=== PATIENT | male | born 1965 ===

== ENCOUNTER 2021-07-16 09:27 | Inpatient (IN) | payer SELFPAY ==
--- NOTE | 2021-07-16 09:49 | Emergency Department Report ---
ED General Adult HPI - General Chief complaint: Altered Mental Status Stated complaint: Seizure Time Seen by Provider: 07/16/21 09:47 Source: patient, EMS (Verbal report received from emergency medical services. EMS documentation not available at time of chart dictation ), RN notes reviewed, old records reviewed Mode of arrival: Stretcher Limitations: Altered Mental Status, Physical Limitation - History of Present Illness Initial comments: The patient is a 55-year-old gentleman. He is not known to myself previously. He is brought to the hospital by emergency medical services today with a complaint of weakness and altered mental status and possible seizure. EMS reports tachycardia in the field. They report normal Accu-Chek in the field. In the emergency room, the patient is awake, and follows commands, but is confused. He denies physical pain. He is not having hallucinations. He denies homicidality and suicidality. He drinks alcohol regularly. He does not believe he has any long-term medical problems that he is aware of. He is somewhat confused in the emergency room, with tremors, tongue fasciculations, and does not know if he has had an alcohol withdrawal seizure previously. Patient not accompanied by friends or family in the past for collateral information or additional information. - Related Data Allergies Allergy/AdvReac Type Severity Reaction Status Date / Time No Known Allergies Allergy Unverified 07/16/21 09:42 ED Review of Systems ROS: Stated complaint: Seizure Other details as noted in HPI Comment: Unobtainable due to pts medical conditions Constitutional: malaise, weakness Respiratory: denies: cough Cardiovascular: denies: chest pain Gastrointestinal: denies: abdominal pain Neurological: weakness Psychiatric: denies: homicidal thoughts, suicidal thoughts ED Physical Exam - General Limitations: Altered Mental Status, Physical Limitation General appearance: alert, anxious, in distress, obese - Head Head exam: Present: atraumatic, normocephalic - Eye Eye exam: Present: normal appearance, EOMI. Absent: nystagmus - ENT ENT exam: Present: mucous membranes dry, normal external ear exam, other (Tongue fasciculations noted) - Neck Neck exam: Present: normal inspection, full ROM. Absent: tenderness, meningismus - Respiratory Respiratory exam: Present: normal lung sounds bilaterally. Absent: respiratory distress, wheezes, rales, rhonchi, stridor, decreased breath sounds - Cardiovascular Cardiovascular Exam: Present: normal rhythm, tachycardia, normal heart sounds. Absent: bradycardia, irregular rhythm, systolic murmur, diastolic murmur, rubs, gallop - GI/Abdominal GI/Abdominal exam: Present: soft. Absent: distended, tenderness, guarding, rebound, rigid, pulsatile mass - Rectal Rectal exam: Present: deferred - Extremities Exam Extremities exam: Present: normal inspection, full ROM, other (2+ pulses noted in the bilateral upper and lower extremities. There is no palpable cord. negative Homans sign. Muscular compartments are soft. The pelvis is stable.). Absent: pedal edema, calf tenderness - Back Exam Back exam: Present: normal inspection, full ROM. Absent: tenderness, CVA tenderness (R), CVA tenderness (L), paraspinal tenderness, vertebral tenderness - Neurological Exam Neurological exam: Present: altered, other (No facial droop. Tongue midline. Extraocular movements intact bilaterally. Facial sensation intact to light touch in V1, V2, V3 distribution bilaterally. 5 and a 5 strength in 4 extremities. Sensation intact to light touch in 4 extremities.) - Psychiatric Psychiatric exam: Present: anxious. Absent: homicidal ideation, suicidal ideation - Skin Skin exam: Present: warm, dry, intact, normal color. Absent: rash ED Course Vital Signs 07/16/21 09:41 Temperature 99.1 F Pulse Rate 126 H Respiratory 16 Rate Blood Pressure 168/137 [Right] O2 Sat by Pulse 97 Oximetry ED Medical Decision Making - Lab Data Result diagrams: 07/16/21 10:57 07/16/21 09:57 Vital Signs 07/16/21 09:41 Temperature 99.1 F Pulse Rate 126 H Respiratory 16 Rate Blood Pressure 168/137 [Right] O2 Sat by Pulse 97 Oximetry Lab Results 07/16/21 07/16/21 07/16/21 Range/Units 09:57 09:57 09:57 PT 13.6 (12.2-14.9) Sec. INR 0.94 (0.87-1.13) APTT 26.1 (24.2-36.6) Sec. Sodium 135 L (137-145) mmol/L Potassium 3.8 (3.6-5.0) mmol/L Chloride 91.7 L (98-107) mmol/L Carbon Dioxide 18 L (22-30) mmol/L Anion Gap 29 mmol/L BUN 6 L (9-20) mg/dL Creatinine 0.9 (0.8-1.3) mg/dL Estimated GFR > 60 ml/min BUN/Creatinine Ratio 7 % Glucose 241 H (75-100) mg/dL POC Glucose (70-105) mg/dL Calcium 9.3 (8.4-10.2) mg/dL Magnesium 1.40 L (1.7-2.3) mg/dL Total Bilirubin 0.50 (0.1-1.2) mg/dL AST 194 H (5-40) units/L ALT 123 H (7-56) units/L Alkaline Phosphatase 122 (35-129) units/L Ammonia 47.0 (25-60) umol/L Total Creatine Kinase 176 H (55-170) units/L Total Protein 8.9 H (6.3-8.2) g/dL Albumin 4.5 (3.9-5) g/dL Albumin/Globulin Ratio 1.0 % Salicylates (2.8-20.0) mg/dL Acetaminophen (10.0-30.0) ug/mL Plasma/Serum Alcohol (0-0.07) % 07/16/21 07/16/21 07/16/21 Range/Units 09:57 09:57 09:57 PT (12.2-14.9) Sec. INR (0.87-1.13) APTT (24.2-36.6) Sec. Sodium (137-145) mmol/L Potassium (3.6-5.0) mmol/L Chloride (98-107) mmol/L Carbon Dioxide (22-30) mmol/L Anion Gap mmol/L BUN (9-20) mg/dL Creatinine (0.8-1.3) mg/dL Estimated GFR ml/min BUN/Creatinine Ratio % Glucose (75-100) mg/dL POC Glucose (70-105) mg/dL Calcium (8.4-10.2) mg/dL Magnesium (1.7-2.3) mg/dL Total Bilirubin (0.1-1.2) mg/dL AST (5-40) units/L ALT (7-56) units/L Alkaline Phosphatase (35-129) units/L Ammonia (25-60) umol/L Total Creatine Kinase (55-170) units/L Total Protein (6.3-8.2) g/dL Albumin (3.9-5) g/dL Albumin/Globulin Ratio % Salicylates < 0.3 L (2.8-20.0) mg/dL Acetaminophen 5.0 L (10.0-30.0) ug/mL Plasma/Serum Alcohol < 0.01 (0-0.07) % 07/16/21 07/16/21 Range/Units 09:57 10:04 PT (12.2-14.9) Sec. INR (0.87-1.13) APTT (24.2-36.6) Sec. Sodium (137-145) mmol/L Potassium (3.6-5.0) mmol/L Chloride (98-107) mmol/L Carbon Dioxide (22-30) mmol/L Anion Gap mmol/L BUN (9-20) mg/dL Creatinine (0.8-1.3) mg/dL Estimated GFR ml/min BUN/Creatinine Ratio % Glucose (75-100) mg/dL POC Glucose 251 H (70-105) mg/dL Calcium (8.4-10.2) mg/dL Magnesium (1.7-2.3) mg/dL Total Bilirubin (0.1-1.2) mg/dL AST (5-40) units/L ALT (7-56) units/L Alkaline Phosphatase (35-129) units/L Ammonia (25-60) umol/L Total Creatine Kinase 176 H (55-170) units/L Total Protein (6.3-8.2) g/dL Albumin (3.9-5) g/dL Albumin/Globulin Ratio % Salicylates (2.8-20.0) mg/dL Acetaminophen (10.0-30.0) ug/mL Plasma/Serum Alcohol (0-0.07) % - EKG Data -: EKG Interpreted by Ri EKG shows normal: sinus rhythm Rate: normal - EKG Data When compared to previous EKG there are: previous EKG unavailable 07/16/21 12:13 EKG interpreted at 10: 45 Sinus rhythm, 87 bpm. Normal axis, normal intervals, motion artifact, and high left ventricular voltage. This is an abnormal EKG. This is not a STEMI. - Radiology Data Radiology results: pending, report reviewed, image reviewed CT HEAD WITHOUT CONTRAST INDICATION / CLINICAL INFORMATION: Seizure. Altered mental status. TECHNIQUE: Axial imaging performed from the skull apex through the skull base without the use of contrast. Sagittal and coronal reformatted images. All CT scans at this location are performed using CT dose reduction for ALARA by means of automated exposure control. COMPARISON: None available. FINDINGS: CEREBRAL PARENCHYMA: Mild diffuse volume loss and chronic microvascular ischemic changes in the white matter are noted. 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 Subcentimeter chronic lacunar infarct is also identified in the posterior right thalamus. No acute parenchymal abnormality is detected. HEMORRHAGE: None. EXTRA-AXIAL SPACES: Normal in size and morphology for the patient's age. VENTRICULAR SYSTEM: Normal in size and morphology for the patient's age. MIDLINE SHIFT OR HERNIATION: None. CEREBELLUM / BRAINSTEM: No significant abnormality. CALVARIUM: No significant abnormality. ORBITS: Normal as visualized. PARANASAL SINUSES / MASTOID AIR CELLS: Normal as visualized. SOFT TISSUES of HEAD: No significant abnormality. ADDITIONAL FINDINGS: None. IMPRESSION: No acute intracranial abnormality. Chronic findings as outlined above. CT CERVICAL SPINE WITHOUT CONTRAST INDICATION: Seizure. TECHNIQUE: Axial imaging performed through the cervical spine without the use of contrast. Sagittal and coronal reconstructed images were also reviewed. All CT scans at this location are performed using CT dose reduction for ALARA by means of automated exposure control. COMPARISON: None FINDINGS: Alignment: Spinal alignment is normal. Bones: There is no acute osseous abnormality. Minimal discogenic DJD is identified at C4-5, C5-6 and C6-7. The remaining levels are unremarkable. Soft tissues: No acute or significant incidental soft tissue abnormality. IMPRESSION: No acute abnormality. Signer Name: Clement Sheets Jr, MD Signed: 07/16/2021 9:46 AM Workstation Name: [id number] CHEST 1 VIEW 07/16/2021 9:51 AM INDICATION / CLINICAL INFORMATION: Altered Mental Status. COMPARISON: None available. FINDINGS: SUPPORT DEVICES: None. HEART / MEDIASTINUM: No significant abnormality. LUNGS / PLEURA: No significant pulmonary or pleural abnormality. No pneumothorax. ADDITIONAL FINDINGS: No significant additional findings. IMPRESSION: 1. No acute findings. Signer Name: Wilson Valle MD Signed: 07/16/2021 9:06 AM Workstation Name: [id number] - Medical Decision Making Differential diagnosis, including but not limited to: Alcohol withdrawal, alc ohol-related seizure, electrolyte derangement, dehydration, transaminitis Assessment and plan: 55-year-old gentleman with evidence of alcohol withdrawal, manifested by seizure, tremor, confusion, tongue fasciculations, laboratory studies demonstrate stigmata of alcoholic disease, including thrombocytopenia, metabolic acidosis, and transaminitis. A noncontrast CT scan of the brain and cervical spine were negative for acute traumatic findings. Chest x-ray was unremarkable. Patient will be given Valium, banana bag and IV fluids. Urinalysis is pending. He is cooperative and not homicidal or suicidal at this time. His initial ciwa score was 20 The patient meets criteria for admission hospitalization secondary to the aforementioned. Hospital physician, Dr. Song to admit patient to the medical service. Critical Care Time: Yes Critical care time in (mins) excluding proc time.: 35 Critical care attestation.: If time is entered above; I have spent that time in minutes in the direct care of this critically ill patient, excluding procedure time. ED Disposition Clinical Impression: Transaminitis, Thrombocytopenia, Metabolic acidosis, Alcohol withdrawal delirium, acute, hyperactive, Hypomagnesemia Disposition: ADMITTED INPATIENT Is pt being admited?: Yes Does the pt Need Aspirin: No Condition: Fair Referrals: PRIMARY CARE, [Primary Care Provider] - 3-5 Days
[2021-07-16] MEDS ORDERED: levETIRAcetam 1000 MG/NS 0.75% 1,000 MG/100 ML BAG IV ONE (10:02)
[2021-07-16] MEDS ORDERED: LORazepam 2 MG/ML VIAL IV PRN (10:02)
[2021-07-16] MEDS ORDERED: diazePAM 10 MG/2 ML SYRINGE IV ONE (10:02)
[2021-07-16] MEDS ORDERED: SODIUM CHLORIDE 0.9% 1000 ML 1,000 ML ONE (10:05)
--- NOTE | 2021-07-16 10:11 | XRay Report ---
CHEST 1 VIEW 07/16/2021 9:51 AM INDICATION / CLINICAL INFORMATION: Altered Mental Status. COMPARISON: None available. FINDINGS: SUPPORT DEVICES: None. HEART / MEDIASTINUM: No significant abnormality. LUNGS / PLEURA: No significant pulmonary or pleural abnormality. No pneumothorax. ADDITIONAL FINDINGS: No significant additional findings. IMPRESSION: 1. No acute findings. Signer Name: Wilson Valle MD Signed: 07/16/2021 10:06 AM Workstation Name: [id number]
[2021-07-16] MEDS: chlordiazePOXIDE 25 MG CAP PO PRN (10:26)
[2021-07-16] MEDS: THIAMINE 100 MG, FOLIC ACID 1 MG, MULTIPLE VITAMIN INJ, ADULT 10 ML in SODIUM CHLORIDE ... IV ONE (10:26)
[2021-07-16 10:45] LABS: Alanine Aminotransferase 123 units/L (7-56); Albumin 4.5 g/dL (3.9-5); BUN/Creatinine Ratio 7; Blood Urea Nitrogen 6 mg/dL (9-20); Calcium 9.3 mg/dL (8.4-10.2); Hemolysis Index 5
--- NOTE | 2021-07-16 10:51 | Cat Scan Report ---
CT HEAD WITHOUT CONTRAST INDICATION / CLINICAL INFORMATION: Seizure. Altered mental status. TECHNIQUE: Axial imaging performed from the skull apex through the skull base without the use of cont rast. Sagittal and coronal reformatted images. All CT scans at this location are performed using CT dose reduction for ALARA by means of automated exposure control. COMPARISON: None available. FINDINGS: CEREBRAL PARENCHYMA: Mild diffuse volume loss and chronic microvascular ischemic changes in the white matter are noted. A large chronic infarct in the right MCA distribution measures up to 7.7 x 4.1 m i n axial plane. Subcentimeter chronic lacunar infarct is also identified in the posterior right thalam us. No acute parenchymal abnormality is detected. HEMORRHAGE: None. EXTRA-AXIAL SPACES: Normal in size and morphology for the patient's age. VENTRICULAR SYSTEM: Normal in size and morphology for the patient's age. MIDLINE SHIFT OR HERNIATION: None. CEREBELLUM / BRAINSTEM: No significant abnormality. CALVARIUM: No significant abnormality. ORBITS: Normal as visualized. PARANASAL SINUSES / MASTOID AIR CELLS: Normal as visualized. SOFT TISSUES of HEAD: No significant abnormality. ADDITIONAL FINDINGS: None. IMPRESSION: No acute intracranial abnormality. Chronic findings as outlined above. CT CERVICAL SPINE WITHOUT CONTRAST INDICATION: Seizure. TECHNIQUE: Axial imaging performed through the cervical spine without the use of contrast. Sagittal and coronal reconstructed images were also reviewed. All CT scans at this location are performed us ing CT dose reduction for ALARA by means of automated exposure control. COMPARISON: None FINDINGS: Alignment: Spinal alignment is normal. Bones: There is no acute osseous abnormality. Minimal discogenic DJD is identified at C4-5, C5-6 an d C6-7. The remaining levels are unremarkable. Soft tissues: No acute or significant incidental soft tissue abnormality. IMPRESSION: No acute abnormality. Signer Name: Clement Sheets Jr, MD Signed: 07/16/2021 10:46 AM Workstation Name: [id number]
[2021-07-16 10:54] LABS: INR 0.94 (0.87-1.13); Partial Thromboplastin Time 26.1 Sec. (24.2-36.6)
[2021-07-16] MEDS ORDERED: LACTATED RINGERS 1,000 ML IV ONE (10:54)
[2021-07-16 11:21] LABS: Hematocrit 41.3 % (35.5-45.6); Hemoglobin 13.3 gm/dl (11.8-15.2); Mean Corpuscular HGB Conc 32 % (32-34); Mean Corpuscular Volume 97 fl (84-94); Red Blood Count 4.26 M/mm3 (3.65-5.03)
[2021-07-16 11:26] LABS: Platelet Count 91 K/mm3 (140-440)
[2021-07-16] MEDS: LORazepam 2 MG/ML VIAL IV PRN ×5 (12:01→23:24)
[2021-07-16] MEDS: SODIUM CHLORIDE 0.9% 1000 ML 3,000 ML IV ONE ×2 (12:06→12:07)
[2021-07-16] MEDS ORDERED: MAGNESIUM SULFATE 2 GM/50 ML BAG IV ONE (12:18)
[2021-07-16 13:56] LABS: Band Neutrophils # (Manual) 0.2 K/mm3; Total Cells Counted 100
[2021-07-16 13:57] LABS: Platelet Estimate Consistent w Auto
[2021-07-16] MEDS ORDERED: SODIUM BICARB 8.4% 50 MEQ/50 ML SYRINGE IV ONE (17:30)
--- NOTE | 2021-07-16 17:39 | History and Physical Report ---
History of Present Illness Chief complaint: He said he was sick History of present illness: 55 YO Male with ETOH Dependence presents to ED for evaluation. Patient is stuporous with diminished cognition at the time my evaluation is unable to provide history. Patient history provided by EMS staff, ED staff, as well as information gained from aislinn Winston. As per staff EMS was notified by aislinn Winston when patient was found to be confused and approached a neighbor for assistance. EMS was notified and upon arrival the patient was found to be in distress and subsequent transported to [facility] for further care and evaluation of the aforementioned symptoms. The patient was seen and evaluated in the emergency department. All lab and imaging studies reviewed. Patient found to be tremulous, with confabulations, nausea, and have clinical symptoms consistent with delirium tremens, metabolic acidosis, metabolic encephalopathy, as well as chronic liver disease complicated by elevated liver function test. Patient admitted to medical floor and initiated on CIWA protocol and treated with supportive care. Patient remains stuporous at the time my evaluation but has a positive gag reflex and able to protect his airway without difficulty. No further history is obtainable. No prior admission for review. No medication listed at time of admission for reconciliation. Advanced care planning conducted in ED. Past History Past Medical History: No medical history, other (Unable to obtain) Past Surgical History: No surgical history, Other (Unable to obtain) Social history: single, other (Unable to obtain) Medications and Allergies Allergies Allergy/AdvReac Type Severity Reaction Status Date / Time No Known Allergies Allergy Unverified 07/16/21 09:42 Active Meds: Active Medications Chlordiazepoxide HCl (Chlordiazepoxide 25 Mg Cap) 50 mg PO Q1HR PRN PRN Reason: CIWA-Ar 8-15 Last Admin: 07/16/21 10:26 Dose: 50 mg Documented by: Lorazepam (Lorazepam 2 Mg/Ml Vial) 2 mg IV Q1HR PRN PRN Reason: CIWA-Ar 8-15 Lorazepam (Lorazepam 2 Mg/Ml Vial) 4 mg IV Q1HR PRN PRN Reason: CIWA-Ar 16-25 Last Admin: 07/16/21 12:01 Dose: 4 mg Documented by: Lorazepam (Lorazepam 2 Mg/Ml Vial) 4 mg IV Q15MIN PRN PRN Reason: CIWA-Ar >25 Review of Systems ROS unobtainable: due to mental status Exam - Constitutional Vitals: Temp Pulse Resp BP Pulse Ox 99.1 F 100 H 21 139/76 95 07/16/21 09:41 07/16/21 15:31 07/16/21 15:31 07/16/21 15:31 07/16/21 15:31 General appearance: Present: mild distress - EENT Eyes: Present: PERRL ENT: clear oral mucosa, hearing decreased - Neck Neck: Present: supple, normal ROM - Respiratory Respiratory effort: normal Respiratory: bilateral: CTA - Cardiovascular Rhythm: other (Tachycardia) Heart Sounds: Present: S1 & S2. Absent: rub, click - Extremities Extremities: pulses symmetrical, No edema Peripheral Pulses: within normal limits - Abdominal General gastrointestinal: Present: soft, non-tender, non-distended, normal bowel sounds Male genitourinary: Present: normal - Integumentary Integumentary: Present: dry, clammy, decreased turgor - Musculoskeletal Musculoskeletal: generalized weakness - Psychiatric Psychiatric: no appropriate mood/affect, no intact judgment & insight, no memory intact, agitated - Neurologic Neurologic: CNII-XII intact, no focal deficits, moves all extremities, no gait normal Results - Labs CBC & Chem 7: 07/16/21 10:57 07/16/21 09:57 Labs: Abnormal lab results 07/16/21 07/16/21 07/16/21 Range/Units 09:57 09:57 09:57 MCV (84-94) fl Plt Count (140-440) K/mm3 Seg Neuts % (Manual) (40.0-70.0) % Lymphocytes % (Manual) (13.4-35.0) % Lymphocytes # (Manual) (1.2-5.4) K/mm3 Sodium 135 L (137-145) mmol/L Chloride 91.7 L (98-107) mmol/L Carbon Dioxide 18 L (22-30) mmol/L BUN 6 L (9-20) mg/dL Glucose 241 H (75-100) mg/dL POC Glucose (70-105) mg/dL Magnesium 1.40 L (1.7-2.3) mg/dL AST 194 H (5-40) units/L ALT 123 H (7-56) units/L Total Creatine Kinase 176 H (55-170) units/L Total Protein 8.9 H (6.3-8.2) g/dL Salicylates < 0.3 L (2.8-20.0) mg/dL Acetaminophen 5.0 L (10.0-30.0) ug/mL 07/16/21 07/16/21 07/16/21 Range/Units 09:57 10:04 10:57 MCV 97 H (84-94) fl Plt Count 91 L (140-440) K/mm3 Seg Neuts % (Manual) 89.0 H (40.0-70.0) % Lymphocytes % (Manual) 6.0 L (13.4-35.0) % Lymphocytes # (Manual) 0.5 L (1.2-5.4) K/mm3 Sodium (137-145) mmol/L Chloride (98-107) mmol/L Carbon Dioxide (22-30) mmol/L BUN (9-20) mg/dL Glucose (75-100) mg/dL POC Glucose 251 H (70-105) mg/dL Magnesium (1.7-2.3) mg/dL AST (5-40) units/L ALT (7-56) units/L Total Creatine Kinase 176 H (55-170) units/L Total Protein (6.3-8.2) g/dL Salicylates (2.8-20.0) mg/dL Acetaminophen (10.0-30.0) ug/mL Assessment and Plan - Patient Problems (1) Delirium tremens Current Visit: Yes Status: Acute Plan to address problem: Alcohol withdrawal protocol: CIWA protocol, IV fluid resuscitation therapy, banana bag, thiamine, folic acid, multivitamin, magnesium level, phosphorus level, neuro check, seizure precautions, aspiration precautions (2) Metabolic encephalopathy Current Visit: Yes Status: Acute Plan to address problem: CTA, neuro check, seizure cautions, aspiration precautions, supportive care. (3) Metabolic acidosis Current Visit: Yes Status: Acute Plan to address problem: BMP, IV fluid resuscitation therapy, repeat BMP in a.m. (4) Transaminitis Current Visit: Yes Status: Acute (5) DVT prophylaxis Current Visit: Yes Status: Acute Plan to address problem: SCDs bilateral lower extremities while in bed (6) Advance care planning Current Visit: Yes Status: Acute Plan to address problem: Disease education conducted, care plan discussed, diagnoses discussed, prognosis discussed, +30 minutes.
[2021-07-16] MEDS ORDERED: ALBUTEROL 2.5 MG/3 ML NEBU IH PRN (17:44)
[2021-07-16] MEDS ORDERED: HYDROmorphone 1 MG/1 ML INJ IV PRN (17:44)
[2021-07-16] MEDS ORDERED: oxyCODONE /ACETAMINOPHEN 5-325MG TAB PO PRN (17:44)
[2021-07-16] MEDS ORDERED: ACETAMINOPHEN 325 MG TAB PO PRN (17:44)
[2021-07-16] MEDS ORDERED: ONDANSETRON 4 MG/2 ML INJ IV PRN (17:44)
[2021-07-16] MEDS ORDERED: MAGNESIUM SULFATE 1 GM in SODIUM CHLORIDE 0.9% 50 ML IV ONE (17:51)
[2021-07-16] MEDS ORDERED: THIAMINE 100 MG TAB PO ONE (18:00)
[2021-07-16] MEDS ORDERED: MULTIVITAMINS ,THERAPEUTIC TAB PO ONE (18:00)
--- NOTE | 2021-07-16 18:41 | Electrocardiograph Report ---
[facility] Test Date: 2021-07-16 Test Time: 10:45:26 Pat Name: NAA OLIVAS Department: Room: [facility] Gender: M Administration Internship: CHRIS : 1965 Requested By: HEAVENLY APODACA Order Number: [id number] Reading MD: Della Garcia Measurements Intervals [place] Rate: 87 P: 9 AK: 137 QRS: 35 QRSD: 97 T: 46 QT: 349 QTc: 421 Interpretive Statements Sinus rhythm No previous ECG available for comparison Electronically Signed On 07-16-2021 18:41:12 EST by Della Garcia
[2021-07-16] MEDS: SODIUM CHLORIDE 0.9% 1000 ML 1,000 ML IV SCH (23:24)
[2021-07-17] MEDS: LORazepam 2 MG/ML VIAL IV PRN ×3 (05:51→20:59)
[2021-07-17 06:37] LABS: Alanine Aminotransferase 95 units/L (7-56); Albumin 4.3 g/dL (3.9-5); Blood Urea Nitrogen 6 mg/dL (9-20); Calcium 8.7 mg/dL (8.4-10.2); Hemolysis Index 1
[2021-07-17 06:46] LABS: BUN/Creatinine Ratio 9
[2021-07-17] MEDS: FOLIC ACID 1 MG TAB PO SCH (09:05)
[2021-07-17] MEDS: SODIUM CHLORIDE 0.9% 1000 ML 1,000 ML IV SCH (09:05)
[2021-07-17] MEDS ORDERED: POTASSIUM CHLORIDE 20 MEQ PACKET FEEDTUBE SCH (13:00)
[2021-07-17] MEDS ORDERED: MAGNESIUM SULFATE 1 GM in SODIUM CHLORIDE 0.9% 50 ML IV ONE (13:00)
--- NOTE | 2021-07-17 15:30 | Progress Note ---
Assessment and Plan - Patient Problems (1) Delirium tremens Current Visit: Yes Status: Acute Plan to address problem: Alcohol withdrawal protocol: CIWA protocol, IV fluid resuscitation therapy, banana bag, thiamine, folic acid, multivitamin, magnesium repletion, phosphorus repletion, neuro check, seizure precautions, aspiration precautions (2) Metabolic encephalopathy Current Visit: Yes Status: Acute Plan to address problem: CTA, neuro check, seizure cautions, aspiration precautions, supportive care. (3) Metabolic acidosis Current Visit: Yes Status: Acute Plan to address problem: BMP, IV fluid resuscitation therapy, repeat BMP in a.m. (4) Transaminitis Current Visit: Yes Status: Acute (5) DVT prophylaxis Current Visit: Yes Status: Acute Plan to address problem: SCDs bilateral lower extremities while in bed (6) Advance care planning Current Visit: Yes Status: Acute Plan to address problem: Disease education conducted, care plan discussed, diagnoses discussed, prognosis discussed, +30 minutes. History Interval history: 55 YO Male HD #2 with with ETOH Dependence, [place] patient found to be tremulous again today. Patient has confabulations. Patient and medical strengths. And continues to be stuporous no reported nursing events. Hospitalist Physical - Constitutional Vitals: Temp Pulse Resp BP Pulse Ox 98.6 F 90 18 156/91 99 07/17/21 12:04 07/17/21 12:04 07/17/21 12:04 07/17/21 12:04 07/17/21 12:04 General appearance: Present: mild distress - EENT Eyes: Present: PERRL ENT: hearing decreased - Neck Neck: Present: supple - Respiratory Respiratory effort: normal Respiratory: bilateral: CTA - Cardiovascular Rhythm: regular Heart Sounds: Present: S1 & S2 - Extremities Extremities: no ischemia Peripheral Pulses: within normal limits - Abdominal General gastrointestinal: soft, non-tender, non-distended - Integumentary Integumentary: Present: clear, clammy - Psychiatric Psychiatric: no appropriate mood/affect, no intact judgment & insight, agitated - Neurologic Neurologic: CNII-XII intact, no focal deficits, moves all extremities, no gait normal Results - Labs CBC & Chem 7: 07/16/21 10:57 07/17/21 05:02 Labs: Laboratory Last Values WBC 7.8 K/mm3 (4.5-11.0) 07/16/21 10:57 RBC 4.26 M/mm3 (3.65-5.03) 07/16/21 10:57 Hgb 13.3 gm/dl (11.8-15.2) 07/16/21 10:57 Hct 41.3 % (35.5-45.6) 07/16/21 10:57 MCV 97 fl (84-94) H 07/16/21 10:57 MCH 31 pg (28-32) 07/16/21 10:57 MCHC 32 % (32-34) 07/16/21 10:57 RDW 14.0 % (13.2-15.2) 07/16/21 10:57 Plt Count 91 K/mm3 (140-440) L 07/16/21 10:57 Add Manual Diff Complete 07/16/21 10:57 Total Counted 100 07/16/21 10:57 Seg Neutrophils % Special Event Assistant 07/16/21 10:57 Seg Neuts % (Manual) 89.0 % (40.0-70.0) H 07/16/21 10:57 Band Neutrophils % 2.0 % 07/16/21 10:57 Lymphocytes % (Manual) 6.0 % (13.4-35.0) L 07/16/21 10:57 Monocytes % (Manual) 2.0 % (0.0-7.3) 07/16/21 10:57 Basophils % (Manual) 1.0 % (0.0-1.8) 07/16/21 10:57 Nucleated RBC % Not Reportable 07/16/21 10:57 Seg Neutrophils # Man 6.9 K/mm3 (1.8-7.7) 07/16/21 10:57 Band Neutrophils # 0.2 K/mm3 07/16/21 10:57 Lymphocytes # (Manual) 0.5 K/mm3 (1.2-5.4) L 07/16/21 10:57 Abs React Lymphs (Man) 0.0 K/mm3 07/16/21 10:57 Monocytes # (Manual) 0.2 K/mm3 (0.0-0.8) 07/16/21 10:57 Eosinophils # (Manual) 0.0 K/mm3 (0.0-0.4) 07/16/21 10:57 Basophils # (Manual) 0.1 K/mm3 (0.0-0.1) 07/16/21 10:57 Metamyelocytes # 0.0 K/mm3 07/16/21 10:57 Myelocytes # 0.0 K/mm3 07/16/21 10:57 Promyelocytes # 0.0 K/mm3 07/16/21 10:57 Blast Cells # 0.0 K/mm3 07/16/21 10:57 WBC Morphology Not Reportable 07/16/21 10:57 Hypersegmented Neuts Not Reportable 07/16/21 10:57 Hyposegmented Neuts Not Reportable 07/16/21 10:57 Hypogranular Neuts Not Reportable 07/16/21 10:57 Smudge Cells Not Reportable 07/16/21 10:57 Toxic Granulation Not Reportable 07/16/21 10:57 Toxic Vacuolation Not Reportable 07/16/21 10:57 Dohle Bodies Not Reportable 07/16/21 10:57 Pelger-Huet Anomaly Not Reportable 07/16/21 10:57 Lanette Rods Not Reportable 07/16/21 10:57 Platelet Estimate Consistent w auto 07/16/21 10:57 Clumped Platelets Not Reportable 07/16/21 10:57 Plt Clumps, EDTA Not Reportable 07/16/21 10:57 Large Platelets Not Reportable 07/16/21 10:57 Giant Platelets Not Reportable 07/16/21 10:57 Platelet Satelliting Not Reportable 07/16/21 10:57 Plt Morphology Comment Not Reportable 07/16/21 10:57 RBC Morphology Not Reportable 07/16/21 10:57 Dimorphic RBCs Not Reportable 07/16/21 10:57 Polychromasia Not Reportable 07/16/21 10:57 Hypochromasia Not Reportable 07/16/21 10:57 Poikilocytosis Not Reportable 07/16/21 10:57 Anisocytosis Not Reportable 07/16/21 10:57 Microcytosis Not Reportable 07/16/21 10:57 Macrocytosis Not Reportable 07/16/21 10:57 Spherocytes Not Reportable 07/16/21 10:57 Pappenheimer Bodies Not Reportable 07/16/21 10:57 Sickle Cells Not Reportable 07/16/21 10:57 Target Cells Not Reportable 07/16/21 10:57 Tear Drop Cells Not Reportable 07/16/21 10:57 Ovalocytes Not Reportable 07/16/21 10:57 Helmet Cells Not Reportable 07/16/21 10:57 Rice-[place] Bodies Not Reportable 07/16/21 10:57 [place] Rings Not Reportable 07/16/21 10:57 [place] Cells Not Reportable 07/16/21 10:57 Bite Cells Not Reportable 07/16/21 10:57 Crenated Cell Not Reportable 07/16/21 10:57 Elliptocytes Not Reportable 07/16/21 10:57 Acanthocytes (Spur) Not Reportable 07/16/21 10:57 Rouleaux Not Reportable 07/16/21 10:57 Hemoglobin C Crystals Not Reportable 07/16/21 10:57 Schistocytes Not Reportable 07/16/21 10:57 Malaria parasites Not Reportable 07/16/21 10:57 Tay Bodies Not Reportable 07/16/21 10:57 Hem Pathologist Commnt No 07/16/21 10:57 PT 13.6 Sec. (12.2-14.9) 07/16/21 09:57 INR 0.94 (0.87-1.13) 07/16/21 09:57 APTT 26.1 Sec. (24.2-36.6) 07/16/21 09:57 Sodium 141 mmol/L (137-145) 07/17/21 05:02 Potassium 2.8 mmol/L (3.6-5.0) L* D 07/17/21 05:02 Chloride 95.8 mmol/L (98-107) L 07/17/21 05:02 Carbon Dioxide 27 mmol/L (22-30) D 07/17/21 05:02 Anion Gap 21 mmol/L 07/17/21 05:02 BUN 6 mg/dL (9-20) L 07/17/21 05:02 Creatinine 0.7 mg/dL (0.8-1.3) L 07/17/21 05:02 Estimated GFR > 60 ml/min 07/17/21 05:02 BUN/Creatinine Ratio 9 % 07/17/21 05:02 Glucose 107 mg/dL (75-100) H 07/17/21 05:02 POC Glucose 109 mg/dL (70-105) H 07/17/21 11:14 Calcium 8.7 mg/dL (8.4-10.2) 07/17/21 05:02 Phosphorus 3.60 mg/dL (2.5-4.5) 07/16/21 18:03 Magnesium 1.40 mg/dL (1.7-2.3) L 07/16/21 09:57 Total Bilirubin 0.70 mg/dL (0.1-1.2) 07/17/21 05:02 AST 115 units/L (5-40) H 07/17/21 05:02 ALT 95 units/L (7-56) H 07/17/21 05:02 Alkaline Phosphatase 88 units/L (35-129) 07/17/21 05:02 Ammonia 47.0 umol/L (25-60) 07/16/21 09:57 Total Creatine Kinase 176 units/L (55-170) H 07/16/21 09:57 Total Creatine Kinase 176 units/L (55-170) H 07/16/21 09:57 Total Protein 8.7 g/dL (6.3-8.2) H 07/17/21 05:02 Albumin 4.3 g/dL (3.9-5) 07/17/21 05:02 Albumin/Globulin Ratio 1.0 % 07/17/21 05:02 Salicylates < 0.3 mg/dL (2.8-20.0) L 07/16/21 09:57 Acetaminophen 5.0 ug/mL (10.0-30.0) L 07/16/21 09:57 Plasma/Serum Alcohol < 0.01 % (0-0.07) 07/16/21 09:57 Sabillon/IV: Voiding Method Diaper Active Medications - Current Medications Current Medications: Generic Name Dose Route Start Last Admin Trade Name Freq PRN Reason Stop Dose Admin Acetaminophen 650 mg 07/16/21 17:44 Acetaminophen 325 Mg Tab PO Q4H PRN Pain MILD(1-3)/Fever >100.5/WRAY Albuterol 2.5 mg 07/16/21 17:44 Albuterol 2.5 Mg/3 Ml Nebu IH Q4HRT PRN Shortness Of Breath Chlordiazepoxide HCl 50 mg 07/16/21 10:02 07/16/21 10:26 Chlordiazepoxide 25 Mg Cap PO 50 mg Q1HR PRN Administration CIWA-Ar 8-15 Folic Acid 1 mg 07/17/21 10:00 07/17/21 09:05 Folic Acid 1 Mg Tab PO 1 mg QDAY MAU Administration Hydromorphone HCl 0.25 mg 07/16/21 17:44 Hydromorphone 1 Mg/1 Ml Inj IV Q23H PRN Pain, Moderate (4-6) Sodium Chloride 1,000 mls @ 125 mls/hr 07/16/21 17:45 07/17/21 09:05 Nacl 0.9% 1000 Ml IV 125 mls/hr DIRECT MAU Administration Lorazepam 2 mg 07/16/21 10:02 07/17/21 05:51 Lorazepam 2 Mg/Ml Vial IV 2 mg Q1HR PRN Administration CIWA-Ar 8-15 Lorazepam 4 mg 07/16/21 10:02 07/16/21 17:15 Lorazepam 2 Mg/Ml Vial IV 4 mg Q1HR PRN Administration CIWA-Ar 16-25 Lorazepam 4 mg 07/16/21 10:02 Lorazepam 2 Mg/Ml Vial IV Q15MIN PRN CIWA-Ar >25 Ondansetron HCl 4 mg 07/16/21 17:44 Ondansetron 4 Mg/2 Ml Inj IV Q8H PRN Nausea And Vomiting Oxycodone/Acetaminophen 1 tab 07/16/21 17:44 Oxycodone /Acetaminophen 5-325mg Tab PO Q16H PRN Pain, Moderate (4-6) Potassium Chloride 40 meq 07/17/21 13:00 07/17/21 13:21 Potassium Chloride 20 Meq Packet FEEDTUBE 07/17/21 17:00 40 meq ONCE@1300 MAU Administration Sodium Chloride 10 ml 07/16/21 22:00 07/17/21 09:05 Sodium Chloride 0.9% 10 Ml Flush Syringe IV 10 ml BID MAU Administration Sodium Chloride 10 ml 07/16/21 17:44 Sodium Chloride 0.9% 10 Ml Flush Syringe IV PRN PRN LINE FLUSH Nutrition/Malnutrition Assess - Dietary Evaluation Nutrition/Malnutrition Findings: Nutrition Notes Start: 07/17/21 12:11 Freq: Status: Active Protocol: Document 07/17/21 12:11 GEORGIE (Rec: 07/17/21 12:35 GEORGIE [id number]) Nutrition Notes Need for Assessment generated from: roll coverer,MST Initial or Follow up Assessment Other Pertinent Diagnosis Delirium Tremens,Met Encephalopathy, M Acidosis, Transaminitis, ETOH abuse. Current Diet NPO (07/16 17:46). Labs/Tests 07/17: K 2.8, Cl 95.8, BUN 6, Crea 0.7, AST 115, ALT 95, Tpro 8.7. Pertinent Medications 07/17: Folic ac, KCL, others nutritionally unremarkable. Height 5 ft 6 in Weight 77.111 kg [place] Body Weight (kg) 64.54 BMI 27.4 Weight Status Overweight Subjective/Other Information RD consult for skin risk assessment; < or = 18, and risk of Malnutrition; MST = 2. Pt shows no sign of concern for skin risk, nor risk of malnutrition at the trime. F/U on diet advancement. Percent of energy/protein needs met: Pt currentli on NPO. Burn Absent Trauma Absent GI Symptoms None Difficulty In Chewing Food Allergy No Skin Integrity/Comment Dry, clammy, decreased turgor. Current % PO Other Minimum of two criteria No #1 Nutrition Diagnosis No nutrition diagnosis at this time Comments: Pt shows no sign of concern for skin risk, nor risk of malnutrition at the trime. Is patient on ventilator? No Is Patient Ambulatory and/or Out of Bed Yes REE-([facility]-ambulatory/OOB) [ 2020.018 NUTR.MSJOOB] Kcal/Kg value to use for calculation 28 Approximate Energy Requirements Using 2159 kcal/Kg Calculation Used for Recommendations Kcal/kg Additional Notes Protein: 1-1.2 g/Kg; 65-78 g/ day (from IBW + critical care) . Fluids: 1 ml/Kcal, or as per MD. Nutrition Intervention Change Diet Order: Continue NPO asper MD; when pertinent, advance to Regular Diet (chopped meats). Goal #1 Maintain body weight within +/ -3% of current BWt during LOS. Goal #2 Reach and maintain acceptable chemistry lab values during LOS. Follow-Up By: 07/19/21 Additional Comments Continue monitoring Hydration, and BM; when pertinent, food tolerance, %PO intake of meals .
[2021-07-17 16:22] LABS: Bacteria,Urine 3+ /HPF (Negative); Bilirubin,Urine NEG (Negative); Blood,Urine SM (Negative); Color,Urine Yellow (Yellow); Mucus,Urine FEW /HPF; Sperm,Urine 1+ /HPF (NP)
[2021-07-17 16:23] LABS: Amphetamine Screen,Urine Negative; Cannabinoid Screen,Urine Negative; Cocaine Screen,Urine Negative; Methadone Screen,Urine Negative; Opiate Screen,Urine Negative
[2021-07-17 16:54] LABS: Benzodiazepines Screen,Urine Positive
[2021-07-18] MEDS: LORazepam 2 MG/ML VIAL IV PRN ×5 (00:04→23:22)
[2021-07-18 08:20] LABS: Hematocrit 41.2 % (35.5-45.6); Hemoglobin 13.4 gm/dl (11.8-15.2); Mean Corpuscular HGB Conc 33 % (32-34); Mean Corpuscular Volume 97 fl (84-94); Red Blood Count 4.27 M/mm3 (3.65-5.03); Red Cell Distribution Width 13.2 % (13.2-15.2)
[2021-07-18 08:22] LABS: Platelet Count 82 K/mm3 (140-440)
[2021-07-18 08:38] LABS: Alanine Aminotransferase 69 units/L (7-56); Albumin 4.2 g/dL (3.9-5); Blood Urea Nitrogen 11 mg/dL (9-20); Calcium 8.9 mg/dL (8.4-10.2); Hemolysis Index 4
[2021-07-18 08:40] LABS: BUN/Creatinine Ratio 16
[2021-07-18] MEDS ORDERED: MAGNESIUM SULFATE 3 GM in SODIUM CHLORIDE 0.9% 100 ML IV ONE (09:09)
[2021-07-18] MEDS: FOLIC ACID 1 MG TAB PO SCH (09:24)
[2021-07-18] MEDS: PHOS-NAK POWDER PACKET PO SCH ×3 (09:25→22:20)
--- NOTE | 2021-07-18 10:31 | Progress Note ---
Assessment and Plan Assessment and plan: (1) Delirium tremens Current Visit: Yes Status: Acute Plan to address problem: Alcohol withdrawal protocol: CIWA protocol, IV fluid resuscitation therapy, banana bag, thiamine, folic acid, multivitamin, magnesium repletion, phosphorus repletion, neuro check, seizure precautions, aspiration precautions (2) Metabolic encephalopathy Current Visit: Yes Status: Acute Plan to address problem: CTA, neuro check, seizure cautions, aspiration precautions, supportive care. (3) Metabolic acidosis Current Visit: Yes Status: Acute Plan to address problem: BMP, IV fluid resuscitation therapy, repeat BMP in a.m. (4) Transaminitis Current Visit: Yes Status: Acute (5) DVT prophylaxis Current Visit: Yes Status: Acute Plan to address problem: SCDs bilateral lower extremities while in bed (6) Advance care planning Current Visit: Yes Status: Acute Plan to address problem: Disease education conducted, care plan discussed, diagnoses discussed, prognosis discussed, +30 minutes. 07/18/21 Patient with alcohol withdrawal syndrome, delirium tremens. He is agitated. Nurse poultry hatchery supervisor recommend safety coordinator at bedside. Labs show low Mg, low Potassium. Replace and recheck in am History Interval history: Patient with delirium tremens Hospitalist Physical - Physical exam Narrative exam: Gen: Not in acute distress, lying in bed, HEENT: Normocephalic, atraumatic Neck: supple, no JVD Lungs: Clear to auscultation, no rales, no wheeze Heart:S1 and S2 reg, tachycardia, no gallop Abd: soft, non-tender,non-distended, normal bowel sounds Ext: No edema, no clubbing, no cyanosis Neuro: Awake, tremors - Constitutional Vitals: Temp Pulse Resp BP Pulse Ox 99.2 F 94 H 20 160/98 97 07/18/21 04:32 07/18/21 04:32 07/18/21 04:32 07/18/21 04:32 07/18/21 09:08 Results - Labs CBC & Chem 7: 07/18/21 07:37 07/18/21 07:37 Labs: Laboratory Last Values WBC 6.2 K/mm3 (4.5-11.0) 07/18/21 07:37 RBC 4.27 M/mm3 (3.65-5.03) 07/18/21 07:37 Hgb 13.4 gm/dl (11.8-15.2) 07/18/21 07:37 Hct 41.2 % (35.5-45.6) 07/18/21 07:37 MCV 97 fl (84-94) H 07/18/21 07:37 MCH 31 pg (28-32) 07/18/21 07:37 MCHC 33 % (32-34) 07/18/21 07:37 RDW 13.2 % (13.2-15.2) 07/18/21 07:37 Plt Count 82 K/mm3 (140-440) L 07/18/21 07:37 Add Manual Diff Complete 07/16/21 10:57 Total Counted 100 07/16/21 10:57 Seg Neutrophils % Supply Teacher 07/16/21 10:57 Seg Neuts % (Manual) 89.0 % (40.0-70.0) H 07/16/21 10:57 Band Neutrophils % 2.0 % 07/16/21 10:57 Lymphocytes % (Manual) 6.0 % (13.4-35.0) L 07/16/21 10:57 Monocytes % (Manual) 2.0 % (0.0-7.3) 07/16/21 10:57 Basophils % (Manual) 1.0 % (0.0-1.8) 07/16/21 10:57 Nucleated RBC % Not Reportable 07/16/21 10:57 Seg Neutrophils # Man 6.9 K/mm3 (1.8-7.7) 07/16/21 10:57 Band Neutrophils # 0.2 K/mm3 07/16/21 10:57 Lymphocytes # (Manual) 0.5 K/mm3 (1.2-5.4) L 07/16/21 10:57 Abs React Lymphs (Man) 0.0 K/mm3 07/16/21 10:57 Monocytes # (Manual) 0.2 K/mm3 (0.0-0.8) 07/16/21 10:57 Eosinophils # (Manual) 0.0 K/mm3 (0.0-0.4) 07/16/21 10:57 Basophils # (Manual) 0.1 K/mm3 (0.0-0.1) 07/16/21 10:57 Metamyelocytes # 0.0 K/mm3 07/16/21 10:57 Myelocytes # 0.0 K/mm3 07/16/21 10:57 Promyelocytes # 0.0 K/mm3 07/16/21 10:57 Blast Cells # 0.0 K/mm3 07/16/21 10:57 WBC Morphology Not Reportable 07/16/21 10:57 Hypersegmented Neuts Not Reportable 07/16/21 10:57 Hyposegmented Neuts Not Reportable 07/16/21 10:57 Hypogranular Neuts Not Reportable 07/16/21 10:57 Smudge Cells Not Reportable 07/16/21 10:57 Toxic Granulation Not Reportable 07/16/21 10:57 Toxic Vacuolation Not Reportable 07/16/21 10:57 Dohle Bodies Not Reportable 07/16/21 10:57 Pelger-Huet Anomaly Not Reportable 07/16/21 10:57 Lanette Rods Not Reportable 07/16/21 10:57 Platelet Estimate Consistent w auto 07/16/21 10:57 Clumped Platelets Not Reportable 07/16/21 10:57 Plt Clumps, EDTA Not Reportable 07/16/21 10:57 Large Platelets Not Reportable 07/16/21 10:57 Giant Platelets Not Reportable 07/16/21 10:57 Platelet Satelliting Not Reportable 07/16/21 10:57 Plt Morphology Comment Not Reportable 07/16/21 10:57 RBC Morphology Not Reportable 07/16/21 10:57 Dimorphic RBCs Not Reportable 07/16/21 10:57 Polychromasia Not Reportable 07/16/21 10:57 Hypochromasia Not Reportable 07/16/21 10:57 Poikilocytosis Not Reportable 07/16/21 10:57 Anisocytosis Not Reportable 07/16/21 10:57 Microcytosis Not Reportable 07/16/21 10:57 Macrocytosis Not Reportable 07/16/21 10:57 Spherocytes Not Reportable 07/16/21 10:57 Pappenheimer Bodies Not Reportable 07/16/21 10:57 Sickle Cells Not Reportable 07/16/21 10:57 Target Cells Not Reportable 07/16/21 10:57 Tear Drop Cells Not Reportable 07/16/21 10:57 Ovalocytes Not Reportable 07/16/21 10:57 Helmet Cells Not Reportable 07/16/21 10:57 Rice-[place] Bodies Not Reportable 07/16/21 10:57 [place] Rings Not Reportable 07/16/21 10:57 [place] Cells Not Reportable 07/16/21 10:57 Bite Cells Not Reportable 07/16/21 10:57 Crenated Cell Not Reportable 07/16/21 10:57 Elliptocytes Not Reportable 07/16/21 10:57 Acanthocytes (Spur) Not Reportable 07/16/21 10:57 Rouleaux Not Reportable 07/16/21 10:57 Hemoglobin C Crystals Not Reportable 07/16/21 10:57 Schistocytes Not Reportable 07/16/21 10:57 Malaria parasites Not Reportable 07/16/21 10:57 Tay Bodies Not Reportable 07/16/21 10:57 Hem Pathologist Commnt No 07/16/21 10:57 PT 13.6 Sec. (12.2-14.9) 07/16/21 09:57 INR 0.94 (0.87-1.13) 07/16/21 09:57 APTT 26.1 Sec. (24.2-36.6) 07/16/21 09:57 Sodium 140 mmol/L (137-145) 07/18/21 07:37 Potassium 3.1 mmol/L (3.6-5.0) L 07/18/21 07:37 Chloride 98.7 mmol/L (98-107) 07/18/21 07:37 Carbon Dioxide 22 mmol/L (22-30) 07/18/21 07:37 Anion Gap 22 mmol/L 07/18/21 07:37 BUN 11 mg/dL (9-20) 07/18/21 07:37 Creatinine 0.7 mg/dL (0.8-1.3) L 07/18/21 07:37 Estimated GFR > 60 ml/min 07/18/21 07:37 BUN/Creatinine Ratio 16 % 07/18/21 07:37 Glucose 121 mg/dL (75-100) H 07/18/21 07:37 POC Glucose 109 mg/dL (70-105) H 07/17/21 11:14 Calcium 8.9 mg/dL (8.4-10.2) 07/18/21 07:37 Phosphorus 3.00 mg/dL (2.5-4.5) 07/18/21 07:37 Magnesium 1.60 mg/dL (1.7-2.3) L 07/18/21 07:37 Total Bilirubin 0.70 mg/dL (0.1-1.2) 07/18/21 07:37 AST 65 units/L (5-40) H 07/18/21 07:37 ALT 69 units/L (7-56) H 07/18/21 07:37 Alkaline Phosphatase 83 units/L (35-129) 07/18/21 07:37 Ammonia 47.0 umol/L (25-60) 07/16/21 09:57 Total Creatine Kinase 176 units/L (55-170) H 07/16/21 09:57 Total Creatine Kinase 176 units/L (55-170) H 07/16/21 09:57 Total Protein 8.4 g/dL (6.3-8.2) H 07/18/21 07:37 Albumin 4.2 g/dL (3.9-5) 07/18/21 07:37 Albumin/Globulin Ratio 1.0 % 07/18/21 07:37 Urine Color Yellow (Yellow) 07/17/21 Unknown Urine Turbidity Clear (Clear) 07/17/21 Unknown Urine pH 7.0 (5.0-7.0) 07/17/21 Unknown Ur Specific Ste[place] 1.012 (1.003-1.030) 07/17/21 Unknown Urine Protein 100 mg/dl mg/dL (Negative) 07/17/21 Unknown Urine Glucose (UA) 50 mg/dL (Negative) 07/17/21 Unknown Urine Ketones 20 mg/dL (Negative) 07/17/21 Unknown Urine Blood Sm (Negative) 07/17/21 Unknown Urine Nitrite Neg (Negative) 07/17/21 Unknown Urine Bilirubin Neg (Negative) 07/17/21 Unknown Urine Urobilinogen 2.0 mg/dL (<2.0) 07/17/21 Unknown Ur Leukocyte Esterase Lg (Negative) 07/17/21 Unknown Urine WBC (Auto) 108.0 /HPF (0.0-6.0) H 07/17/21 Unknown Urine RBC (Auto) 30.0 /HPF (0.0-6.0) 07/17/21 Unknown U Epithel Cells (Auto) 1.0 /HPF (0-13.0) 07/17/21 Unknown Urine Bacteria (Auto) 3+ /HPF (Negative) 07/17/21 Unknown Urine Mucus Few /HPF 07/17/21 Unknown Urine Yeast (Budding) 1+ /HPF 07/17/21 Unknown Urine Sperm 1+ /HPF (VENEER LAYER) 07/17/21 Unknown Salicylates < 0.3 mg/dL (2.8-20.0) L 07/16/21 09:57 Urine Opiates Screen Negative 07/17/21 Unknown Urine Methadone Screen Negative 07/17/21 Unknown Acetaminophen 5.0 ug/mL (10.0-30.0) L 07/16/21 09:57 Ur Barbiturates Screen Negative 07/17/21 Unknown Ur Phencyclidine Scrn Negative 07/17/21 Unknown Ur Amphetamines Screen Negative 07/17/21 Unknown U Benzodiazepines Scrn Positive 07/17/21 Unknown Urine Cocaine Screen Negative 07/17/21 Unknown U Marijuana (THC) Screen Negative 07/17/21 Unknown Drugs of Abuse Note Disclamer 07/17/21 Unknown Plasma/Serum Alcohol < 0.01 % (0-0.07) 07/16/21 09:57 Sabillon/IV: Voiding Method Incontinent Active Medications - Current Medications Current Medications: Generic Name Dose Route Start Last Admin Trade Name Freq PRN Reason Stop Dose Admin Acetaminophen 650 mg 07/16/21 17:44 Acetaminophen 325 Mg Tab PO Q4H PRN Pain MILD(1-3)/Fever >100.5/WRAY Albuterol 2.5 mg 07/16/21 17:44 Albuterol 2.5 Mg/3 Ml Nebu IH Q4HRT PRN Shortness Of Breath Chlordiazepoxide HCl 50 mg 07/16/21 10:02 07/16/21 10:26 Chlordiazepoxide 25 Mg Cap PO 50 mg Q1HR PRN Administration CIWA-Ar 8-15 Folic Acid 1 mg 07/17/21 10:00 07/18/21 09:24 Folic Acid 1 Mg Tab PO Not Given QDAY MAU Hydromorphone HCl 0.25 mg 07/16/21 17:44 Hydromorphone 1 Mg/1 Ml Inj IV Q23H PRN Pain, Moderate (4-6) Sodium Chloride 1,000 mls @ 125 mls/hr 07/16/21 17:45 07/17/21 09:05 Nacl 0.9% 1000 Ml IV 125 mls/hr DIRECT MAU Administration Magnesium Sulfate 3 gm/ Sodium 106 mls @ 35.333 mls/hr 07/18/21 09:09 Chloride IV 07/18/21 12:08 ONCE ONE Lorazepam 2 mg 07/16/21 10:02 07/18/21 06:48 Lorazepam 2 Mg/Ml Vial IV 2 mg Q1HR PRN Administration CIWA-Ar 8-15 Lorazepam 4 mg 07/16/21 10:02 07/17/21 20:59 Lorazepam 2 Mg/Ml Vial IV 4 mg Q1HR PRN Administration CIWA-Ar 16-25 Lorazepam 4 mg 07/16/21 10:02 Lorazepam 2 Mg/Ml Vial IV Q15MIN PRN CIWA-Ar >25 Ondansetron HCl 4 mg 07/16/21 17:44 Ondansetron 4 Mg/2 Ml Inj IV Q8H PRN Nausea And Vomiting Oxycodone/Acetaminophen 1 tab 07/16/21 17:44 Oxycodone /Acetaminophen 5-325mg Tab PO Q16H PRN Pain, Moderate (4-6) Potassium Phos/Sodium Phos 1 each 07/18/21 10:00 07/18/21 09:25 Phos-Nak Powder Packet PO 07/21/21 09:59 Not Given Q8HR MAU Sodium Chloride 10 ml 07/16/21 22:00 07/18/21 09:25 Sodium Chloride 0.9% 10 Ml Flush Syringe IV 10 ml BID MAU Administration Sodium Chloride 10 ml 07/16/21 17:44 Sodium Chloride 0.9% 10 Ml Flush Syringe IV PRN PRN LINE FLUSH Nutrition/Malnutrition Assess - Dietary Evaluation Nutrition/Malnutrition Findings: Nutrition Notes Start: 07/17/21 12:11 Freq: Status: Active Protocol: Document 07/17/21 12:11 GEORGIE (Rec: 07/17/21 12:35 GEORGIE [id number]) Nutrition Notes Need for Assessment generated from: aerial sprayer,MST Initial or Follow up Assessment Other Pertinent Diagnosis Delirium Tremens,Met Encephalopathy, M Acidosis, Transaminitis, ETOH abuse. Current Diet NPO (07/16 17:46). Labs/Tests 07/17: K 2.8, Cl 95.8, BUN 6, Crea 0.7, AST 115, ALT 95, Tpro 8.7. Pertinent Medications 07/17: Folic ac, KCL, others nutritionally unremarkable. Height 5 ft 6 in Weight 77.111 kg [place] Body Weight (kg) 64.54 BMI 27.4 Weight Status Overweight Subjective/Other Information RD consult for skin risk assessment; < or = 18, and risk of Malnutrition; MST = 2. Pt shows no sign of concern for skin risk, nor risk of malnutrition at the trime. F/U on diet advancement. Percent of energy/protein needs met: Pt currentli on NPO. Burn Absent Trauma Absent GI Symptoms None Difficulty In Chewing Food Allergy No Skin Integrity/Comment Dry, clammy, decreased turgor. Current % PO Other Minimum of two criteria No #1 Nutrition Diagnosis No nutrition diagnosis at this time Comments: Pt shows no sign of concern for skin risk, nor risk of malnutrition at the trime. Is patient on ventilator? No Is Patient Ambulatory and/or Out of Bed Yes REE-([facility]-ambulatory/OOB) [ 2020.018 NUTR.MSJOOB] Kcal/Kg value to use for calculation 28 Approximate Energy Requirements Using 2159 kcal/Kg Calculation Used for Recommendations Kcal/kg Additional Notes Protein: 1-1.2 g/Kg; 65-78 g/ day (from IBW + critical care) . Fluids: 1 ml/Kcal, or as per MD. Nutrition Intervention Change Diet Order: Continue NPO asper MD; when pertinent, advance to Regular Diet (chopped meats). Goal #1 Maintain body weight within +/ -3% of current BWt during LOS. Goal #2 Reach and maintain acceptable chemistry lab values during LOS. Follow-Up By: 07/19/21 Additional Comments Continue monitoring Hydration, and BM; when pertinent, food tolerance, %PO intake of meals .
[2021-07-18] MEDS: D5W/0.45% NACL 1,000 ML IV SCH (13:21)
[2021-07-18] MEDS: hydrALAZINE 20 MG/1 ML INJ IV PRN (23:23)
[2021-07-19] MEDS: LORazepam 2 MG/ML VIAL IV PRN ×4 (04:47→13:33)
[2021-07-19] MEDS: PHOS-NAK POWDER PACKET PO SCH ×2 (05:11→13:34)
[2021-07-19 05:28] LABS: Blood Urea Nitrogen 9 mg/dL (9-20); Hemolysis Index 6
[2021-07-19 05:42] LABS: BUN/Creatinine Ratio 13
[2021-07-19] MEDS: hydrALAZINE 20 MG/1 ML INJ IV PRN (06:16)
[2021-07-19] MEDS: D5W/0.45% NACL 1,000 ML IV SCH (06:24)
[2021-07-19] MEDS ORDERED: MAGNESIUM SULFATE 2 GM/50 ML BAG IV ONE (08:30)
[2021-07-19] MEDS ORDERED: POTASSIUM PHOSPHATE 30 MMOL in SODIUM CHLORIDE 0.9% 500 ML 500 ML IV ONE (08:30)
[2021-07-19] MEDS: FOLIC ACID 1 MG TAB PO SCH (09:23)
--- NOTE | 2021-07-19 10:00 | Progress Note ---
Assessment and Plan Assessment and plan: (1) Delirium tremens Current Visit: Yes Status: Acute Plan to address problem: Alcohol withdrawal protocol: CIWA protocol, IV fluid resuscitation therapy, banana bag, thiamine, folic acid, multivitamin, magnesium repletion, phosphorus repletion, neuro check, seizure precautions, aspiration precautions (2) Metabolic encephalopathy Current Visit: Yes Status: Acute Plan to address problem: CTA, neuro check, seizure cautions, aspiration precautions, supportive care. (3) Metabolic acidosis Current Visit: Yes Status: Acute Plan to address problem: BMP, IV fluid resuscitation therapy, repeat BMP in a.m. (4) Transaminitis Current Visit: Yes Status: Acute (5) DVT prophylaxis Current Visit: Yes Status: Acute Plan to address problem: SCDs bilateral lower extremities while in bed (6) Advance care planning Current Visit: Yes Status: Acute Plan to address problem: Disease education conducted, care plan discussed, diagnoses discussed, prognosis discussed, +30 minutes. 07/18/21 Patient with alcohol withdrawal syndrome, delirium tremens. He is agitated. Nurse central office operator supervisor recommend industrial safety and health technician at bedside. Labs show low Mg, low Potassium. Replace and recheck in am. 07/19/21 Patient with alcohol withdrawal syndrome, delirium tremens. He is still agitated, confused. Labs show hypokalemia, hypophosphatemia. Mg is borderline normal. Will replace Potassium, Phos and Mg and recheck at 4pm today. History Interval history: Patient with delirium tremens agitated,confused Hospitalist Physical - Physical exam Narrative exam: Gen: Not in acute distress, lying in bed, HEENT: Normocephalic, atraumatic Neck: supple, no JVD Lungs: Clear to auscultation, no rales, no wheeze Heart:S1 and S2 reg, tachycardia, no gallop Abd: soft, non-tender,non-distended, normal bowel sounds Ext: No edema, no clubbing, no cyanosis Neuro: Awake, agitated, confused,tremors - Constitutional Vitals: Temp Pulse Resp BP Pulse Ox 98.5 F 112 H 18 160/92 96 07/19/21 04:37 07/19/21 06:16 07/19/21 04:37 07/19/21 06:16 07/19/21 04:37 Results - Labs CBC & Chem 7: 07/18/21 07:37 07/19/21 04:21 Labs: Laboratory Last Values WBC 6.2 K/mm3 (4.5-11.0) 07/18/21 07:37 RBC 4.27 M/mm3 (3.65-5.03) 07/18/21 07:37 Hgb 13.4 gm/dl (11.8-15.2) 07/18/21 07:37 Hct 41.2 % (35.5-45.6) 07/18/21 07:37 MCV 97 fl (84-94) H 07/18/21 07:37 MCH 31 pg (28-32) 07/18/21 07:37 MCHC 33 % (32-34) 07/18/21 07:37 RDW 13.2 % (13.2-15.2) 07/18/21 07:37 Plt Count 82 K/mm3 (140-440) L 07/18/21 07:37 Add Manual Diff Complete 07/16/21 10:57 Total Counted 100 07/16/21 10:57 Seg Neutrophils % Manager Client Support 07/16/21 10:57 Seg Neuts % (Manual) 89.0 % (40.0-70.0) H 07/16/21 10:57 Band Neutrophils % 2.0 % 07/16/21 10:57 Lymphocytes % (Manual) 6.0 % (13.4-35.0) L 07/16/21 10:57 Monocytes % (Manual) 2.0 % (0.0-7.3) 07/16/21 10:57 Basophils % (Manual) 1.0 % (0.0-1.8) 07/16/21 10:57 Nucleated RBC % Not Reportable 07/16/21 10:57 Seg Neutrophils # Man 6.9 K/mm3 (1.8-7.7) 07/16/21 10:57 Band Neutrophils # 0.2 K/mm3 07/16/21 10:57 Lymphocytes # (Manual) 0.5 K/mm3 (1.2-5.4) L 07/16/21 10:57 Abs React Lymphs (Man) 0.0 K/mm3 07/16/21 10:57 Monocytes # (Manual) 0.2 K/mm3 (0.0-0.8) 07/16/21 10:57 Eosinophils # (Manual) 0.0 K/mm3 (0.0-0.4) 07/16/21 10:57 Basophils # (Manual) 0.1 K/mm3 (0.0-0.1) 07/16/21 10:57 Metamyelocytes # 0.0 K/mm3 07/16/21 10:57 Myelocytes # 0.0 K/mm3 07/16/21 10:57 Promyelocytes # 0.0 K/mm3 07/16/21 10:57 Blast Cells # 0.0 K/mm3 07/16/21 10:57 WBC Morphology Not Reportable 07/16/21 10:57 Hypersegmented Neuts Not Reportable 07/16/21 10:57 Hyposegmented Neuts Not Reportable 07/16/21 10:57 Hypogranular Neuts Not Reportable 07/16/21 10:57 Smudge Cells Not Reportable 07/16/21 10:57 Toxic Granulation Not Reportable 07/16/21 10:57 Toxic Vacuolation Not Reportable 07/16/21 10:57 Dohle Bodies Not Reportable 07/16/21 10:57 Pelger-Huet Anomaly Not Reportable 07/16/21 10:57 Lanette Rods Not Reportable 07/16/21 10:57 Platelet Estimate Consistent w auto 07/16/21 10:57 Clumped Platelets Not Reportable 07/16/21 10:57 Plt Clumps, EDTA Not Reportable 07/16/21 10:57 Large Platelets Not Reportable 07/16/21 10:57 Giant Platelets Not Reportable 07/16/21 10:57 Platelet Satelliting Not Reportable 07/16/21 10:57 Plt Morphology Comment Not Reportable 07/16/21 10:57 RBC Morphology Not Reportable 07/16/21 10:57 Dimorphic RBCs Not Reportable 07/16/21 10:57 Polychromasia Not Reportable 07/16/21 10:57 Hypochromasia Not Reportable 07/16/21 10:57 Poikilocytosis Not Reportable 07/16/21 10:57 Anisocytosis Not Reportable 07/16/21 10:57 Microcytosis Not Reportable 07/16/21 10:57 Macrocytosis Not Reportable 07/16/21 10:57 Spherocytes Not Reportable 07/16/21 10:57 Pappenheimer Bodies Not Reportable 07/16/21 10:57 Sickle Cells Not Reportable 07/16/21 10:57 Target Cells Not Reportable 07/16/21 10:57 Tear Drop Cells Not Reportable 07/16/21 10:57 Ovalocytes Not Reportable 07/16/21 10:57 Helmet Cells Not Reportable 07/16/21 10:57 [place] Bodies Not Reportable 07/16/21 10:57 [place] Rings Not Reportable 07/16/21 10:57 [place] Cells Not Reportable 07/16/21 10:57 Bite Cells Not Reportable 07/16/21 10:57 Crenated Cell Not Reportable 07/16/21 10:57 Elliptocytes Not Reportable 07/16/21 10:57 Acanthocytes (Spur) Not Reportable 07/16/21 10:57 Rouleaux Not Reportable 07/16/21 10:57 Hemoglobin C Crystals Not Reportable 07/16/21 10:57 Schistocytes Not Reportable 07/16/21 10:57 Malaria parasites Not Reportable 07/16/21 10:57 Tay Bodies Not Reportable 07/16/21 10:57 Hem Pathologist Commnt No 07/16/21 10:57 PT 13.6 Sec. (12.2-14.9) 07/16/21 09:57 INR 0.94 (0.87-1.13) 07/16/21 09:57 APTT 26.1 Sec. (24.2-36.6) 07/16/21 09:57 Sodium 137 mmol/L (137-145) 07/19/21 04:21 Potassium 3.0 mmol/L (3.6-5.0) L 07/19/21 04:21 Chloride 98.3 mmol/L (98-107) 07/19/21 04:21 Carbon Dioxide 23 mmol/L (22-30) 07/19/21 04:21 Anion Gap 19 mmol/L 07/19/21 04:21 BUN 9 mg/dL (9-20) 07/19/21 04:21 Creatinine 0.7 mg/dL (0.8-1.3) L 07/19/21 04:21 Estimated GFR > 60 ml/min 07/19/21 04:21 BUN/Creatinine Ratio 13 % 07/19/21 04:21 Glucose 149 mg/dL (75-100) H 07/19/21 04:21 POC Glucose 166 mg/dL (70-105) H 07/19/21 07:30 Calcium 9.0 mg/dL (8.4-10.2) 07/19/21 04:21 Phosphorus 2.20 mg/dL (2.5-4.5) L D 07/19/21 04:21 Magnesium 1.70 mg/dL (1.7-2.3) 07/19/21 04:21 Total Bilirubin 0.70 mg/dL (0.1-1.2) 07/18/21 07:37 AST 65 units/L (5-40) H 07/18/21 07:37 ALT 69 units/L (7-56) H 07/18/21 07:37 Alkaline Phosphatase 83 units/L (35-129) 07/18/21 07:37 Ammonia 47.0 umol/L (25-60) 07/16/21 09:57 Total Creatine Kinase 176 units/L (55-170) H 07/16/21 09:57 Total Creatine Kinase 176 units/L (55-170) H 07/16/21 09:57 Total Protein 8.4 g/dL (6.3-8.2) H 07/18/21 07:37 Albumin 4.2 g/dL (3.9-5) 07/18/21 07:37 Albumin/Globulin Ratio 1.0 % 07/18/21 07:37 Urine Color Yellow (Yellow) 07/17/21 Unknown Urine Turbidity Clear (Clear) 07/17/21 Unknown Urine pH 7.0 (5.0-7.0) 07/17/21 Unknown Ur Specific [place] 1.012 (1.003-1.030) 07/17/21 Unknown Urine Protein 100 mg/dl mg/dL (Negative) 07/17/21 Unknown Urine Glucose (UA) 50 mg/dL (Negative) 07/17/21 Unknown Urine Ketones 20 mg/dL (Negative) 07/17/21 Unknown Urine Blood Sm (Negative) 07/17/21 Unknown Urine Nitrite Neg (Negative) 07/17/21 Unknown Urine Bilirubin Neg (Negative) 07/17/21 Unknown Urine Urobilinogen 2.0 mg/dL (<2.0) 07/17/21 Unknown Ur Leukocyte Esterase Lg (Negative) 07/17/21 Unknown Urine WBC (Auto) 108.0 /HPF (0.0-6.0) H 07/17/21 Unknown Urine RBC (Auto) 30.0 /HPF (0.0-6.0) 07/17/21 Unknown U Epithel Cells (Auto) 1.0 /HPF (0-13.0) 07/17/21 Unknown Urine Bacteria (Auto) 3+ /HPF (Negative) 07/17/21 Unknown Urine Mucus Few /HPF 07/17/21 Unknown Urine Yeast (Budding) 1+ /HPF 07/17/21 Unknown Urine Sperm 1+ /HPF (RISK CONTROL DIRECTOR) 07/17/21 Unknown Salicylates < 0.3 mg/dL (2.8-20.0) L 07/16/21 09:57 Urine Opiates Screen Negative 07/17/21 Unknown Urine Methadone Screen Negative 07/17/21 Unknown Acetaminophen 5.0 ug/mL (10.0-30.0) L 07/16/21 09:57 Ur Barbiturates Screen Negative 07/17/21 Unknown Ur Phencyclidine Scrn Negative 07/17/21 Unknown Ur Amphetamines Screen Negative 07/17/21 Unknown U Benzodiazepines Scrn Positive 07/17/21 Unknown Urine Cocaine Screen Negative 07/17/21 Unknown U Marijuana (THC) Screen Negative 07/17/21 Unknown Drugs of Abuse Note Disclamer 07/17/21 Unknown Plasma/Serum Alcohol < 0.01 % (0-0.07) 07/16/21 09:57 [place]/IV: Voiding Method Diaper Active Medications - Current Medications Current Medications: Generic Name Dose Route Start Last Admin Trade Name Freq PRN Reason Stop Dose Admin Acetaminophen 650 mg 07/16/21 17:44 Acetaminophen 325 Mg Tab PO Q4H PRN Pain MILD(1-3)/Fever >100.5/WRAY Albuterol 2.5 mg 07/16/21 17:44 Albuterol 2.5 Mg/3 Ml Nebu IH Q4HRT PRN Shortness Of Breath Chlordiazepoxide HCl 50 mg 07/16/21 10:02 07/16/21 10:26 Chlordiazepoxide 25 Mg Cap PO 50 mg Q1HR PRN Administration CIWA-Ar 8-15 Folic Acid 1 mg 07/17/21 10:00 07/19/21 09:23 Folic Acid 1 Mg Tab PO 1 mg QDAY MAU Administration Hydralazine HCl 10 mg 07/18/21 22:18 07/19/21 06:16 Hydralazine 20 Mg/1 Ml Inj IV 10 mg Q6H PRN Administration Hypertension Hydromorphone HCl 0.25 mg 07/16/21 17:44 Hydromorphone 1 Mg/1 Ml Inj IV Q23H PRN Pain, Moderate (4-6) Dextrose/Sodium Chloride 1,000 mls @ 75 mls/hr 07/18/21 13:00 07/19/21 06:24 D5/0.45ns IV 75 mls/hr DIRECT MAU Administration Levofloxacin/Dextrose 500 mg in 100 mls @ 100 mls/hr 07/18/21 16:00 07/18/21 16:04 Levaquin 500mg/100ml IV 100 mls/hr Q24H MAU Administration Protocol Magnesium Sulfate 2 gm in 50 mls @ 25 mls/hr 07/19/21 08:30 07/19/21 09:24 Magnesium Sulfate 2gm/50ml IV 07/19/21 10:29 25 mls/hr ONCE@0830 ONE Administration Potassium Phosphate 30 mmol/ 510 mls @ 85 mls/hr 07/19/21 08:30 07/19/21 09:24 Sodium Chloride IV 07/19/21 14:29 85 mls/hr ONCE@0830 ONE Administration Lorazepam 2 mg 07/16/21 10:02 07/19/21 06:47 Lorazepam 2 Mg/Ml Vial IV 2 mg Q1HR PRN Administration CIWA-Ar 8-15 Lorazepam 4 mg 07/16/21 10:02 07/19/21 04:47 Lorazepam 2 Mg/Ml Vial IV 4 mg Q1HR PRN Administration CIWA-Ar 16-25 Lorazepam 4 mg 07/16/21 10:02 Lorazepam 2 Mg/Ml Vial IV Q15MIN PRN CIWA-Ar >25 Ondansetron HCl 4 mg 07/16/21 17:44 Ondansetron 4 Mg/2 Ml Inj IV Q8H PRN Nausea And Vomiting Oxycodone/Acetaminophen 1 tab 07/16/21 17:44 Oxycodone /Acetaminophen 5-325mg Tab PO Q16H PRN Pain, Moderate (4-6) Potassium Phos/Sodium Phos 1 each 07/18/21 10:00 07/19/21 05:11 Phos-Nak Powder Packet PO 07/21/21 09:59 1 each Q8HR MAU Administration Sodium Chloride 10 ml 07/16/21 22:00 07/19/21 09:24 Sodium Chloride 0.9% 10 Ml Flush Syringe IV 10 ml BID MAU Administration Sodium Chloride 10 ml 07/16/21 17:44 Sodium Chloride 0.9% 10 Ml Flush Syringe IV PRN PRN LINE FLUSH Nutrition/Malnutrition Assess - Dietary Evaluation Nutrition/Malnutrition Findings: Nutrition Notes Start: 07/17/21 12:11 Freq: Status: Active Protocol: Document 07/17/21 12:11 GEORGIE (Rec: 07/17/21 12:35 GEORGIE [email or web address]) Nutrition Notes Need for Assessment generated from: podiatric aide,MST Initial or Follow up Assessment Other Pertinent Diagnosis Delirium Tremens,Met Encephalopathy, M Acidosis, Transaminitis, ETOH abuse. Current Diet NPO (07/16 17:46). Labs/Tests 07/17: K 2.8, Cl 95.8, BUN 6, Crea 0.7, AST 115, ALT 95, Tpro 8.7. Pertinent Medications 07/17: Folic ac, KCL, others nutritionally unremarkable. Height 5 ft 6 in Weight 77.111 kg [place] Body Weight (kg) 64.54 BMI 27.4 Weight Status Overweight Subjective/Other Information RD consult for skin risk assessment; < or = 18, and risk of Malnutrition; MST = 2. Pt shows no sign of concern for skin risk, nor risk of malnutrition at the [facility]. F/U on diet advancement. Percent of energy/protein needs met: Pt currentli on NPO. Burn Absent Trauma Absent GI Symptoms None Difficulty In Chewing Food Allergy No Skin Integrity/Comment Dry, clammy, decreased turgor. Current % PO Other Minimum of two criteria No #1 Nutrition Diagnosis No nutrition diagnosis at this time Comments: Pt shows no sign of concern for skin risk, nor risk of malnutrition at the [facility]. Is patient on ventilator? No Is Patient Ambulatory and/or Out of Bed Yes REE-([place]-St. Jeor-ambulatory/OOB) [ 2020.018 [id number]] Kcal/Kg value to use for calculation 28 Approximate Energy Requirements Using 2159 kcal/Kg Calculation Used for Recommendations Kcal/kg Additional Notes Protein: 1-1.2 g/Kg; 65-78 g/ day (from IBW + critical care) . Fluids: 1 ml/Kcal, or as per MD. Nutrition Intervention Change Diet Order: Continue NPO asper MD; when pertinent, advance to Regular Diet (chopped meats). Goal #1 Maintain body weight within +/ -3% of current BWt during LOS. Goal #2 Reach and maintain acceptable chemistry lab values during LOS. Follow-Up By: 07/19/21 Additional Comments Continue monitoring Hydration, and BM; when pertinent, food tolerance, %PO intake of meals .
[2021-07-19] MEDS: HALOPERIDOL LACTATE 5 MG/1 ML INJ IM PRN (15:41)
[2021-07-19] MEDS: atenoloL 25 MG TAB PO SCH (23:17)
[2021-07-19] MEDS: POTASSIUM CHLORIDE ER 20 MEQ TAB PO SCH (23:35)
[2021-07-20 05:13] LABS: Hematocrit 39.6 % (35.5-45.6); Hemoglobin 12.9 gm/dl (11.8-15.2); Mean Corpuscular HGB Conc 33 % (32-34); Mean Corpuscular Volume 97 fl (84-94); Platelet Count 104 K/mm3 (140-440); Red Cell Distribution Width 13.3 % (13.2-15.2)
[2021-07-20 05:24] LABS: BUN/Creatinine Ratio 13; Blood Urea Nitrogen 8 mg/dL (9-20); Calcium 8.6 mg/dL (8.4-10.2); Hemolysis Index 8
[2021-07-20] MEDS: POTASSIUM CHLORIDE ER 20 MEQ TAB PO SCH ×5 (05:56→23:24)
[2021-07-20] MEDS: hydrALAZINE 20 MG/1 ML INJ IV PRN (05:57)
[2021-07-20] MEDS: D5W/0.45% NACL 1,000 ML IV SCH (06:03)
[2021-07-20] MEDS ORDERED: MAGNESIUM SULFATE 4 GM/100 ML BAG IV ONE (07:33)
[2021-07-20] MEDS: LORazepam 2 MG/ML VIAL IV PRN ×4 (07:46→23:25)
[2021-07-20] MEDS: FOLIC ACID 1 MG TAB PO SCH (09:04)
[2021-07-20] MEDS: atenoloL 25 MG TAB PO SCH (09:04)
--- NOTE | 2021-07-20 09:28 | Progress Note ---
Assessment and Plan Assessment and plan: (1) Delirium tremens Current Visit: Yes Status: Acute Plan to address problem: Alcohol withdrawal protocol: CIWA protocol, IV fluid resuscitation therapy, banana bag, thiamine, folic acid, multivitamin, magnesium repletion, phosphorus repletion, neuro check, seizure precautions, aspiration precautions (2) Metabolic encephalopathy Current Visit: Yes Status: Acute Plan to address problem: CTA, neuro check, seizure cautions, aspiration precautions, supportive care. (3) Metabolic acidosis Current Visit: Yes Status: Acute Plan to address problem: BMP, IV fluid resuscitation therapy, repeat BMP in a.m. (4) Transaminitis Current Visit: Yes Status: Acute (5) DVT prophylaxis Current Visit: Yes Status: Acute Plan to address problem: SCDs bilateral lower extremities while in bed (6) Advance care planning Current Visit: Yes Status: Acute Plan to address problem: Disease education conducted, care plan discussed, diagnoses discussed, prognosis discussed, +30 minutes. 07/18/21 Patient with alcohol withdrawal syndrome, delirium tremens. He is agitated. Nurse grinding and spraying supervisor recommend health and safety trainer at bedside. Labs show low Mg, low Potassium. Replace and recheck in am. 07/19/21 Patient with alcohol withdrawal syndrome, delirium tremens. He is still agitated, confused. Labs show hypokalemia, hypophosphatemia. Mg is borderline normal. Will replace Potassium, Phos and Mg and recheck at 4pm today. 07/20/21 Patient with alcohol withdrawal syndrome, delirium tremens. He is still agitated, confused. Replace Potassium, magnesium and recheck labs in am History Interval history: Patient with delirium tremens agitated,confused Hospitalist Physical - Physical exam Narrative exam: Gen: Not in acute distress, lying in bed, HEENT: Normocephalic, atraumatic Neck: supple, no JVD Lungs: Clear to auscultation, no rales, no wheeze Heart:S1 and S2 reg, tachycardia, no gallop Abd: soft, non-tender,non-distended, normal bowel sounds Ext: No edema, no clubbing, no cyanosis Neuro: Awake, agitated, confused,tremors - Constitutional Vitals: Temp Pulse Resp BP Pulse Ox 97.9 F 90 20 121/64 98 07/20/21 04:49 07/20/21 09:04 07/20/21 04:49 07/20/21 09:04 07/20/21 04:49 Results - Labs CBC & Chem 7: 07/20/21 04:13 07/20/21 04:13 Labs: Laboratory Last Values WBC 5.1 K/mm3 (4.5-11.0) 07/20/21 04:13 RBC 4.10 M/mm3 (3.65-5.03) 07/20/21 04:13 Hgb 12.9 gm/dl (11.8-15.2) 07/20/21 04:13 Hct 39.6 % (35.5-45.6) 07/20/21 04:13 MCV 97 fl (84-94) H 07/20/21 04:13 MCH 32 pg (28-32) 07/20/21 04:13 MCHC 33 % (32-34) 07/20/21 04:13 RDW 13.3 % (13.2-15.2) 07/20/21 04:13 Plt Count 104 K/mm3 (140-440) L 07/20/21 04:13 Add Manual Diff Complete 07/16/21 10:57 Total Counted 100 07/16/21 10:57 Seg Neutrophils % Concrete Batcher 07/16/21 10:57 Seg Neuts % (Manual) 89.0 % (40.0-70.0) H 07/16/21 10:57 Band Neutrophils % 2.0 % 07/16/21 10:57 Lymphocytes % (Manual) 6.0 % (13.4-35.0) L 07/16/21 10:57 Monocytes % (Manual) 2.0 % (0.0-7.3) 07/16/21 10:57 Basophils % (Manual) 1.0 % (0.0-1.8) 07/16/21 10:57 Nucleated RBC % Not Reportable 07/16/21 10:57 Seg Neutrophils # Man 6.9 K/mm3 (1.8-7.7) 07/16/21 10:57 Band Neutrophils # 0.2 K/mm3 07/16/21 10:57 Lymphocytes # (Manual) 0.5 K/mm3 (1.2-5.4) L 07/16/21 10:57 Abs React Lymphs (Man) 0.0 K/mm3 07/16/21 10:57 Monocytes # (Manual) 0.2 K/mm3 (0.0-0.8) 07/16/21 10:57 Eosinophils # (Manual) 0.0 K/mm3 (0.0-0.4) 07/16/21 10:57 Basophils # (Manual) 0.1 K/mm3 (0.0-0.1) 07/16/21 10:57 Metamyelocytes # 0.0 K/mm3 07/16/21 10:57 Myelocytes # 0.0 K/mm3 07/16/21 10:57 Promyelocytes # 0.0 K/mm3 07/16/21 10:57 Blast Cells # 0.0 K/mm3 07/16/21 10:57 WBC Morphology Not Reportable 07/16/21 10:57 Hypersegmented Neuts Not Reportable 07/16/21 10:57 Hyposegmented Neuts Not Reportable 07/16/21 10:57 Hypogranular Neuts Not Reportable 07/16/21 10:57 Smudge Cells Not Reportable 07/16/21 10:57 Toxic Granulation Not Reportable 07/16/21 10:57 Toxic Vacuolation Not Reportable 07/16/21 10:57 Dohle Bodies Not Reportable 07/16/21 10:57 Pelger-Huet Anomaly Not Reportable 07/16/21 10:57 Lanette Rods Not Reportable 07/16/21 10:57 Platelet Estimate Consistent w auto 07/16/21 10:57 Clumped Platelets Not Reportable 07/16/21 10:57 Plt Clumps, EDTA Not Reportable 07/16/21 10:57 Large Platelets Not Reportable 07/16/21 10:57 Giant Platelets Not Reportable 07/16/21 10:57 Platelet Satelliting Not Reportable 07/16/21 10:57 Plt Morphology Comment Not Reportable 07/16/21 10:57 RBC Morphology Not Reportable 07/16/21 10:57 Dimorphic RBCs Not Reportable 07/16/21 10:57 Polychromasia Not Reportable 07/16/21 10:57 Hypochromasia Not Reportable 07/16/21 10:57 Poikilocytosis Not Reportable 07/16/21 10:57 Anisocytosis Not Reportable 07/16/21 10:57 Microcytosis Not Reportable 07/16/21 10:57 Macrocytosis Not Reportable 07/16/21 10:57 Spherocytes Not Reportable 07/16/21 10:57 Pappenheimer Bodies Not Reportable 07/16/21 10:57 Sickle Cells Not Reportable 07/16/21 10:57 Target Cells Not Reportable 07/16/21 10:57 Tear Drop Cells Not Reportable 07/16/21 10:57 Ovalocytes Not Reportable 07/16/21 10:57 Helmet Cells Not Reportable 07/16/21 10:57 Rice-[place]quadale Bodies Not Reportable 07/16/21 10:57 Franklin Rings Not Reportable 07/16/21 10:57 [place]ock Cells Not Reportable 07/16/21 10:57 Bite Cells Not Reportable 07/16/21 10:57 Crenated Cell Not Reportable 07/16/21 10:57 Elliptocytes Not Reportable 07/16/21 10:57 Acanthocytes (Spur) Not Reportable 07/16/21 10:57 Rouleaux Not Reportable 07/16/21 10:57 Hemoglobin C Crystals Not Reportable 07/16/21 10:57 Schistocytes Not Reportable 07/16/21 10:57 Malaria parasites Not Reportable 07/16/21 10:57 Tay Bodies Not Reportable 07/16/21 10:57 Hem Pathologist Commnt No 07/16/21 10:57 PT 13.6 Sec. (12.2-14.9) 07/16/21 09:57 INR 0.94 (0.87-1.13) 07/16/21 09:57 APTT 26.1 Sec. (24.2-36.6) 07/16/21 09:57 Sodium 137 mmol/L (137-145) 07/20/21 04:13 Potassium 3.3 mmol/L (3.6-5.0) L 07/20/21 04:13 Chloride 101.1 mmol/L (98-107) 07/20/21 04:13 Carbon Dioxide 22 mmol/L (22-30) 07/20/21 04:13 Anion Gap 17 mmol/L 07/20/21 04:13 BUN 8 mg/dL (9-20) L 07/20/21 04:13 Creatinine 0.6 mg/dL (0.8-1.3) L 07/20/21 04:13 Estimated GFR > 60 ml/min 07/20/21 04:13 BUN/Creatinine Ratio 13 % 07/20/21 04:13 Glucose 173 mg/dL (75-100) H 07/20/21 04:13 POC Glucose 166 mg/dL (70-105) H 07/19/21 07:30 Calcium 8.6 mg/dL (8.4-10.2) 07/20/21 04:13 Phosphorus 3.90 mg/dL (2.5-4.5) D 07/20/21 04:13 Magnesium 1.60 mg/dL (1.7-2.3) L 07/20/21 04:13 Total Bilirubin 0.70 mg/dL (0.1-1.2) 07/18/21 07:37 AST 65 units/L (5-40) H 07/18/21 07:37 ALT 69 units/L (7-56) H 07/18/21 07:37 Alkaline Phosphatase 83 units/L (35-129) 07/18/21 07:37 Ammonia 47.0 umol/L (25-60) 07/16/21 09:57 Total Creatine Kinase 176 units/L (55-170) H 07/16/21 09:57 Total Creatine Kinase 176 units/L (55-170) H 07/16/21 09:57 Total Protein 8.4 g/dL (6.3-8.2) H 07/18/21 07:37 Albumin 4.2 g/dL (3.9-5) 07/18/21 07:37 Albumin/Globulin Ratio 1.0 % 07/18/21 07:37 Urine Color Yellow (Yellow) 07/17/21 Unknown Urine Turbidity Clear (Clear) 07/17/21 Unknown Urine pH 7.0 (5.0-7.0) 07/17/21 Unknown Ur Specific Beatrice 1.012 (1.003-1.030) 07/17/21 Unknown Urine Protein 100 mg/dl mg/dL (Negative) 07/17/21 Unknown Urine Glucose (UA) 50 mg/dL (Negative) 07/17/21 Unknown Urine Ketones 20 mg/dL (Negative) 07/17/21 Unknown Urine Blood Sm (Negative) 07/17/21 Unknown Urine Nitrite Neg (Negative) 07/17/21 Unknown Urine Bilirubin Neg (Negative) 07/17/21 Unknown Urine Urobilinogen 2.0 mg/dL (<2.0) 07/17/21 Unknown Ur Leukocyte Esterase Lg (Negative) 07/17/21 Unknown Urine WBC (Auto) 108.0 /HPF (0.0-6.0) H 07/17/21 Unknown Urine RBC (Auto) 30.0 /HPF (0.0-6.0) 07/17/21 Unknown U Epithel Cells (Auto) 1.0 /HPF (0-13.0) 07/17/21 Unknown Urine Bacteria (Auto) 3+ /HPF (Negative) 07/17/21 Unknown Urine Mucus Few /HPF 07/17/21 Unknown Urine Yeast (Budding) 1+ /HPF 07/17/21 Unknown Urine Sperm 1+ /HPF (GOLF CART REPAIRER) 07/17/21 Unknown Salicylates < 0.3 mg/dL (2.8-20.0) L 07/16/21 09:57 Urine Opiates Screen Negative 07/17/21 Unknown Urine Methadone Screen Negative 07/17/21 Unknown Acetaminophen 5.0 ug/mL (10.0-30.0) L 07/16/21 09:57 Ur Barbiturates Screen Negative 07/17/21 Unknown Ur Phencyclidine Scrn Negative 07/17/21 Unknown Ur Amphetamines Screen Negative 07/17/21 Unknown U Benzodiazepines Scrn Positive 07/17/21 Unknown Urine Cocaine Screen Negative 07/17/21 Unknown U Marijuana (THC) Screen Negative 07/17/21 Unknown Drugs of Abuse Note Disclamer 07/17/21 Unknown Plasma/Serum Alcohol < 0.01 % (0-0.07) 07/16/21 09:57 [place]/IV: Voiding Method Incontinent Active Medications - Current Medications Current Medications: Generic Name Dose Route Start Last Admin Trade Name Freq PRN Reason Stop Dose Admin Acetaminophen 650 mg 07/16/21 17:44 Acetaminophen 325 Mg Tab PO Q4H PRN Pain MILD(1-3)/Fever >100.5/WRAY Albuterol 2.5 mg 07/16/21 17:44 Albuterol 2.5 Mg/3 Ml Nebu IH Q4HRT PRN Shortness Of Breath Atenolol 25 mg 07/19/21 19:00 07/20/21 09:04 Atenolol 25 Mg Tab PO 25 mg QDAY MAU Administration Chlordiazepoxide HCl 50 mg 07/16/21 10:02 07/16/21 10:26 Chlordiazepoxide 25 Mg Cap PO 50 mg Q1HR PRN Administration CIWA-Ar 8-15 Folic Acid 1 mg 07/17/21 10:00 07/20/21 09:04 Folic Acid 1 Mg Tab PO 1 mg QDAY MAU Administration Haloperidol Lactate 5 mg 07/19/21 13:37 07/19/21 15:41 Haloperidol Lactate 5 Mg/1 Ml Inj IM 5 mg Q6H PRN Administration Agitation Hydralazine HCl 10 mg 07/18/21 22:18 07/20/21 05:57 Hydralazine 20 Mg/1 Ml Inj IV 10 mg Q6H PRN Administration Hypertension Hydromorphone HCl 0.25 mg 07/16/21 17:44 Hydromorphone 1 Mg/1 Ml Inj IV Q23H PRN Pain, Moderate (4-6) Dextrose/Sodium Chloride 1,000 mls @ 75 mls/hr 07/18/21 13:00 07/20/21 06:03 D5/0.45ns IV 75 mls/hr DIRECT MAU Administration Levofloxacin/Dextrose 500 mg in 100 mls @ 100 mls/hr 07/18/21 16:00 07/19/21 15:41 Levaquin 500mg/100ml IV 100 mls/hr Q24H MAU Administration Protocol Magnesium Sulfate 4 gm in 100 mls @ 25 mls/hr 07/20/21 07:33 07/20/21 09:04 Magnesium Sulfate 4gm/100ml IV 07/20/21 11:32 25 mls/hr ONCE ONE Administration Lorazepam 2 mg 07/16/21 10:02 07/20/21 09:08 Lorazepam 2 Mg/Ml Vial IV 2 mg Q1HR PRN Administration CIWA-Ar 8-15 Lorazepam 4 mg 07/16/21 10:02 07/19/21 13:33 Lorazepam 2 Mg/Ml Vial IV 4 mg Q1HR PRN Administration CIWA-Ar 16-25 Lorazepam 4 mg 07/16/21 10:02 Lorazepam 2 Mg/Ml Vial IV Q15MIN PRN CIWA-Ar >25 Ondansetron HCl 4 mg 07/16/21 17:44 Ondansetron 4 Mg/2 Ml Inj IV Q8H PRN Nausea And Vomiting Oxycodone/Acetaminophen 1 tab 07/16/21 17:44 Oxycodone /Acetaminophen 5-325mg Tab PO Q16H PRN Pain, Moderate (4-6) Potassium Chloride 40 meq 07/20/21 08:00 07/20/21 07:46 Potassium Chloride Er 20 Meq Tab PO 07/20/21 20:01 40 meq Q6H MAU Administration Sodium Chloride 10 ml 07/16/21 22:00 07/20/21 05:59 Sodium Chloride 0.9% 10 Ml Flush Syringe IV 10 ml BID MAU Administration Sodium Chloride 10 ml 07/16/21 17:44 Sodium Chloride 0.9% 10 Ml Flush Syringe IV PRN PRN LINE FLUSH Nutrition/Malnutrition Assess - Dietary Evaluation Nutrition/Malnutrition Findings: Nutrition Notes Start: 07/17/21 12:11 Freq: Status: Active Protocol: Document 07/19/21 15:21 GEORGIE (Rec: 07/19/21 15:42 GEORGIE [id number]) Nutrition Notes Initial or Follow up Reassessment Other Pertinent Diagnosis Delirium T, Met Encephalopathy & Acidosis, Transaminitis, ETOH Withdrawal S Current Diet Pureed (since D 07/18). Labs/Tests 07/19: K 3.0, Crea 0.7, Glu 149, Phos 2.2. Pertinent Medications 07/19: D5/0.45ns 1,000 ml @ 75 ml/Hr, Folic ac, Phos-NaK, others nutritionally unremarkable. Height 5 ft 6 in Weight 76.3 kg [place] Body Weight (kg) 64.54 BMI 27.1 Weight change and time frame Slight body weight change, 811 g reported. Subjective/Other Information RD consult for routine F/U on diet advancement. No report available on %PO intake of meals at the time. Percent of energy/protein needs met: Prescribed Pureed Diet provides for energy/protein needs (1,804 Kcal/77 g) during LOS. Burn Absent Trauma Absent GI Symptoms None Difficulty In Chewing Food Allergy No Skin Integrity/Comment Clear, warm, dry. Minimum of two criteria No Is patient on ventilator? No Is Patient Ambulatory and/or Out of Bed Yes REE-([place] or-ambulatory/OOB) [ 2009.475 [id number]] Kcal/Kg value to use for calculation 30 Approximate Energy Requirements Using 2289 kcal/Kg Calculation Used for Recommendations Kcal/kg Additional Notes Protein: 1-1.2 g/Kg; 65-78 g/ day (from IBW + critical care) . Fluids: 1 ml/Kcal, or as per MD. Nutrition Intervention Change Diet Order: Continue Pureed Diet. Goal #1 Maintain body weight within +/ -3% of current BWt during LOS. Goal #2 Reach and maintain acceptable chemistry lab values during LOS. Follow-Up By: 07/26/21 Additional Comments Continue monitoring food tolerance, %PO intake of meals , Hydration, and BM.
[2021-07-20] MEDS: THIAMINE 100 MG in SODIUM CHLORIDE 0.9% 50 ML IV SCH (10:48)
[2021-07-20] MEDS ORDERED: POTASSIUM CHLORIDE ER 20 MEQ TAB PO SCH (23:45)
[2021-07-21] MEDS: LORazepam 2 MG/ML VIAL IV PRN ×3 (05:01→23:57)
[2021-07-21 05:44] LABS: BUN/Creatinine Ratio 13; Blood Urea Nitrogen 10 mg/dL (9-20); Calcium 8.9 mg/dL (8.4-10.2); Hemolysis Index 7
[2021-07-21] MEDS: hydrALAZINE 20 MG/1 ML INJ IV PRN (06:22)
[2021-07-21] MEDS: FOLIC ACID 1 MG TAB PO SCH (09:34)
[2021-07-21] MEDS: THIAMINE 100 MG in SODIUM CHLORIDE 0.9% 50 ML IV SCH (09:34)
[2021-07-21] MEDS: atenoloL 25 MG TAB PO SCH (09:34)
--- NOTE | 2021-07-21 10:13 | Progress Note ---
Assessment and Plan Assessment and plan: (1) Delirium tremens Current Visit: Yes Status: Acute Plan to address problem: Alcohol withdrawal protocol: CIWA protocol, IV fluid resuscitation therapy, banana bag, thiamine, folic acid, multivitamin, magnesium repletion, phosphorus repletion, neuro check, seizure precautions, aspiration precautions (2) Metabolic encephalopathy Current Visit: Yes Status: Acute Plan to address problem: CTA, neuro check, seizure cautions, aspiration precautions, supportive care. (3) Metabolic acidosis Current Visit: Yes Status: Acute Plan to address problem: BMP, IV fluid resuscitation therapy, repeat BMP in a.m. (4) Transaminitis Current Visit: Yes Status: Acute Hypokalemia Hypomagnesemia Hypophosphatemia (5) DVT prophylaxis Current Visit: Yes Status: Acute Plan to address problem: SCDs bilateral lower extremities while in bed (6) Advance care planning Current Visit: Yes Status: Acute Plan to address problem: Disease education conducted, care plan discussed, diagnoses discussed, prognosis discussed, +30 minutes. 07/18/21 Patient with alcohol withdrawal syndrome, delirium tremens. He is agitated. Nurse supervisor drying and winding recommend radiation safety officer at bedside. Labs show low Mg, low Potassium. Replace and recheck in am. 07/19/21 Patient with alcohol withdrawal syndrome, delirium tremens. He is still agitated, confused. Labs show hypokalemia, hypophosphatemia. Mg is borderline normal. Will replace Potassium, Phos and Mg and recheck at 4pm today. 07/20/21 Patient with alcohol withdrawal syndrome, delirium tremens. He is still agitated, confused. Replace Potassium, magnesium and recheck labs in am 07/21/21 Patient with alcohol withdrawal syndrome,delirium tremens and multiple electrolyte disturbances . He is still agitated,confused. has received multiple doses of iv Potassium, Magnesium, Phos. Will give more Potassium to keep>4. Also give more Mg to keep >2. Repeat labs in am History Interval history: Patient with delirium tremens Still agitated,confused Hospitalist Physical - Physical exam Narrative exam: Gen: Not in acute distress, lying in bed, HEENT: Normocephalic, atraumatic Neck: supple, no JVD Lungs: Clear to auscultation, no rales, no wheeze Heart:S1 and S2 reg, tachycardia, no gallop Abd: soft, non-tender,non-distended, normal bowel sounds Ext: No edema, no clubbing, no cyanosis Neuro: Awake, agitated, confused,tremors - Constitutional Vitals: Temp Pulse Resp BP Pulse Ox 99.1 F 85 18 122/76 98 07/21/21 04:56 07/21/21 08:11 07/21/21 06:19 07/21/21 08:11 07/21/21 08:35 Results - Labs CBC & Chem 7: 07/20/21 04:13 07/21/21 04:20 Labs: Laboratory Last Values WBC 5.1 K/mm3 (4.5-11.0) 07/20/21 04:13 RBC 4.10 M/mm3 (3.65-5.03) 07/20/21 04:13 Hgb 12.9 gm/dl (11.8-15.2) 07/20/21 04:13 Hct 39.6 % (35.5-45.6) 07/20/21 04:13 MCV 97 fl (84-94) H 07/20/21 04:13 MCH 32 pg (28-32) 07/20/21 04:13 MCHC 33 % (32-34) 07/20/21 04:13 RDW 13.3 % (13.2-15.2) 07/20/21 04:13 Plt Count 104 K/mm3 (140-440) L 07/20/21 04:13 Add Manual Diff Complete 07/16/21 10:57 Total Counted 100 07/16/21 10:57 Seg Neutrophils % Curriculum Development Specialist 07/16/21 10:57 Seg Neuts % (Manual) 89.0 % (40.0-70.0) H 07/16/21 10:57 Band Neutrophils % 2.0 % 07/16/21 10:57 Lymphocytes % (Manual) 6.0 % (13.4-35.0) L 07/16/21 10:57 Monocytes % (Manual) 2.0 % (0.0-7.3) 07/16/21 10:57 Basophils % (Manual) 1.0 % (0.0-1.8) 07/16/21 10:57 Nucleated RBC % Not Reportable 07/16/21 10:57 Seg Neutrophils # Man 6.9 K/mm3 (1.8-7.7) 07/16/21 10:57 Band Neutrophils # 0.2 K/mm3 07/16/21 10:57 Lymphocytes # (Manual) 0.5 K/mm3 (1.2-5.4) L 07/16/21 10:57 Abs React Lymphs (Man) 0.0 K/mm3 07/16/21 10:57 Monocytes # (Manual) 0.2 K/mm3 (0.0-0.8) 07/16/21 10:57 Eosinophils # (Manual) 0.0 K/mm3 (0.0-0.4) 07/16/21 10:57 Basophils # (Manual) 0.1 K/mm3 (0.0-0.1) 07/16/21 10:57 Metamyelocytes # 0.0 K/mm3 07/16/21 10:57 Myelocytes # 0.0 K/mm3 07/16/21 10:57 Promyelocytes # 0.0 K/mm3 07/16/21 10:57 Blast Cells # 0.0 K/mm3 07/16/21 10:57 WBC Morphology Not Reportable 07/16/21 10:57 Hypersegmented Neuts Not Reportable 07/16/21 10:57 Hyposegmented Neuts Not Reportable 07/16/21 10:57 Hypogranular Neuts Not Reportable 07/16/21 10:57 Smudge Cells Not Reportable 07/16/21 10:57 Toxic Granulation Not Reportable 07/16/21 10:57 Toxic Vacuolation Not Reportable 07/16/21 10:57 Dohle Bodies Not Reportable 07/16/21 10:57 Pelger-Huet Anomaly Not Reportable 07/16/21 10:57 Lanette Rods Not Reportable 07/16/21 10:57 Platelet Estimate Consistent w auto 07/16/21 10:57 Clumped Platelets Not Reportable 07/16/21 10:57 Plt Clumps, EDTA Not Reportable 07/16/21 10:57 Large Platelets Not Reportable 07/16/21 10:57 Giant Platelets Not Reportable 07/16/21 10:57 Platelet Satelliting Not Reportable 07/16/21 10:57 Plt Morphology Comment Not Reportable 07/16/21 10:57 RBC Morphology Not Reportable 07/16/21 10:57 Dimorphic RBCs Not Reportable 07/16/21 10:57 Polychromasia Not Reportable 07/16/21 10:57 Hypochromasia Not Reportable 07/16/21 10:57 Poikilocytosis Not Reportable 07/16/21 10:57 Anisocytosis Not Reportable 07/16/21 10:57 Microcytosis Not Reportable 07/16/21 10:57 Macrocytosis Not Reportable 07/16/21 10:57 Spherocytes Not Reportable 07/16/21 10:57 Pappenheimer Bodies Not Reportable 07/16/21 10:57 Sickle Cells Not Reportable 07/16/21 10:57 Target Cells Not Reportable 07/16/21 10:57 Tear Drop Cells Not Reportable 07/16/21 10:57 Ovalocytes Not Reportable 07/16/21 10:57 Helmet Cells Not Reportable 07/16/21 10:57 [place] Bodies Not Reportable 07/16/21 10:57 [place] Rings Not Reportable 07/16/21 10:57 [place] Cells Not Reportable 07/16/21 10:57 Bite Cells Not Reportable 07/16/21 10:57 Crenated Cell Not Reportable 07/16/21 10:57 Elliptocytes Not Reportable 07/16/21 10:57 Acanthocytes (Spur) Not Reportable 07/16/21 10:57 Rouleaux Not Reportable 07/16/21 10:57 Hemoglobin C Crystals Not Reportable 07/16/21 10:57 Schistocytes Not Reportable 07/16/21 10:57 Malaria parasites Not Reportable 07/16/21 10:57 Tay Bodies Not Reportable 07/16/21 10:57 Hem Pathologist Commnt No 07/16/21 10:57 PT 13.6 Sec. (12.2-14.9) 07/16/21 09:57 INR 0.94 (0.87-1.13) 07/16/21 09:57 APTT 26.1 Sec. (24.2-36.6) 07/16/21 09:57 Sodium 142 mmol/L (137-145) 07/21/21 04:20 Potassium 3.8 mmol/L (3.6-5.0) 07/21/21 04:20 Chloride 107.6 mmol/L (98-107) H 07/21/21 04:20 Carbon Dioxide 20 mmol/L (22-30) L 07/21/21 04:20 Anion Gap 18 mmol/L 07/21/21 04:20 BUN 10 mg/dL (9-20) 07/21/21 04:20 Creatinine 0.8 mg/dL (0.8-1.3) 07/21/21 04:20 Estimated GFR > 60 ml/min 07/21/21 04:20 BUN/Creatinine Ratio 13 % 07/21/21 04:20 Glucose 173 mg/dL (75-100) H 07/21/21 04:20 POC Glucose 215 mg/dL (70-105) H 07/20/21 16:19 Calcium 8.9 mg/dL (8.4-10.2) 07/21/21 04:20 Phosphorus 2.60 mg/dL (2.5-4.5) D 07/21/21 04:20 Magnesium 1.80 mg/dL (1.7-2.3) 07/21/21 04:20 Total Bilirubin 0.70 mg/dL (0.1-1.2) 07/18/21 07:37 AST 65 units/L (5-40) H 07/18/21 07:37 ALT 69 units/L (7-56) H 07/18/21 07:37 Alkaline Phosphatase 83 units/L (35-129) 07/18/21 07:37 Ammonia 47.0 umol/L (25-60) 07/16/21 09:57 Total Creatine Kinase 176 units/L (55-170) H 07/16/21 09:57 Total Creatine Kinase 176 units/L (55-170) H 07/16/21 09:57 Total Protein 8.4 g/dL (6.3-8.2) H 07/18/21 07:37 Albumin 4.2 g/dL (3.9-5) 07/18/21 07:37 Albumin/Globulin Ratio 1.0 % 07/18/21 07:37 Urine Color Yellow (Yellow) 07/17/21 Unknown Urine Turbidity Clear (Clear) 07/17/21 Unknown Urine pH 7.0 (5.0-7.0) 07/17/21 Unknown Ur Specific [place] 1.012 (1.003-1.030) 07/17/21 Unknown Urine Protein 100 mg/dl mg/dL (Negative) 07/17/21 Unknown Urine Glucose (UA) 50 mg/dL (Negative) 07/17/21 Unknown Urine Ketones 20 mg/dL (Negative) 07/17/21 Unknown Urine Blood Sm (Negative) 07/17/21 Unknown Urine Nitrite Neg (Negative) 07/17/21 Unknown Urine Bilirubin Neg (Negative) 07/17/21 Unknown Urine Urobilinogen 2.0 mg/dL (<2.0) 07/17/21 Unknown Ur Leukocyte Esterase Lg (Negative) 07/17/21 Unknown Urine WBC (Auto) 108.0 /HPF (0.0-6.0) H 07/17/21 Unknown Urine RBC (Auto) 30.0 /HPF (0.0-6.0) 07/17/21 Unknown U Epithel Cells (Auto) 1.0 /HPF (0-13.0) 07/17/21 Unknown Urine Bacteria (Auto) 3+ /HPF (Negative) 07/17/21 Unknown Urine Mucus Few /HPF 07/17/21 Unknown Urine Yeast (Budding) 1+ /HPF 07/17/21 Unknown Urine Sperm 1+ /HPF (SWING FRAME GRINDER OPERATOR) 07/17/21 Unknown Salicylates < 0.3 mg/dL (2.8-20.0) L 07/16/21 09:57 Urine Opiates Screen Negative 07/17/21 Unknown Urine Methadone Screen Negative 07/17/21 Unknown Acetaminophen 5.0 ug/mL (10.0-30.0) L 07/16/21 09:57 Ur Barbiturates Screen Negative 07/17/21 Unknown Ur Phencyclidine Scrn Negative 07/17/21 Unknown Ur Amphetamines Screen Negative 07/17/21 Unknown U Benzodiazepines Scrn Positive 07/17/21 Unknown Urine Cocaine Screen Negative 07/17/21 Unknown U Marijuana (THC) Screen Negative 07/17/21 Unknown Drugs of Abuse Note Disclamer 07/17/21 Unknown Plasma/Serum Alcohol < 0.01 % (0-0.07) 07/16/21 09:57 [place]/IV: Voiding Method Incontinent Active Medications - Current Medications Current Medications: Generic Name Dose Route Start Last Admin Trade Name Freq PRN Reason Stop Dose Admin Acetaminophen 650 mg 07/16/21 17:44 Acetaminophen 325 Mg Tab PO Q4H PRN Pain MILD(1-3)/Fever >100.5/WRAY Albuterol 2.5 mg 07/16/21 17:44 Albuterol 2.5 Mg/3 Ml Nebu IH Q4HRT PRN Shortness Of Breath Atenolol 25 mg 07/19/21 19:00 07/21/21 09:34 Atenolol 25 Mg Tab PO 25 mg QDAY MAU Administration Chlordiazepoxide HCl 50 mg 07/16/21 10:02 07/16/21 10:26 Chlordiazepoxide 25 Mg Cap PO 50 mg Q1HR PRN Administration CIWA-Ar 8-15 Folic Acid 1 mg 07/17/21 10:00 07/21/21 09:34 Folic Acid 1 Mg Tab PO 1 mg QDAY MAU Administration Haloperidol Lactate 5 mg 07/19/21 13:37 07/19/21 15:41 Haloperidol Lactate 5 Mg/1 Ml Inj IM 5 mg Q6H PRN Administration Agitation Hydralazine HCl 10 mg 07/18/21 22:18 07/21/21 06:22 Hydralazine 20 Mg/1 Ml Inj IV 10 mg Q6H PRN Administration Hypertension Hydromorphone HCl 0.25 mg 07/16/21 17:44 Hydromorphone 1 Mg/1 Ml Inj IV Q23H PRN Pain, Moderate (4-6) Dextrose/Sodium Chloride 1,000 mls @ 75 mls/hr 07/18/21 13:00 07/20/21 06:03 D5/0.45ns IV 75 mls/hr DIRECT MAU Administration Levofloxacin/Dextrose 500 mg in 100 mls @ 100 mls/hr 07/18/21 16:00 07/20/21 15:32 Levaquin 500mg/100ml IV 100 mls/hr Q24H MAU Administration Protocol Thiamine HCl 100 mg/ Sodium 51 mls @ 100 mls/hr 07/20/21 10:00 07/21/21 09:34 Chloride IV 100 mls/hr QDAY MAU Administration Magnesium Sulfate 4 gm in 100 mls @ 25 mls/hr 07/21/21 10:10 Magnesium Sulfate 4gm/100ml IV 07/21/21 14:09 ONCE ONE Lorazepam 2 mg 07/16/21 10:02 07/21/21 05:01 Lorazepam 2 Mg/Ml Vial IV 2 mg Q1HR PRN Administration CIWA-Ar 8-15 Lorazepam 4 mg 07/16/21 10:02 07/19/21 13:33 Lorazepam 2 Mg/Ml Vial IV 4 mg Q1HR PRN Administration CIWA-Ar 16-25 Lorazepam 4 mg 07/16/21 10:02 Lorazepam 2 Mg/Ml Vial IV Q15MIN PRN CIWA-Ar >25 Ondansetron HCl 4 mg 07/16/21 17:44 Ondansetron 4 Mg/2 Ml Inj IV Q8H PRN Nausea And Vomiting Oxycodone/Acetaminophen 1 tab 07/16/21 17:44 Oxycodone /Acetaminophen 5-325mg Tab PO Q16H PRN Pain, Moderate (4-6) Potassium Chloride 40 meq 07/21/21 11:00 Potassium Chloride Er 20 Meq Tab PO 07/21/21 19:01 Q8H MAU Potassium Chloride 40 meq 07/22/21 10:00 Potassium Chloride Er 20 Meq Tab PO 07/27/21 09:59 QDAY MAU Sodium Chloride 10 ml 07/16/21 22:00 07/20/21 23:24 Sodium Chloride 0.9% 10 Ml Flush Syringe IV 10 ml BID MAU Administration Sodium Chloride 10 ml 07/16/21 17:44 07/21/21 05:01 Sodium Chloride 0.9% 10 Ml Flush Syringe IV 10 ml PRN PRN Administration LINE FLUSH Nutrition/Malnutrition Assess - Dietary Evaluation Nutrition/Malnutrition Findings: Nutrition Notes Start: 07/17/21 12:11 Freq: Status: Active Protocol: Document 07/19/21 15:21 GEORGIE (Rec: 07/19/21 15:42 GEORGIE [id number]) Nutrition Notes Initial or Follow up Reassessment Other Pertinent Diagnosis Delirium T, Met Encephalopathy & Acidosis, Transaminitis, ETOH Withdrawal S Current Diet Pureed (since D 07/18). Labs/Tests 07/19: K 3.0, Crea 0.7, Glu 149, Phos 2.2. Pertinent Medications 07/19: D5/0.45ns 1,000 ml @ 75 ml/Hr, Folic ac, Phos-NaK, others nutritionally unremarkable. Height 5 ft 6 in Weight 76.3 kg [place] Body Weight (kg) 64.54 BMI 27.1 Weight change and time frame Slight body weight change, 811 g reported. Subjective/Other Information RD consult for routine F/U on diet advancement. No report available on %PO intake of meals at the time. Percent of energy/protein needs met: Prescribed Pureed Diet provides for energy/protein needs (1,804 Kcal/77 g) during LOS. Burn Absent Trauma Absent GI Symptoms None Difficulty In Chewing Food Allergy No Skin Integrity/Comment Clear, warm, dry. Minimum of two criteria No Is patient on ventilator? No Is Patient Ambulatory and/or Out of Bed Yes REE-([facility]-ambulatory/OOB) [ 2009.475 [id number]] Kcal/Kg value to use for calculation 30 Approximate Energy Requirements Using 2289 kcal/Kg Calculation Used for Recommendations Kcal/kg Additional Notes Protein: 1-1.2 g/Kg; 65-78 g/ day (from IBW + critical care) . Fluids: 1 ml/Kcal, or as per MD. Nutrition Intervention Change Diet Order: Continue Pureed Diet. Goal #1 Maintain body weight within +/ -3% of current BWt during LOS. Goal #2 Reach and maintain acceptable chemistry lab values during LOS. Follow-Up By: 07/26/21 Additional Comments Continue monitoring food tolerance, %PO intake of meals , Hydration, and BM.
[2021-07-21] MEDS ORDERED: MAGNESIUM SULFATE 4 GM/100 ML BAG IV ONE (11:00)
[2021-07-21] MEDS ORDERED: SODIUM PHOSPHATE 30 MMOL in SODIUM CHLORIDE 0.9% 500 ML 500 ML IV ONE (11:00)
[2021-07-21] MEDS: POTASSIUM CHLORIDE ER 20 MEQ TAB PO SCH ×2 (12:47→18:15)
[2021-07-21] MEDS ORDERED: SODIUM CHLORIDE 0.9% 250ML 250 ML ONE (13:25)
[2021-07-21] MEDS: chlordiazePOXIDE 25 MG CAP PO PRN (20:44)
[2021-07-21] MEDS: HALOPERIDOL LACTATE 5 MG/1 ML INJ IM PRN (20:44)
[2021-07-22 05:17] LABS: Hematocrit 39.8 % (35.5-45.6); Hemoglobin 13.1 gm/dl (11.8-15.2); Mean Corpuscular HGB Conc 33 % (32-34); Mean Corpuscular Volume 96 fl (84-94); Platelet Count 126 K/mm3 (140-440); Red Blood Count 4.16 M/mm3 (3.65-5.03); Red Cell Distribution Width 13.2 % (13.2-15.2)
[2021-07-22] MEDS: LORazepam 2 MG/ML VIAL IV PRN ×4 (05:17→20:56)
[2021-07-22] MEDS: hydrALAZINE 20 MG/1 ML INJ IV PRN (05:27)
[2021-07-22 05:33] LABS: BUN/Creatinine Ratio 9; Blood Urea Nitrogen 7 mg/dL (9-20); Calcium 9.5 mg/dL (8.4-10.2); Hemolysis Index 4
[2021-07-22] MEDS ORDERED: POTASSIUM PHOSPHATE 30 MMOL in SODIUM CHLORIDE 0.9% 500 ML 500 ML IV ONE (09:00)
[2021-07-22] MEDS: FOLIC ACID 1 MG TAB PO SCH (10:21)
[2021-07-22] MEDS: POTASSIUM CHLORIDE ER 20 MEQ TAB PO SCH (10:21)
[2021-07-22] MEDS: atenoloL 50 MG TAB PO SCH (10:24)
[2021-07-22] MEDS: THIAMINE 100 MG in SODIUM CHLORIDE 0.9% 50 ML IV SCH (16:29)
[2021-07-22] MEDS: D5W/0.45% NACL 1,000 ML IV SCH (16:35)
--- NOTE | 2021-07-22 17:49 | Progress Note ---
Assessment and Plan Assessment and plan: 55 YO Male with ETOH Dependence presents to ED for evaluation. Patient is stuporous with diminished cognition and history provided by EMS staff, ED staff, as well as information gained from aislinn Winston. As per staff EMS was notified by aislinn Winston when patient was found to be confused and approached a neighbor for assistance. Patient found to be tremulous, with confabulations, nausea, and have clinical symptoms consistent with delirium tremens, metabolic acidosis, metabolic encephalopathy, as well as chronic liver disease complicated by elevated liver function test. Patient admitted to medical floor and initiated on CIWA protocol and treated with supportive care. Assessment and plan: (1) Delirium tremens Current Visit: Yes Status: Acute Plan to address problem: Alcohol withdrawal protocol: CIWA protocol, IV fluid resuscitation therapy, banana bag, thiamine, folic acid, multivitamin, magnesium repletion, phosphorus repletion, neuro check, seizure precautions, aspiration precautions (2) Metabolic encephalopathy Current Visit: Yes Status: Acute Plan to address problem: CTA, neuro check, seizure cautions, aspiration precautions, supportive care. (3) Metabolic acidosis Current Visit: Yes Status: Acute Plan to address problem: BMP, IV fluid resuscitation therapy, repeat BMP in a.m. (4) Transaminitis Current Visit: Yes Status: Acute Hypokalemia on daily potassium supplementation, 40 mg daily Hypomagnesemia Hypophosphatemia (5) DVT prophylaxis Current Visit: Yes Status: Acute Plan to address problem: SCDs bilateral lower extremities while in bed (6) Advance care planning Current Visit: Yes Status: Acute Plan to address problem: Disease education conducted, care plan discussed, diagnoses discussed, prognosis discussed, +30 minutes. 07/18/21 Patient with alcohol withdrawal syndrome, delirium tremens. He is agitated. Nurse proof machine operator supervisor recommend safety associate at bedside. Labs show low Mg, low Potassium. Replace and recheck in am. 07/19/21 Patient with alcohol withdrawal syndrome, delirium tremens. He is still agitated, confused. Labs show hypokalemia, hypophosphatemia. Mg is borderline normal. Will replace Potassium, Phos and Mg and recheck at 4pm today. 07/20/21 Patient with alcohol withdrawal syndrome, delirium tremens. He is still agitated, confused. Replace Potassium, magnesium and recheck labs in am 07/21/21 Patient with alcohol withdrawal syndrome,delirium tremens and multiple electrolyte disturbances . He is still agitated,confused. has received multiple doses of iv Potassium, Magnesium, Phos. 07/14/2021: Sleepy, arousable, verbal but confused. Afebrile, heart rate 105, BP 170/90. Wrist restraints in place. Remains on CIOK protocol. Electrolytes improving. Will obtain B12 and folic acid levels. Will give more Potassium to keep>4. Also give more Mg to keep >2. Repeat labs in am History Interval history: Sleepy, arousable, verbal but confused. Afebrile, heart rate 105, BP 170/90. Wrist restraints in place. Remains on CIWA protocol. Hospitalist Physical - Constitutional Vitals: Temp Pulse Resp BP Pulse Ox 97.7 F 80 19 160/97 98 07/22/21 17:13 07/22/21 17:13 07/22/21 17:13 07/22/21 17:13 07/22/21 17:13 General appearance: Present: no acute distress, other (, Sleepy, verbal, confused, wrist restraints in place) - EENT Eyes: Present: PERRL, EOM intact ENT: clear oral mucosa - Neck Neck: Present: supple - Respiratory Respiratory effort: normal Respiratory: bilateral: CTA, diminished - Cardiovascular Rhythm: other (Sinus tachycardia) - Extremities Extremities: No edema (Upper extremity tremors noted.) - Abdominal General gastrointestinal: soft, non-tender, non-distended - Integumentary Integumentary: Absent: rash - Psychiatric Psychiatric: other (Confused, wrist restraints in place) - Neurologic Neurologic: other (Sleepy, arousable, verbal, confused) Results - Labs CBC & Chem 7: 07/22/21 04:28 07/22/21 04:28 Labs: Laboratory Last Values WBC 6.2 K/mm3 (4.5-11.0) 07/22/21 04:28 RBC 4.16 M/mm3 (3.65-5.03) 07/22/21 04:28 Hgb 13.1 gm/dl (11.8-15.2) 07/22/21 04:28 Hct 39.8 % (35.5-45.6) 07/22/21 04:28 MCV 96 fl (84-94) H 07/22/21 04:28 MCH 32 pg (28-32) 07/22/21 04:28 MCHC 33 % (32-34) 07/22/21 04:28 RDW 13.2 % (13.2-15.2) 07/22/21 04:28 Plt Count 126 K/mm3 (140-440) L 07/22/21 04:28 Add Manual Diff Complete 07/16/21 10:57 Total Counted 100 07/16/21 10:57 Seg Neutrophils % Film Spooler 07/16/21 10:57 Seg Neuts % (Manual) 89.0 % (40.0-70.0) H 07/16/21 10:57 Band Neutrophils % 2.0 % 07/16/21 10:57 Lymphocytes % (Manual) 6.0 % (13.4-35.0) L 07/16/21 10:57 Monocytes % (Manual) 2.0 % (0.0-7.3) 07/16/21 10:57 Basophils % (Manual) 1.0 % (0.0-1.8) 07/16/21 10:57 Nucleated RBC % Not Reportable 07/16/21 10:57 Seg Neutrophils # Man 6.9 K/mm3 (1.8-7.7) 07/16/21 10:57 Band Neutrophils # 0.2 K/mm3 07/16/21 10:57 Lymphocytes # (Manual) 0.5 K/mm3 (1.2-5.4) L 07/16/21 10:57 Abs React Lymphs (Man) 0.0 K/mm3 07/16/21 10:57 Monocytes # (Manual) 0.2 K/mm3 (0.0-0.8) 07/16/21 10:57 Eosinophils # (Manual) 0.0 K/mm3 (0.0-0.4) 07/16/21 10:57 Basophils # (Manual) 0.1 K/mm3 (0.0-0.1) 07/16/21 10:57 Metamyelocytes # 0.0 K/mm3 07/16/21 10:57 Myelocytes # 0.0 K/mm3 07/16/21 10:57 Promyelocytes # 0.0 K/mm3 07/16/21 10:57 Blast Cells # 0.0 K/mm3 07/16/21 10:57 WBC Morphology Not Reportable 07/16/21 10:57 Hypersegmented Neuts Not Reportable 07/16/21 10:57 Hyposegmented Neuts Not Reportable 07/16/21 10:57 Hypogranular Neuts Not Reportable 07/16/21 10:57 Smudge Cells Not Reportable 07/16/21 10:57 Toxic Granulation Not Reportable 07/16/21 10:57 Toxic Vacuolation Not Reportable 07/16/21 10:57 Dohle Bodies Not Reportable 07/16/21 10:57 Pelger-Huet Anomaly Not Reportable 07/16/21 10:57 Lanette Rods Not Reportable 07/16/21 10:57 Platelet Estimate Consistent w auto 07/16/21 10:57 Clumped Platelets Not Reportable 07/16/21 10:57 Plt Clumps, EDTA Not Reportable 07/16/21 10:57 Large Platelets Not Reportable 07/16/21 10:57 Giant Platelets Not Reportable 07/16/21 10:57 Platelet Satelliting Not Reportable 07/16/21 10:57 Plt Morphology Comment Not Reportable 07/16/21 10:57 RBC Morphology Not Reportable 07/16/21 10:57 Dimorphic RBCs Not Reportable 07/16/21 10:57 Polychromasia Not Reportable 07/16/21 10:57 Hypochromasia Not Reportable 07/16/21 10:57 Poikilocytosis Not Reportable 07/16/21 10:57 Anisocytosis Not Reportable 07/16/21 10:57 Microcytosis Not Reportable 07/16/21 10:57 Macrocytosis Not Reportable 07/16/21 10:57 Spherocytes Not Reportable 07/16/21 10:57 Pappenheimer Bodies Not Reportable 07/16/21 10:57 Sickle Cells Not Reportable 07/16/21 10:57 Target Cells Not Reportable 07/16/21 10:57 Tear Drop Cells Not Reportable 07/16/21 10:57 Ovalocytes Not Reportable 07/16/21 10:57 Helmet Cells Not Reportable 07/16/21 10:57 [place] Bodies Not Reportable 07/16/21 10:57 [place] Rings Not Reportable 07/16/21 10:57 [place] Cells Not Reportable 07/16/21 10:57 Bite Cells Not Reportable 07/16/21 10:57 Crenated Cell Not Reportable 07/16/21 10:57 Elliptocytes Not Reportable 07/16/21 10:57 Acanthocytes (Spur) Not Reportable 07/16/21 10:57 Rouleaux Not Reportable 07/16/21 10:57 Hemoglobin C Crystals Not Reportable 07/16/21 10:57 Schistocytes Not Reportable 07/16/21 10:57 Malaria parasites Not Reportable 07/16/21 10:57 Tay Bodies Not Reportable 07/16/21 10:57 Hem Pathologist Commnt No 07/16/21 10:57 PT 13.6 Sec. (12.2-14.9) 07/16/21 09:57 INR 0.94 (0.87-1.13) 07/16/21 09:57 APTT 26.1 Sec. (24.2-36.6) 07/16/21 09:57 Sodium 143 mmol/L (137-145) 07/22/21 04:28 Potassium 3.6 mmol/L (3.6-5.0) 07/22/21 04:28 Chloride 106.6 mmol/L (98-107) 07/22/21 04:28 Carbon Dioxide 22 mmol/L (22-30) 07/22/21 04:28 Anion Gap 18 mmol/L 07/22/21 04:28 BUN 7 mg/dL (9-20) L 07/22/21 04:28 Creatinine 0.8 mg/dL (0.8-1.3) 07/22/21 04:28 Estimated GFR > 60 ml/min 07/22/21 04:28 BUN/Creatinine Ratio 9 % 07/22/21 04:28 Glucose 135 mg/dL (75-100) H 07/22/21 04:28 POC Glucose 157 mg/dL (70-105) H 07/22/21 17:13 Calcium 9.5 mg/dL (8.4-10.2) 07/22/21 04:28 Phosphorus 2.40 mg/dL (2.5-4.5) L 07/22/21 04:28 Magnesium 1.70 mg/dL (1.7-2.3) 07/22/21 04:28 Total Bilirubin 0.70 mg/dL (0.1-1.2) 07/18/21 07:37 AST 65 units/L (5-40) H 07/18/21 07:37 ALT 69 units/L (7-56) H 07/18/21 07:37 Alkaline Phosphatase 83 units/L (35-129) 07/18/21 07:37 Ammonia 47.0 umol/L (25-60) 07/16/21 09:57 Total Creatine Kinase 176 units/L (55-170) H 07/16/21 09:57 Total Creatine Kinase 176 units/L (55-170) H 07/16/21 09:57 Total Protein 8.4 g/dL (6.3-8.2) H 07/18/21 07:37 Albumin 4.2 g/dL (3.9-5) 07/18/21 07:37 Albumin/Globulin Ratio 1.0 % 07/18/21 07:37 Urine Color Yellow (Yellow) 07/17/21 Unknown Urine Turbidity Clear (Clear) 07/17/21 Unknown Urine pH 7.0 (5.0-7.0) 07/17/21 Unknown Ur Specific [place] 1.012 (1.003-1.030) 07/17/21 Unknown Urine Protein 100 mg/dl mg/dL (Negative) 07/17/21 Unknown Urine Glucose (UA) 50 mg/dL (Negative) 07/17/21 Unknown Urine Ketones 20 mg/dL (Negative) 07/17/21 Unknown Urine Blood Sm (Negative) 07/17/21 Unknown Urine Nitrite Neg (Negative) 07/17/21 Unknown Urine Bilirubin Neg (Negative) 07/17/21 Unknown Urine Urobilinogen 2.0 mg/dL (<2.0) 07/17/21 Unknown Ur Leukocyte Esterase Lg (Negative) 07/17/21 Unknown Urine WBC (Auto) 108.0 /HPF (0.0-6.0) H 07/17/21 Unknown Urine RBC (Auto) 30.0 /HPF (0.0-6.0) 07/17/21 Unknown U Epithel Cells (Auto) 1.0 /HPF (0-13.0) 07/17/21 Unknown Urine Bacteria (Auto) 3+ /HPF (Negative) 07/17/21 Unknown Urine Mucus Few /HPF 07/17/21 Unknown Urine Yeast (Budding) 1+ /HPF 07/17/21 Unknown Urine Sperm 1+ /HPF (GOVERNMENT AFFAIRS DIRECTOR) 07/17/21 Unknown Salicylates < 0.3 mg/dL (2.8-20.0) L 07/16/21 09:57 Urine Opiates Screen Negative 07/17/21 Unknown Urine Methadone Screen Negative 07/17/21 Unknown Acetaminophen 5.0 ug/mL (10.0-30.0) L 07/16/21 09:57 Ur Barbiturates Screen Negative 07/17/21 Unknown Ur Phencyclidine Scrn Negative 07/17/21 Unknown Ur Amphetamines Screen Negative 07/17/21 Unknown U Benzodiazepines Scrn Positive 07/17/21 Unknown Urine Cocaine Screen Negative 07/17/21 Unknown U Marijuana (THC) Screen Negative 07/17/21 Unknown Drugs of Abuse Note Disclamer 07/17/21 Unknown Plasma/Serum Alcohol < 0.01 % (0-0.07) 07/16/21 09:57 Microbiology: Microbiology 07/18/21 10:47 Urine,Clean Catch Urine Culture - Final NO GROWTH AFTER 48 HOURS [place]/IV: Voiding Method Incontinent Active Medications - Current Medications Current Medications: Generic Name Dose Route Start Last Admin Trade Name Freq PRN Reason Stop Dose Admin Acetaminophen 650 mg 07/16/21 17:44 Acetaminophen 325 Mg Tab PO Q4H PRN Pain MILD(1-3)/Fever >100.5/WRAY Albuterol 2.5 mg 07/16/21 17:44 Albuterol 2.5 Mg/3 Ml Nebu IH Q4HRT PRN Shortness Of Breath Atenolol 50 mg 07/22/21 10:00 07/22/21 10:24 Atenolol 50 Mg Tab PO 50 mg QDAY MAU Administration Chlordiazepoxide HCl 50 mg 07/16/21 10:02 07/21/21 20:44 Chlordiazepoxide 25 Mg Cap PO 50 mg Q1HR PRN Administration CIWA-Ar 8-15 Folic Acid 1 mg 07/17/21 10:00 07/22/21 10:21 Folic Acid 1 Mg Tab PO 1 mg QDAY MAU Administration Haloperidol Lactate 5 mg 07/19/21 13:37 07/21/21 20:44 Haloperidol Lactate 5 Mg/1 Ml Inj IM 5 mg Q6H PRN Administration Agitation Hydralazine HCl 10 mg 07/18/21 22:18 07/22/21 05:27 Hydralazine 20 Mg/1 Ml Inj IV 10 mg Q6H PRN Administration Hypertension Dextrose/Sodium Chloride 1,000 mls @ 75 mls/hr 07/18/21 13:00 07/22/21 16:35 D5/0.45ns IV 75 mls/hr DIRECT MAU Administration Thiamine HCl 100 mg/ Sodium 51 mls @ 100 mls/hr 07/20/21 10:00 07/22/21 16:29 Chloride IV 100 mls/hr QDAY MAU Administration Lorazepam 2 mg 07/16/21 10:02 07/22/21 08:41 Lorazepam 2 Mg/Ml Vial IV 2 mg Q1HR PRN Administration CIWA-Ar 8-15 Lorazepam 4 mg 07/16/21 10:02 07/22/21 16:29 Lorazepam 2 Mg/Ml Vial IV 4 mg Q1HR PRN Administration CIWA-Ar 16-25 Lorazepam 4 mg 07/16/21 10:02 Lorazepam 2 Mg/Ml Vial IV Q15MIN PRN CIWA-Ar >25 Ondansetron HCl 4 mg 07/16/21 17:44 Ondansetron 4 Mg/2 Ml Inj IV Q8H PRN Nausea And Vomiting Potassium Chloride 40 meq 07/22/21 10:00 07/22/21 10:21 Potassium Chloride Er 20 Meq Tab PO 07/27/21 09:59 40 meq QDAY MAU Administration Sodium Chloride 10 ml 07/16/21 22:00 07/22/21 10:22 Sodium Chloride 0.9% 10 Ml Flush Syringe IV 10 ml BID MAU Administration Sodium Chloride 10 ml 07/16/21 17:44 07/21/21 05:01 Sodium Chloride 0.9% 10 Ml Flush Syringe IV 10 ml PRN PRN Administration LINE FLUSH Nutrition/Malnutrition Assess - Dietary Evaluation Nutrition/Malnutrition Findings: Nutrition Notes Start: 07/17/21 12:11 Freq: Status: Active Protocol: Document 07/19/21 15:21 GEORGIE (Rec: 07/19/21 15:42 GEORGIE [id number]) Nutrition Notes Initial or Follow up Reassessment Other Pertinent Diagnosis Delirium T, Met Encephalopathy & Acidosis, Transaminitis, ETOH Withdrawal S Current Diet Pureed (since D 07/18). Labs/Tests 07/19: K 3.0, Crea 0.7, Glu 149, Phos 2.2. Pertinent Medications 07/19: D5/0.45ns 1,000 ml @ 75 ml/Hr, Folic ac, Phos-NaK, others nutritionally unremarkable. Height 5 ft 6 in Weight 76.3 kg [place] Body Weight (kg) 64.54 BMI 27.1 Weight change and time frame Slight body weight change, 811 g reported. Subjective/Other Information RD consult for routine F/U on diet advancement. No report available on %PO intake of meals at the time. Percent of energy/protein needs met: Prescribed Pureed Diet provides for energy/protein needs (1,804 Kcal/77 g) during LOS. Burn Absent Trauma Absent GI Symptoms None Difficulty In Chewing Food Allergy No Skin Integrity/Comment Clear, warm, dry. Minimum of two criteria No Is patient on ventilator? No Is Patient Ambulatory and/or Out of Bed Yes REE-([facility] [place]-ambulatory/OOB) [ 2009.475 [id number]] Kcal/Kg value to use for calculation 30 Approximate Energy Requirements Using 2289 kcal/Kg Calculation Used for Recommendations Kcal/kg Additional Notes Protein: 1-1.2 g/Kg; 65-78 g/ day (from IBW + critical care) . Fluids: 1 ml/Kcal, or as per MD. Nutrition Intervention Change Diet Order: Continue Pureed Diet. Goal #1 Maintain body weight within +/ -3% of current BWt during LOS. Goal #2 Reach and maintain acceptable chemistry lab values during LOS. Follow-Up By: 07/26/21 Additional Comments Continue monitoring food tolerance, %PO intake of meals , Hydration, and BM.
[2021-07-23] MEDS: LORazepam 2 MG/ML VIAL IV PRN (06:22)
[2021-07-23 07:47] LABS: Basophils # (Auto) 0.1 K/mm3 (0.0-0.1); Basophils % (Auto) 2.7 % (0.0-1.8); Eosinophils # (Auto) 0.1 K/mm3 (0.0-0.4); Eosinophils % (Auto) 2.8 % (0.0-4.3); Hematocrit 40.3 % (35.5-45.6); Hemoglobin 13.3 gm/dl (11.8-15.2); Mean Corpuscular HGB Conc 33 % (32-34); Mean Corpuscular Volume 96 fl (84-94); Monocytes # (Auto) 0.7 K/mm3 (0.0-0.8); Monocytes % (Auto) 14.8 % (0.0-7.3); Platelet Count 131 K/mm3 (140-440); Red Blood Count 4.18 M/mm3 (3.65-5.03); Red Cell Distribution Width 13.3 % (13.2-15.2)
[2021-07-23] MEDS: POTASSIUM CHLORIDE ER 20 MEQ TAB PO SCH (10:37)
[2021-07-23] MEDS: atenoloL 50 MG TAB PO SCH (10:38)
[2021-07-23] MEDS: FOLIC ACID 1 MG TAB PO SCH (10:38)
[2021-07-23] MEDS ORDERED: MAGNESIUM SULFATE 3 GM in SODIUM CHLORIDE 0.9% 100 ML IV ONE (12:00)
[2021-07-23] MEDS: D5W/0.45% NACL 1,000 ML IV SCH (12:14)
[2021-07-23] MEDS: THIAMINE 100 MG in SODIUM CHLORIDE 0.9% 50 ML IV SCH (12:25)
--- NOTE | 2021-07-23 18:48 | Progress Note ---
Assessment and Plan Assessment and plan: 55 YO Male with ETOH Dependence presents to ED for evaluation. Patient is stuporous with diminished cognition and history provided by EMS staff, ED staff, as well as information gained from aislinn Winston. As per staff EMS was notified by aislinn Winston when patient was found to be confused and approached a neighbor for assistance. Patient found to be tremulous, with confabulations, nausea, and have clinical symptoms consistent with delirium tremens, metabolic acidosis, metabolic encephalopathy, as well as chronic liver disease complicated by elevated liver function test. Patient admitted to medical floor and initiated on CIWA protocol and treated with supportive care. Assessment and plan: (1) Delirium tremens Current Visit: Yes Status: Acute Plan to address problem: Alcohol withdrawal protocol: CIWA protocol, IV fluid resuscitation therapy, banana bag, thiamine, folic acid, multivitamin, magnesium repletion, phosphorus repletion, neuro check, seizure precautions, aspiration precautions Day 7 since admitted, remains on CIWA protocol. More alert and less confused today. Not tremulous. Will DC wrist restraints. Will DC CIWA protocol and place him on Librium 25 mg every 8 hours and monitor. (2) Metabolic encephalopathy Current Visit: Yes Status: Acute Plan to address problem: CTA, neuro check, seizure cautions, aspiration precautions, supportive care. (3) Metabolic acidosis Current Visit: Yes Status: Acute Plan to address problem: BMP, IV fluid resuscitation therapy, repeat BMP in a.m. (4) Transaminitis Current Visit: Yes Status: Acute Hypokalemia on daily potassium supplementation, 40 mg daily, continue to monitor potassium daily Hypomagnesemia Magnesium remains low, 1.5 today though replaced daily, ordered mag sulfate 3 g IV x1 dose. Hypophosphatemia Replaced and stable (5) DVT prophylaxis Current Visit: Yes Status: Acute Plan to address problem: SCDs bilateral lower extremities while in bed (6) Advance care planning Current Visit: Yes Status: Acute Plan to address problem: Disease education conducted, care plan discussed, diagnoses discussed, prognosis discussed, +30 minutes. 07/18/21 Patient with alcohol withdrawal syndrome, delirium tremens. He is agitated. Nurse production planning supervisor recommend safety belt installer at bedside. Labs show low Mg, low Potassium. Replace and recheck in am. 07/19/21 Patient with alcohol withdrawal syndrome, delirium tremens. He is still agitated, confused. Labs show hypokalemia, hypophosphatemia. Mg is borderline normal. Will replace Potassium, Phos and Mg and recheck at 4pm today. 07/20/21 Patient with alcohol withdrawal syndrome, delirium tremens. He is still agitated, confused. Replace Potassium, magnesium and recheck labs in am 07/21/21 Patient with alcohol withdrawal syndrome,delirium tremens and multiple electrolyte disturbances . He is still agitated,confused. has received multiple doses of iv Potassium, Magnesium, Phos. 07/22/2021: Sleepy, arousable, verbal but confused. Afebrile, heart rate 105, BP 170/90. Wrist restraints in place. Remains on CIWA protocol. Electrolytes improving. Will obtain B12 and folic acid levels. 07/23/2021: On day 7, patient is a less confused and more alert. Will DC CIWA protocol and place him on Librium 25 mg every 8 hours. Discontinue wrist restraints. Replace magnesium with 3 g mag sulfate IV x1 dose. History Interval history: Dizziness since admitted, remains on CIWA protocol. He is more alert and oriented today. Not tremulous. Not needing wrist restraints today. Tolerating diet. Vital signs stable. Hospitalist Physical - Constitutional Vitals: Temp Pulse Resp BP Pulse Ox 97.7 F 69 19 109/63 96 07/23/21 16:57 07/23/21 16:57 07/23/21 16:57 07/23/21 16:57 07/23/21 16:57 General appearance: Present: no acute distress, other (More alert and less conf used today.) - EENT Eyes: Present: EOM intact ENT: clear oral mucosa - Neck Neck: Present: supple - Respiratory Respiratory effort: normal Respiratory: bilateral: CTA - Cardiovascular Rhythm: regular - Extremities Extremities: No edema - Abdominal General gastrointestinal: soft, non-tender, non-distended, normal bowel sounds - Integumentary Integumentary: Absent: jaundice, rash - Psychiatric Psychiatric: cooperative - Neurologic Neurologic: no focal deficits, moves all extremities Results - Labs CBC & Chem 7: 07/23/21 07:17 07/24/21 04:22 Labs: Laboratory Last Values WBC 4.7 K/mm3 (4.5-11.0) 07/23/21 07:17 RBC 4.18 M/mm3 (3.65-5.03) 07/23/21 07:17 Hgb 13.3 gm/dl (11.8-15.2) 07/23/21 07:17 Hct 40.3 % (35.5-45.6) 07/23/21 07:17 MCV 96 fl (84-94) H 07/23/21 07:17 MCH 32 pg (28-32) 07/23/21 07:17 MCHC 33 % (32-34) 07/23/21 07:17 RDW 13.3 % (13.2-15.2) 07/23/21 07:17 Plt Count 131 K/mm3 (140-440) L 07/23/21 07:17 Lymph % (Auto) 21.0 % (13.4-35.0) 07/23/21 07:17 [place] % (Auto) 14.8 % (0.0-7.3) H 07/23/21 07:17 Eos % (Auto) 2.8 % (0.0-4.3) 07/23/21 07:17 Baso % (Auto) 2.7 % (0.0-1.8) H 07/23/21 07:17 Lymph # (Auto) 1.0 K/mm3 (1.2-5.4) L 07/23/21 07:17 [place] # (Auto) 0.7 K/mm3 (0.0-0.8) 07/23/21 07:17 Eos # (Auto) 0.1 K/mm3 (0.0-0.4) 07/23/21 07:17 Baso # (Auto) 0.1 K/mm3 (0.0-0.1) 07/23/21 07:17 Add Manual Diff Complete 07/16/21 10:57 Total Counted 100 07/16/21 10:57 Seg Neutrophils % 58.7 % (40.0-70.0) 07/23/21 07:17 Seg Neuts % (Manual) 89.0 % (40.0-70.0) H 07/16/21 10:57 Band Neutrophils % 2.0 % 07/16/21 10:57 Lymphocytes % (Manual) 6.0 % (13.4-35.0) L 07/16/21 10:57 Monocytes % (Manual) 2.0 % (0.0-7.3) 07/16/21 10:57 Basophils % (Manual) 1.0 % (0.0-1.8) 07/16/21 10:57 Nucleated RBC % Not Reportable 07/16/21 10:57 Seg Neutrophils # 2.8 K/mm3 (1.8-7.7) 07/23/21 07:17 Seg Neutrophils # Man 6.9 K/mm3 (1.8-7.7) 07/16/21 10:57 Band Neutrophils # 0.2 K/mm3 07/16/21 10:57 Lymphocytes # (Manual) 0.5 K/mm3 (1.2-5.4) L 07/16/21 10:57 Abs React Lymphs (Man) 0.0 K/mm3 07/16/21 10:57 Monocytes # (Manual) 0.2 K/mm3 (0.0-0.8) 07/16/21 10:57 Eosinophils # (Manual) 0.0 K/mm3 (0.0-0.4) 07/16/21 10:57 Basophils # (Manual) 0.1 K/mm3 (0.0-0.1) 07/16/21 10:57 Metamyelocytes # 0.0 K/mm3 07/16/21 10:57 Myelocytes # 0.0 K/mm3 07/16/21 10:57 Promyelocytes # 0.0 K/mm3 07/16/21 10:57 Blast Cells # 0.0 K/mm3 07/16/21 10:57 WBC Morphology Not Reportable 07/16/21 10:57 Hypersegmented Neuts Not Reportable 07/16/21 10:57 Hyposegmented Neuts Not Reportable 07/16/21 10:57 Hypogranular Neuts Not Reportable 07/16/21 10:57 Smudge Cells Not Reportable 07/16/21 10:57 Toxic Granulation Not Reportable 07/16/21 10:57 Toxic Vacuolation Not Reportable 07/16/21 10:57 Dohle Bodies Not Reportable 07/16/21 10:57 Pelger-Huet Anomaly Not Reportable 07/16/21 10:57 Lanette Rods Not Reportable 07/16/21 10:57 Platelet Estimate Consistent w auto 07/16/21 10:57 Clumped Platelets Not Reportable 07/16/21 10:57 Plt Clumps, EDTA Not Reportable 07/16/21 10:57 Large Platelets Not Reportable 07/16/21 10:57 Giant Platelets Not Reportable 07/16/21 10:57 Platelet Satelliting Not Reportable 07/16/21 10:57 Plt Morphology Comment Not Reportable 07/16/21 10:57 RBC Morphology Not Reportable 07/16/21 10:57 Dimorphic RBCs Not Reportable 07/16/21 10:57 Polychromasia Not Reportable 07/16/21 10:57 Hypochromasia Not Reportable 07/16/21 10:57 Poikilocytosis Not Reportable 07/16/21 10:57 Anisocytosis Not Reportable 07/16/21 10:57 Microcytosis Not Reportable 07/16/21 10:57 Macrocytosis Not Reportable 07/16/21 10:57 Spherocytes Not Reportable 07/16/21 10:57 Pappenheimer Bodies Not Reportable 07/16/21 10:57 Sickle Cells Not Reportable 07/16/21 10:57 Target Cells Not Reportable 07/16/21 10:57 Tear Drop Cells Not Reportable 07/16/21 10:57 Ovalocytes Not Reportable 07/16/21 10:57 Helmet Cells Not Reportable 07/16/21 10:57 [place] Bodies Not Reportable 07/16/21 10:57 [place] Rings Not Reportable 07/16/21 10:57 [place] Cells Not Reportable 07/16/21 10:57 Bite Cells Not Reportable 07/16/21 10:57 Crenated Cell Not Reportable 07/16/21 10:57 Elliptocytes Not Reportable 07/16/21 10:57 Acanthocytes (Spur) Not Reportable 07/16/21 10:57 Rouleaux Not Reportable 07/16/21 10:57 Hemoglobin C Crystals Not Reportable 07/16/21 10:57 Schistocytes Not Reportable 07/16/21 10:57 Malaria parasites Not Reportable 07/16/21 10:57 Tay Bodies Not Reportable 07/16/21 10:57 Hem Pathologist Commnt No 07/16/21 10:57 PT 13.6 Sec. (12.2-14.9) 07/16/21 09:57 INR 0.94 (0.87-1.13) 07/16/21 09:57 APTT 26.1 Sec. (24.2-36.6) 07/16/21 09:57 Sodium 143 mmol/L (137-145) 07/22/21 04:28 Potassium 3.6 mmol/L (3.6-5.0) 07/22/21 04:28 Chloride 106.6 mmol/L (98-107) 07/22/21 04:28 Carbon Dioxide 22 mmol/L (22-30) 07/22/21 04:28 Anion Gap 18 mmol/L 07/22/21 04:28 BUN 7 mg/dL (9-20) L 07/22/21 04:28 Creatinine 0.8 mg/dL (0.8-1.3) 07/22/21 04:28 Estimated GFR > 60 ml/min 07/22/21 04:28 BUN/Creatinine Ratio 9 % 07/22/21 04:28 Glucose 135 mg/dL (75-100) H 07/22/21 04:28 POC Glucose 126 mg/dL (70-105) H 07/23/21 16:55 Calcium 9.5 mg/dL (8.4-10.2) 07/22/21 04:28 Phosphorus 3.60 mg/dL (2.5-4.5) D 07/23/21 07:17 Magnesium 1.50 mg/dL (1.7-2.3) L 07/23/21 07:17 Total Bilirubin 0.70 mg/dL (0.1-1.2) 07/18/21 07:37 AST 65 units/L (5-40) H 07/18/21 07:37 ALT 69 units/L (7-56) H 07/18/21 07:37 Alkaline Phosphatase 83 units/L (35-129) 07/18/21 07:37 Ammonia 47.0 umol/L (25-60) 07/16/21 09:57 Total Creatine Kinase 176 units/L (55-170) H 07/16/21 09:57 Total Creatine Kinase 176 units/L (55-170) H 07/16/21 09:57 Total Protein 8.4 g/dL (6.3-8.2) H 07/18/21 07:37 Albumin 4.2 g/dL (3.9-5) 07/18/21 07:37 Albumin/Globulin Ratio 1.0 % 07/18/21 07:37 Urine Color Yellow (Yellow) 07/17/21 Unknown Urine Turbidity Clear (Clear) 07/17/21 Unknown Urine pH 7.0 (5.0-7.0) 07/17/21 Unknown Ur Specific [place] 1.012 (1.003-1.030) 07/17/21 Unknown Urine Protein 100 mg/dl mg/dL (Negative) 07/17/21 Unknown Urine Glucose (UA) 50 mg/dL (Negative) 07/17/21 Unknown Urine Ketones 20 mg/dL (Negative) 07/17/21 Unknown Urine Blood Sm (Negative) 07/17/21 Unknown Urine Nitrite Neg (Negative) 07/17/21 Unknown Urine Bilirubin Neg (Negative) 07/17/21 Unknown Urine Urobilinogen 2.0 mg/dL (<2.0) 07/17/21 Unknown Ur Leukocyte Esterase Lg (Negative) 07/17/21 Unknown Urine WBC (Auto) 108.0 /HPF (0.0-6.0) H 07/17/21 Unknown Urine RBC (Auto) 30.0 /HPF (0.0-6.0) 07/17/21 Unknown U Epithel Cells (Auto) 1.0 /HPF (0-13.0) 07/17/21 Unknown Urine Bacteria (Auto) 3+ /HPF (Negative) 07/17/21 Unknown Urine Mucus Few /HPF 07/17/21 Unknown Urine Yeast (Budding) 1+ /HPF 07/17/21 Unknown Urine Sperm 1+ /HPF (MERCHANDISE EXAMINER) 07/17/21 Unknown Salicylates < 0.3 mg/dL (2.8-20.0) L 07/16/21 09:57 Urine Opiates Screen Negative 07/17/21 Unknown Urine Methadone Screen Negative 07/17/21 Unknown Acetaminophen 5.0 ug/mL (10.0-30.0) L 07/16/21 09:57 Ur Barbiturates Screen Negative 07/17/21 Unknown Ur Phencyclidine Scrn Negative 07/17/21 Unknown Ur Amphetamines Screen Negative 07/17/21 Unknown U Benzodiazepines Scrn Positive 07/17/21 Unknown Urine Cocaine Screen Negative 07/17/21 Unknown U Marijuana (THC) Screen Negative 07/17/21 Unknown Drugs of Abuse Note Disclamer 07/17/21 Unknown Plasma/Serum Alcohol < 0.01 % (0-0.07) 07/16/21 09:57 [place]/IV: Voiding Method Incontinent Active Medications - Current Medications Current Medications: Generic Name Dose Route Start Last Admin Trade Name Freq PRN Reason Stop Dose Admin Acetaminophen 650 mg 07/16/21 17:44 Acetaminophen 325 Mg Tab PO Q4H PRN Pain MILD(1-3)/Fever >100.5/WRAY Albuterol 2.5 mg 07/16/21 17:44 Albuterol 2.5 Mg/3 Ml Nebu IH Q4HRT PRN Shortness Of Breath Atenolol 50 mg 07/22/21 10:00 07/23/21 10:38 Atenolol 50 Mg Tab PO 50 mg QDAY MAU Administration Chlordiazepoxide HCl 25 mg 07/23/21 18:43 Chlordiazepoxide 25 Mg Cap PO Q8H PRN Anxiety Folic Acid 1 mg 07/17/21 10:00 07/23/21 10:38 Folic Acid 1 Mg Tab PO 1 mg QDAY MAU Administration Hydralazine HCl 10 mg 07/18/21 22:18 07/22/21 05:27 Hydralazine 20 Mg/1 Ml Inj IV 10 mg Q6H PRN Administration Hypertension Potassium Chloride 40 meq 07/22/21 10:00 07/23/21 10:37 Potassium Chloride Er 20 Meq Tab PO 07/27/21 09:59 40 meq QDAY MAU Administration Sodium Chloride 10 ml 07/16/21 22:00 07/23/21 10:47 Sodium Chloride 0.9% 10 Ml Flush Syringe IV 10 ml BID MAU Administration Sodium Chloride 10 ml 07/16/21 17:44 07/21/21 05:01 Sodium Chloride 0.9% 10 Ml Flush Syringe IV 10 ml PRN PRN Administration LINE FLUSH Thiamine HCl 100 mg 07/24/21 10:00 Thiamine 100 Mg Tab PO QDAY MAU Nutrition/Malnutrition Assess - Dietary Evaluation Nutrition/Malnutrition Findings: Nutrition Notes Start: 07/17/21 12:11 Freq: Status: Active Protocol: Document 07/19/21 15:21 GEORGIE (Rec: 07/19/21 15:42 GEORGIE [id number]) Nutrition Notes Initial or Follow up Reassessment Other Pertinent Diagnosis Delirium T, Met Encephalopathy & Acidosis, Transaminitis, ETOH Withdrawal S Current Diet Pureed (since D 07/18). Labs/Tests 07/19: K 3.0, Crea 0.7, Glu 149, Phos 2.2. Pertinent Medications 07/19: D5/0.45ns 1,000 ml @ 75 ml/Hr, Folic ac, Phos-NaK, others nutritionally unremarkable. Height 5 ft 6 in Weight 76.3 kg [place] Body Weight (kg) 64.54 BMI 27.1 Weight change and time frame Slight body weight change, 811 g reported. Subjective/Other Information RD consult for routine F/U on diet advancement. No report available on %PO intake of meals at the time. Percent of energy/protein needs met: Prescribed Pureed Diet provides for energy/protein needs (1,804 Kcal/77 g) during LOS. Burn Absent Trauma Absent GI Symptoms None Difficulty In Chewing Food Allergy No Skin Integrity/Comment Clear, warm, dry. Minimum of two criteria No Is patient on ventilator? No Is Patient Ambulatory and/or Out of Bed Yes REE-([facility]-. [facility]-ambulatory/OOB) [ 2009.475 [id number]] Kcal/Kg value to use for calculation 30 Approximate Energy Requirements Using 2289 kcal/Kg Calculation Used for Recommendations Kcal/kg Additional Notes Protein: 1-1.2 g/Kg; 65-78 g/ day (from IBW + critical care) . Fluids: 1 ml/Kcal, or as per MD. Nutrition Intervention Change Diet Order: Continue Pureed Diet. Goal #1 Maintain body weight within +/ -3% of current BWt during LOS. Goal #2 Reach and maintain acceptable chemistry lab values during LOS. Follow-Up By: 07/26/21 Additional Comments Continue monitoring food tolerance, %PO intake of meals , Hydration, and BM.
[2021-07-23] MEDS: chlordiazePOXIDE 25 MG CAP PO PRN (21:24)
[2021-07-24 05:22] LABS: Alanine Aminotransferase 44 units/L (7-56); Albumin 3.7 g/dL (3.9-5); BUN/Creatinine Ratio 12; Blood Urea Nitrogen 11 mg/dL (9-20); Calcium 9.2 mg/dL (8.4-10.2); Hemolysis Index 2
[2021-07-24] MEDS: THIAMINE 100 MG TAB PO SCH (12:43)
[2021-07-24] MEDS: POTASSIUM CHLORIDE ER 20 MEQ TAB PO SCH (12:43)
[2021-07-24] MEDS: FOLIC ACID 1 MG TAB PO SCH (12:43)
[2021-07-24] MEDS: atenoloL 50 MG TAB PO SCH (12:44)
--- NOTE | 2021-07-24 20:27 | Progress Note ---
Assessment and Plan Assessment and plan: 55 YO Male with ETOH Dependence presents to ED for evaluation. Patient is stuporous with diminished cognition and history provided by EMS staff, ED staff, as well as information gained from aislinn Winston. As per staff EMS was notified by aislinn Winston when patient was found to be confused and approached a neighbor for assistance. Patient found to be tremulous, with confabulations, nausea, and have clinical symptoms consistent with delirium tremens, metabolic acidosis, metabolic encephalopathy, as well as chronic liver disease complicated by elevated liver function test. Patient admitted to medical floor and initiated on CIWA protocol and treated with supportive care. Assessment and plan: (1) Delirium tremens Current Visit: Yes Status: Acute Plan to address problem: Alcohol withdrawal protocol: CIWA protocol, IV fluid resuscitation therapy, banana bag, thiamine, folic acid, multivitamin, magnesium repletion, phosphorus repletion, neuro check, seizure precautions, aspiration precautions Day 7 since admitted, remains on CIWA protocol. More alert and less confused today. Not tremulous. Will DC wrist restraints. Will DC CIWA protocol and place him on Librium 25 mg every 8 hours and monitor. (2) Metabolic encephalopathy Current Visit: Yes Status: Acute Plan to address problem: CTA, neuro check, seizure cautions, aspiration precautions, supportive care. (3) Metabolic acidosis Current Visit: Yes Status: Acute Plan to address problem: BMP, IV fluid resuscitation therapy, repeat BMP in a.m. (4) Transaminitis Current Visit: Yes Status: Acute Hypokalemia on daily potassium supplementation, 40 mg daily, continue to monitor potassium daily Hypomagnesemia Magnesium remains low, 1.5 today though replaced daily, ordered mag sulfate 3 g IV x1 dose. Hypophosphatemia Replaced and stable (5) DVT prophylaxis Current Visit: Yes Status: Acute Plan to address problem: SCDs bilateral lower extremities while in bed (6) Advance care planning Current Visit: Yes Status: Acute Plan to address problem: Disease education conducted, care plan discussed, diagnoses discussed, prognosis discussed, +30 minutes. 07/18/21 Patient with alcohol withdrawal syndrome, delirium tremens. He is agitated. Nurse malt house supervisor recommend safety engineer pressure vessels at bedside. Labs show low Mg, low Potassium. Replace and recheck in am. 07/19/21 Patient with alcohol withdrawal syndrome, delirium tremens. He is still agitated, confused. Labs show hypokalemia, hypophosphatemia. Mg is borderline normal. Will replace Potassium, Phos and Mg and recheck at 4pm today. 07/20/21 Patient with alcohol withdrawal syndrome, delirium tremens. He is still agitated, confused. Replace Potassium, magnesium and recheck labs in am 07/21/21 Patient with alcohol withdrawal syndrome,delirium tremens and multiple electrolyte disturbances . He is still agitated,confused. has received multiple doses of iv Potassium, Magnesium, Phos. 07/22/2021: Sleepy, arousable, verbal but confused. Afebrile, heart rate 105, BP 170/90. Wrist restraints in place. Remains on CIWA protocol. Electrolytes improving. Will obtain B12 and folic acid levels. 07/23/2021: On day 7, patient is a less confused and more alert. Will DC CIWA protocol and place him on Librium 25 mg every 8 hours. Discontinue wrist restraints. Replace magnesium with 3 g mag sulfate IV x1 dose. Hospitalist Physical - Constitutional Vitals: Temp Pulse Resp BP Pulse Ox 98.2 F 72 16 99/56 97 07/24/21 16:47 07/24/21 16:47 07/24/21 16:47 07/24/21 16:47 07/24/21 16:47 General appearance: Present: no acute distress, other (More alert and less confused today.) Results - Labs CBC & Chem 7: 07/23/21 07:17 07/24/21 04:22 Labs: Laboratory Last Values WBC 4.7 K/mm3 (4.5-11.0) 07/23/21 07:17 RBC 4.18 M/mm3 (3.65-5.03) 07/23/21 07:17 Hgb 13.3 gm/dl (11.8-15.2) 07/23/21 07:17 Hct 40.3 % (35.5-45.6) 07/23/21 07:17 MCV 96 fl (84-94) H 07/23/21 07:17 MCH 32 pg (28-32) 07/23/21 07:17 MCHC 33 % (32-34) 07/23/21 07:17 RDW 13.3 % (13.2-15.2) 07/23/21 07:17 Plt Count 131 K/mm3 (140-440) L 07/23/21 07:17 Lymph % (Auto) 21.0 % (13.4-35.0) 07/23/21 07:17 [place] % (Auto) 14.8 % (0.0-7.3) H 07/23/21 07:17 Eos % (Auto) 2.8 % (0.0-4.3) 07/23/21 07:17 Baso % (Auto) 2.7 % (0.0-1.8) H 07/23/21 07:17 Lymph # (Auto) 1.0 K/mm3 (1.2-5.4) L 07/23/21 07:17 [place] # (Auto) 0.7 K/mm3 (0.0-0.8) 07/23/21 07:17 Eos # (Auto) 0.1 K/mm3 (0.0-0.4) 07/23/21 07:17 Baso # (Auto) 0.1 K/mm3 (0.0-0.1) 07/23/21 07:17 Add Manual Diff Complete 07/16/21 10:57 Total Counted 100 07/16/21 10:57 Seg Neutrophils % 58.7 % (40.0-70.0) 07/23/21 07:17 Seg Neuts % (Manual) 89.0 % (40.0-70.0) H 07/16/21 10:57 Band Neutrophils % 2.0 % 07/16/21 10:57 Lymphocytes % (Manual) 6.0 % (13.4-35.0) L 07/16/21 10:57 Monocytes % (Manual) 2.0 % (0.0-7.3) 07/16/21 10:57 Basophils % (Manual) 1.0 % (0.0-1.8) 07/16/21 10:57 Nucleated RBC % Not Reportable 07/16/21 10:57 Seg Neutrophils # 2.8 K/mm3 (1.8-7.7) 07/23/21 07:17 Seg Neutrophils # Man 6.9 K/mm3 (1.8-7.7) 07/16/21 10:57 Band Neutrophils # 0.2 K/mm3 07/16/21 10:57 Lymphocytes # (Manual) 0.5 K/mm3 (1.2-5.4) L 07/16/21 10:57 Abs React Lymphs (Man) 0.0 K/mm3 07/16/21 10:57 Monocytes # (Manual) 0.2 K/mm3 (0.0-0.8) 07/16/21 10:57 Eosinophils # (Manual) 0.0 K/mm3 (0.0-0.4) 07/16/21 10:57 Basophils # (Manual) 0.1 K/mm3 (0.0-0.1) 07/16/21 10:57 Metamyelocytes # 0.0 K/mm3 07/16/21 10:57 Myelocytes # 0.0 K/mm3 07/16/21 10:57 Promyelocytes # 0.0 K/mm3 07/16/21 10:57 Blast Cells # 0.0 K/mm3 07/16/21 10:57 WBC Morphology Not Reportable 07/16/21 10:57 Hypersegmented Neuts Not Reportable 07/16/21 10:57 Hyposegmented Neuts Not Reportable 07/16/21 10:57 Hypogranular Neuts Not Reportable 07/16/21 10:57 Smudge Cells Not Reportable 07/16/21 10:57 Toxic Granulation Not Reportable 07/16/21 10:57 Toxic Vacuolation Not Reportable 07/16/21 10:57 Dohle Bodies Not Reportable 07/16/21 10:57 Pelger-Huet Anomaly Not Reportable 07/16/21 10:57 Lanette Rods Not Reportable 07/16/21 10:57 Platelet Estimate Consistent w auto 07/16/21 10:57 Clumped Platelets Not Reportable 07/16/21 10:57 Plt Clumps, EDTA Not Reportable 07/16/21 10:57 Large Platelets Not Reportable 07/16/21 10:57 Giant Platelets Not Reportable 07/16/21 10:57 Platelet Satelliting Not Reportable 07/16/21 10:57 Plt Morphology Comment Not Reportable 07/16/21 10:57 RBC Morphology Not Reportable 07/16/21 10:57 Dimorphic RBCs Not Reportable 07/16/21 10:57 Polychromasia Not Reportable 07/16/21 10:57 Hypochromasia Not Reportable 07/16/21 10:57 Poikilocytosis Not Reportable 07/16/21 10:57 Anisocytosis Not Reportable 07/16/21 10:57 Microcytosis Not Reportable 07/16/21 10:57 Macrocytosis Not Reportable 07/16/21 10:57 Spherocytes Not Reportable 07/16/21 10:57 Pappenheimer Bodies Not Reportable 07/16/21 10:57 Sickle Cells Not Reportable 07/16/21 10:57 Target Cells Not Reportable 07/16/21 10:57 Tear Drop Cells Not Reportable 07/16/21 10:57 Ovalocytes Not Reportable 07/16/21 10:57 Helmet Cells Not Reportable 07/16/21 10:57 [place] Bodies Not Reportable 07/16/21 10:57 [place] Rings Not Reportable 07/16/21 10:57 [place] Cells Not Reportable 07/16/21 10:57 Bite Cells Not Reportable 07/16/21 10:57 Crenated Cell Not Reportable 07/16/21 10:57 Elliptocytes Not Reportable 07/16/21 10:57 Acanthocytes (Spur) Not Reportable 07/16/21 10:57 Rouleaux Not Reportable 07/16/21 10:57 Hemoglobin C Crystals Not Reportable 07/16/21 10:57 Schistocytes Not Reportable 07/16/21 10:57 Malaria parasites Not Reportable 07/16/21 10:57 Tay Bodies Not Reportable 07/16/21 10:57 Hem Pathologist Commnt No 07/16/21 10:57 PT 13.6 Sec. (12.2-14.9) 07/16/21 09:57 INR 0.94 (0.87-1.13) 07/16/21 09:57 APTT 26.1 Sec. (24.2-36.6) 07/16/21 09:57 Sodium 137 mmol/L (137-145) 07/24/21 04:22 Potassium 4.1 mmol/L (3.6-5.0) 07/24/21 04:22 Chloride 103.5 mmol/L (98-107) 07/24/21 04:22 Carbon Dioxide 23 mmol/L (22-30) 07/24/21 04:22 Anion Gap 15 mmol/L 07/24/21 04:22 BUN 11 mg/dL (9-20) 07/24/21 04:22 Creatinine 0.9 mg/dL (0.8-1.3) 07/24/21 04:22 Estimated GFR > 60 ml/min 07/24/21 04:22 BUN/Creatinine Ratio 12 % 07/24/21 04:22 Glucose 153 mg/dL (75-100) H 07/24/21 04:22 POC Glucose 126 mg/dL (70-105) H 07/23/21 16:55 Calcium 9.2 mg/dL (8.4-10.2) 07/24/21 04:22 Phosphorus 3.40 mg/dL (2.5-4.5) 07/24/21 04:22 Magnesium 1.90 mg/dL (1.7-2.3) 07/24/21 04:22 Total Bilirubin 0.50 mg/dL (0.1-1.2) 07/24/21 04:22 AST 39 units/L (5-40) 07/24/21 04:22 ALT 44 units/L (7-56) 07/24/21 04:22 Alkaline Phosphatase 59 units/L (35-129) 07/24/21 04:22 Ammonia 47.0 umol/L (25-60) 07/16/21 09:57 Total Creatine Kinase 176 units/L (55-170) H 07/16/21 09:57 Total Creatine Kinase 176 units/L (55-170) H 07/16/21 09:57 Total Protein 7.6 g/dL (6.3-8.2) 07/24/21 04:22 Albumin 3.7 g/dL (3.9-5) L 07/24/21 04:22 Albumin/Globulin Ratio 0.9 % 07/24/21 04:22 Urine Color Yellow (Yellow) 07/17/21 Unknown Urine Turbidity Clear (Clear) 07/17/21 Unknown Urine pH 7.0 (5.0-7.0) 07/17/21 Unknown Ur Specific [place] 1.012 (1.003-1.030) 07/17/21 Unknown Urine Protein 100 mg/dl mg/dL (Negative) 07/17/21 Unknown Urine Glucose (UA) 50 mg/dL (Negative) 07/17/21 Unknown Urine Ketones 20 mg/dL (Negative) 07/17/21 Unknown Urine Blood Sm (Negative) 07/17/21 Unknown Urine Nitrite Neg (Negative) 07/17/21 Unknown Urine Bilirubin Neg (Negative) 07/17/21 Unknown Urine Urobilinogen 2.0 mg/dL (<2.0) 07/17/21 Unknown Ur Leukocyte Esterase Lg (Negative) 07/17/21 Unknown Urine WBC (Auto) 108.0 /HPF (0.0-6.0) H 07/17/21 Unknown Urine RBC (Auto) 30.0 /HPF (0.0-6.0) 07/17/21 Unknown U Epithel Cells (Auto) 1.0 /HPF (0-13.0) 07/17/21 Unknown Urine Bacteria (Auto) 3+ /HPF (Negative) 07/17/21 Unknown Urine Mucus Few /HPF 07/17/21 Unknown Urine Yeast (Budding) 1+ /HPF 07/17/21 Unknown Urine Sperm 1+ /HPF (ENERGY SYSTEMS LABORATORY DIRECTOR) 07/17/21 Unknown Salicylates < 0.3 mg/dL (2.8-20.0) L 07/16/21 09:57 Urine Opiates Screen Negative 07/17/21 Unknown Urine Methadone Screen Negative 07/17/21 Unknown Acetaminophen 5.0 ug/mL (10.0-30.0) L 07/16/21 09:57 Ur Barbiturates Screen Negative 07/17/21 Unknown Ur Phencyclidine Scrn Negative 07/17/21 Unknown Ur Amphetamines Screen Negative 07/17/21 Unknown U Benzodiazepines Scrn Positive 07/17/21 Unknown Urine Cocaine Screen Negative 07/17/21 Unknown U Marijuana (THC) Screen Negative 07/17/21 Unknown Drugs of Abuse Note Disclamer 07/17/21 Unknown Plasma/Serum Alcohol < 0.01 % (0-0.07) 07/16/21 09:57 [place]/IV: Voiding Method Urinal Active Medications - Current Medications Current Medications: Generic Name Dose Route Start Last Admin Trade Name Freq PRN Reason Stop Dose Admin Acetaminophen 650 mg 07/16/21 17:44 Acetaminophen 325 Mg Tab PO Q4H PRN Pain MILD(1-3)/Fever >100.5/WRAY Albuterol 2.5 mg 07/16/21 17:44 Albuterol 2.5 Mg/3 Ml Nebu IH Q4HRT PRN Shortness Of Breath Atenolol 50 mg 07/22/21 10:00 07/24/21 12:44 Atenolol 50 Mg Tab PO 50 mg QDAY MAU Administration Chlordiazepoxide HCl 25 mg 07/23/21 18:43 07/23/21 21:24 Chlordiazepoxide 25 Mg Cap PO 25 mg Q8H PRN Administration Anxiety Folic Acid 1 mg 07/17/21 10:00 07/24/21 12:43 Folic Acid 1 Mg Tab PO 1 mg QDAY MAU Administration Hydralazine HCl 10 mg 07/18/21 22:18 07/22/21 05:27 Hydralazine 20 Mg/1 Ml Inj IV 10 mg Q6H PRN Administration Hypertension Potassium Chloride 40 meq 07/22/21 10:00 07/24/21 12:43 Potassium Chloride Er 20 Meq Tab PO 07/27/21 09:59 40 meq QDAY MAU Administration Sodium Chloride 10 ml 07/16/21 22:00 07/24/21 12:43 Sodium Chloride 0.9% 10 Ml Flush Syringe IV 10 ml BID MAU Administration Sodium Chloride 10 ml 07/16/21 17:44 07/21/21 05:01 Sodium Chloride 0.9% 10 Ml Flush Syringe IV 10 ml PRN PRN Administration LINE FLUSH Thiamine HCl 100 mg 07/24/21 10:00 07/24/21 12:43 Thiamine 100 Mg Tab PO 100 mg QDAY MAU Administration Nutrition/Malnutrition Assess - Dietary Evaluation Nutrition/Malnutrition Findings: Nutrition Notes Start: 07/17/21 12:1 1 Freq: Status: Active Protocol: Document 07/19/21 15:21 GEORGIE (Rec: 07/19/21 15:42 GEORGIE [id number]) Nutrition Notes Initial or Follow up Reassessment Other Pertinent Diagnosis Delirium T, Met Encephalopathy & Acidosis, Transaminitis, ETOH Withdrawal S Current Diet Pureed (since D 07/18). Labs/Tests 07/19: K 3.0, Crea 0.7, Glu 149, Phos 2.2. Pertinent Medications 07/19: D5/0.45ns 1,000 ml @ 75 ml/Hr, Folic ac, Phos-NaK, others nutritionally unremarkable. Height 5 ft 6 in Weight 76.3 kg [place] Body Weight (kg) 64.54 BMI 27.1 Weight change and time frame Slight body weight change, 811 g reported. Subjective/Other Information RD consult for routine F/U on diet advancement. No report available on %PO intake of meals at the time. Percent of energy/protein needs met: Prescribed Pureed Diet provides for energy/protein needs (1,804 Kcal/77 g) during LOS. Burn Absent Trauma Absent GI Symptoms None Difficulty In Chewing Food Allergy No Skin Integrity/Comment Clear, warm, dry. Minimum of two criteria No Is patient on ventilator? No Is Patient Ambulatory and/or Out of Bed Yes REE-([place]-ambulatory/OOB) [ 2009.475 [id number]] Kcal/Kg value to use for calculation 30 Approximate Energy Requirements Using 2289 kcal/Kg Calculation Used for Recommendations Kcal/kg Additional Notes Protein: 1-1.2 g/Kg; 65-78 g/ day (from IBW + critical care) . Fluids: 1 ml/Kcal, or as per MD. Nutrition Intervention Change Diet Order: Continue Pureed Diet. Goal #1 Maintain body weight within +/ -3% of current BWt during LOS. Goal #2 Reach and maintain acceptable chemistry lab values during LOS. Follow-Up By: 07/26/21 Additional Comments Continue monitoring food tolerance, %PO intake of meals , Hydration, and BM.
[2021-07-24] MEDS: chlordiazePOXIDE 25 MG CAP PO PRN (22:20)
[2021-07-25 05:32] LABS: Alanine Aminotransferase 41 units/L (7-56); Albumin 3.6 g/dL (3.9-5); BUN/Creatinine Ratio 19; Blood Urea Nitrogen 17 mg/dL (9-20); Hemolysis Index 7
[2021-07-25] MEDS: atenoloL 50 MG TAB PO SCH (09:41)
[2021-07-25] MEDS: FOLIC ACID 1 MG TAB PO SCH (09:41)
[2021-07-25] MEDS: THIAMINE 100 MG TAB PO SCH (09:41)
[2021-07-25] MEDS: POTASSIUM CHLORIDE ER 20 MEQ TAB PO SCH (09:41)
[2021-07-25] MEDS ORDERED: MAGNESIUM SULFATE 3 GM in SODIUM CHLORIDE 0.9% 100 ML IV ONE (11:00)
--- NOTE | 2021-07-25 19:02 | Progress Note ---
Hospitalist Physical - Constitutional Vitals: Temp Pulse Resp BP Pulse Ox 98.9 F 75 22 141/76 97 07/25/21 18:02 07/25/21 18:02 07/25/21 18:02 07/25/21 18:02 07/25/21 18:02 General appearance: Present: no acute distress, other (More alert and less confused today.) Results - Labs CBC & Chem 7: 07/23/21 07:17 07/25/21 04:44 Labs: Laboratory Last Values WBC 4.7 K/mm3 (4.5-11.0) 07/23/21 07:17 RBC 4.18 M/mm3 (3.65-5.03) 07/23/21 07:17 Hgb 13.3 gm/dl (11.8-15.2) 07/23/21 07:17 Hct 40.3 % (35.5-45.6) 07/23/21 07:17 MCV 96 fl (84-94) H 07/23/21 07:17 MCH 32 pg (28-32) 07/23/21 07:17 MCHC 33 % (32-34) 07/23/21 07:17 RDW 13.3 % (13.2-15.2) 07/23/21 07:17 Plt Count 131 K/mm3 (140-440) L 07/23/21 07:17 Lymph % (Auto) 21.0 % (13.4-35.0) 07/23/21 07:17 [place] % (Auto) 14.8 % (0.0-7.3) H 07/23/21 07:17 Eos % (Auto) 2.8 % (0.0-4.3) 07/23/21 07:17 Baso % (Auto) 2.7 % (0.0-1.8) H 07/23/21 07:17 Lymph # (Auto) 1.0 K/mm3 (1.2-5.4) L 07/23/21 07:17 [place] # (Auto) 0.7 K/mm3 (0.0-0.8) 07/23/21 07:17 Eos # (Auto) 0.1 K/mm3 (0.0-0.4) 07/23/21 07:17 Baso # (Auto) 0.1 K/mm3 (0.0-0.1) 07/23/21 07:17 Add Manual Diff Complete 07/16/21 10:57 Total Counted 100 07/16/21 10:57 Seg Neutrophils % 58.7 % (40.0-70.0) 07/23/21 07:17 Seg Neuts % (Manual) 89.0 % (40.0-70.0) H 07/16/21 10:57 Band Neutrophils % 2.0 % 07/16/21 10:57 Lymphocytes % (Manual) 6.0 % (13.4-35.0) L 07/16/21 10:57 Monocytes % (Manual) 2.0 % (0.0-7.3) 07/16/21 10:57 Basophils % (Manual) 1.0 % (0.0-1.8) 07/16/21 10:57 Nucleated RBC % Not Reportable 07/16/21 10:57 Seg Neutrophils # 2.8 K/mm3 (1.8-7.7) 07/23/21 07:17 Seg Neutrophils # Man 6.9 K/mm3 (1.8-7.7) 07/16/21 10:57 Band Neutrophils # 0.2 K/mm3 07/16/21 10:57 Lymphocytes # (Manual) 0.5 K/mm3 (1.2-5.4) L 07/16/21 10:57 Abs React Lymphs (Man) 0.0 K/mm3 07/16/21 10:57 Monocytes # (Manual) 0.2 K/mm3 (0.0-0.8) 07/16/21 10:57 Eosinophils # (Manual) 0.0 K/mm3 (0.0-0.4) 07/16/21 10:57 Basophils # (Manual) 0.1 K/mm3 (0.0-0.1) 07/16/21 10:57 Metamyelocytes # 0.0 K/mm3 07/16/21 10:57 Myelocytes # 0.0 K/mm3 07/16/21 10:57 Promyelocytes # 0.0 K/mm3 07/16/21 10:57 Blast Cells # 0.0 K/mm3 07/16/21 10:57 WBC Morphology Not Reportable 07/16/21 10:57 Hypersegmented Neuts Not Reportable 07/16/21 10:57 Hyposegmented Neuts Not Reportable 07/16/21 10:57 Hypogranular Neuts Not Reportable 07/16/21 10:57 Smudge Cells Not Reportable 07/16/21 10:57 Toxic Granulation Not Reportable 07/16/21 10:57 Toxic Vacuolation Not Reportable 07/16/21 10:57 Dohle Bodies Not Reportable 07/16/21 10:57 Pelger-Huet Anomaly Not Reportable 07/16/21 10:57 Lanette Rods Not Reportable 07/16/21 10:57 Platelet Estimate Consistent w auto 07/16/21 10:57 Clumped Platelets Not Reportable 07/16/21 10:57 Plt Clumps, EDTA Not Reportable 07/16/21 10:57 Large Platelets Not Reportable 07/16/21 10:57 Giant Platelets Not Reportable 07/16/21 10:57 Platelet Satelliting Not Reportable 07/16/21 10:57 Plt Morphology Comment Not Reportable 07/16/21 10:57 RBC Morphology Not Reportable 07/16/21 10:57 Dimorphic RBCs Not Reportable 07/16/21 10:57 Polychromasia Not Reportable 07/16/21 10:57 Hypochromasia Not Reportable 07/16/21 10:57 Poikilocytosis Not Reportable 07/16/21 10:57 Anisocytosis Not Reportable 07/16/21 10:57 Microcytosis Not Reportable 07/16/21 10:57 Macrocytosis Not Reportable 07/16/21 10:57 Spherocytes Not Reportable 07/16/21 10:57 Pappenheimer Bodies Not Reportable 07/16/21 10:57 Sickle Cells Not Reportable 07/16/21 10:57 Target Cells Not Reportable 07/16/21 10:57 Tear Drop Cells Not Reportable 07/16/21 10:57 Ovalocytes Not Reportable 07/16/21 10:57 Helmet Cells Not Reportable 07/16/21 10:57 [place] Bodies Not Reportable 07/16/21 10:57 [place] Rings Not Reportable 07/16/21 10:57 Kimberly Cells Not Reportable 07/16/21 10:57 Bite Cells Not Reportable 07/16/21 10:57 Crenated Cell Not Reportable 07/16/21 10:57 Elliptocytes Not Reportable 07/16/21 10:57 Acanthocytes (Spur) Not Reportable 07/16/21 10:57 Rouleaux Not Reportable 07/16/21 10:57 Hemoglobin C Crystals Not Reportable 07/16/21 10:57 Schistocytes Not Reportable 07/16/21 10:57 Malaria parasites Not Reportable 07/16/21 10:57 Tay Bodies Not Reportable 07/16/21 10:57 Hem Pathologist Commnt No 07/16/21 10:57 PT 13.6 Sec. (12.2-14.9) 07/16/21 09:57 INR 0.94 (0.87-1.13) 07/16/21 09:57 APTT 26.1 Sec. (24.2-36.6) 07/16/21 09:57 Sodium 138 mmol/L (137-145) 07/25/21 04:44 Potassium 4.2 mmol/L (3.6-5.0) 07/25/21 04:44 Chloride 104.5 mmol/L (98-107) 07/25/21 04:44 Carbon Dioxide 23 mmol/L (22-30) 07/25/21 04:44 Anion Gap 15 mmol/L 07/25/21 04:44 BUN 17 mg/dL (9-20) 07/25/21 04:44 Creatinine 0.9 mg/dL (0.8-1.3) 07/25/21 04:44 Estimated GFR > 60 ml/min 07/25/21 04:44 BUN/Creatinine Ratio 19 % 07/25/21 04:44 Glucose 155 mg/dL (75-100) H 07/25/21 04:44 POC Glucose 126 mg/dL (70-105) H 07/23/21 16:55 Calcium 9.0 mg/dL (8.4-10.2) 07/25/21 04:44 Phosphorus 3.50 mg/dL (2.5-4.5) 07/25/21 04:44 Magnesium 1.60 mg/dL (1.7-2.3) L 07/25/21 04:44 Total Bilirubin 0.40 mg/dL (0.1-1.2) 07/25/21 04:44 AST 39 units/L (5-40) 07/25/21 04:44 ALT 41 units/L (7-56) 07/25/21 04:44 Alkaline Phosphatase 67 units/L (35-129) 07/25/21 04:44 Ammonia 47.0 umol/L (25-60) 07/16/21 09:57 Total Creatine Kinase 176 units/L (55-170) H 07/16/21 09:57 Total Creatine Kinase 176 units/L (55-170) H 07/16/21 09:57 Total Protein 7.2 g/dL (6.3-8.2) 07/25/21 04:44 Albumin 3.6 g/dL (3.9-5) L 07/25/21 04:44 Albumin/Globulin Ratio 1.0 % 07/25/21 04:44 Urine Color Yellow (Yellow) 07/17/21 Unknown Urine Turbidity Clear (Clear) 07/17/21 Unknown Urine pH 7.0 (5.0-7.0) 07/17/21 Unknown Ur Specific [place] 1.012 (1.003-1.030) 07/17/21 Unknown Urine Protein 100 mg/dl mg/dL (Negative) 07/17/21 Unknown Urine Glucose (UA) 50 mg/dL (Negative) 07/17/21 Unknown Urine Ketones 20 mg/dL (Negative) 07/17/21 Unknown Urine Blood Sm (Negative) 07/17/21 Unknown Urine Nitrite Neg (Negative) 07/17/21 Unknown Urine Bilirubin Neg (Negative) 07/17/21 Unknown Urine Urobilinogen 2.0 mg/dL (<2.0) 07/17/21 Unknown Ur Leukocyte Esterase Lg (Negative) 07/17/21 Unknown Urine WBC (Auto) 108.0 /HPF (0.0-6.0) H 07/17/21 Unknown Urine RBC (Auto) 30.0 /HPF (0.0-6.0) 07/17/21 Unknown U Epithel Cells (Auto) 1.0 /HPF (0-13.0) 07/17/21 Unknown Urine Bacteria (Auto) 3+ /HPF (Negative) 07/17/21 Unknown Urine Mucus Few /HPF 07/17/21 Unknown Urine Yeast (Budding) 1+ /HPF 07/17/21 Unknown Urine Sperm 1+ /HPF (ECOLOGY TEACHER) 07/17/21 Unknown Salicylates < 0.3 mg/dL (2.8-20.0) L 07/16/21 09:57 Urine Opiates Screen Negative 07/17/21 Unknown Urine Methadone Screen Negative 07/17/21 Unknown Acetaminophen 5.0 ug/mL (10.0-30.0) L 07/16/21 09:57 Ur Barbiturates Screen Negative 07/17/21 Unknown Ur Phencyclidine Scrn Negative 07/17/21 Unknown Ur Amphetamines Screen Negative 07/17/21 Unknown U Benzodiazepines Scrn Positive 07/17/21 Unknown Urine Cocaine Screen Negative 07/17/21 Unknown U Marijuana (THC) Screen Negative 07/17/21 Unknown Drugs of Abuse Note Disclamer 07/17/21 Unknown Plasma/Serum Alcohol < 0.01 % (0-0.07) 07/16/21 09:57 [place]/IV: Voiding Method Urinal Active Medications - Current Medications Current Medications: Generic Name Dose Route Start Last Admin Trade Name Freq PRN Reason Stop Dose Admin Acetaminophen 650 mg 07/16/21 17:44 Acetaminophen 325 Mg Tab PO Q4H PRN Pain MILD(1-3)/Fever >100.5/WRAY Albuterol 2.5 mg 07/16/21 17:44 Albuterol 2.5 Mg/3 Ml Nebu IH Q4HRT PRN Shortness Of Breath Atenolol 50 mg 07/22/21 10:00 07/25/21 09:41 Atenolol 50 Mg Tab PO 50 mg QDAY MAU Administration Chlordiazepoxide HCl 25 mg 07/23/21 18:43 07/24/21 22:20 Chlordiazepoxide 25 Mg Cap PO 25 mg Q8H PRN Administration Anxiety Folic Acid 1 mg 07/17/21 10:00 07/25/21 09:41 Folic Acid 1 Mg Tab PO 1 mg QDAY MAU Administration Hydralazine HCl 10 mg 07/18/21 22:18 07/22/21 05:27 Hydralazine 20 Mg/1 Ml Inj IV 10 mg Q6H PRN Administration Hypertension Potassium Chloride 40 meq 07/22/21 10:00 07/25/21 09:41 Potassium Chloride Er 20 Meq Tab PO 07/27/21 09:59 40 meq QDAY MAU Administration Sodium Chloride 10 ml 07/16/21 22:00 07/25/21 09:41 Sodium Chloride 0.9% 10 Ml Flush Syringe IV 10 ml BID MAU Administration Sodium Chloride 10 ml 07/16/21 17:44 07/21/21 05:01 Sodium Chloride 0.9% 10 Ml Flush Syringe IV 10 ml PRN PRN Administration LINE FLUSH Thiamine HCl 100 mg 07/24/21 10:00 07/25/21 09:41 Thiamine 100 Mg Tab PO 100 mg QDAY MAU Administration Nutrition/Malnutrition Assess - Dietary Evaluation Nutrition/Malnutrition Findings: Nutrition Notes Start: 07/17/21 12:11 Freq: Status: Active Protocol: Document 07/19/21 15:21 GEORGIE (Rec: 07/19/21 15:42 [email or web address] [email or web address]) Nutrition Notes Initial or Follow up Reassessment Other Pertinent Diagnosis Delirium T, Met Encephalopathy & Acidosis, Transaminitis, ETOH Withdrawal S Current Diet Pureed (since D 07/18). Labs/Tests 07/19: K 3.0, Crea 0.7, Glu 149, Phos 2.2. Pertinent Medications 07/19: D5/0.45ns 1,000 ml @ 75 ml/Hr, Folic ac, Phos-NaK, others nutritionally unremarkable. Height 5 ft 6 in Weight 76.3 kg [place] Body Weight (kg) 64.54 BMI 27.1 Weight change and time frame Slight body weight change, 811 g reported. Subjective/Other Information RD consult for routine F/U on diet advancement. No report available on %PO intake of meals at the time. Percent of energy/protein needs met: Prescribed Pureed Diet provides for energy/protein needs (1,804 Kcal/77 g) during LOS. Burn Absent Trauma Absent GI Symptoms None Difficulty In Chewing Food Allergy No Skin Integrity/Comment Clear, warm, dry. Minimum of two criteria No Is patient on ventilator? No Is Patient Ambulatory and/or Out of Bed Yes REE-(Walker-St. or-ambulatory/OOB) [ 2009.475 [id number]] Kcal/Kg value to use for calculation 30 Approximate Energy Requirements Using 2289 kcal/Kg Calculation Used for Recommendations Kcal/kg Additional Notes Protein: 1-1.2 g/Kg; 65-78 g/ day (from IBW + critical care) . Fluids: 1 ml/Kcal, or as per MD. Nutrition Intervention Change Diet Order: Continue Pureed Diet. Goal #1 Maintain body weight within +/ -3% of current BWt during LOS. Goal #2 Reach and maintain acceptable chemistry lab values during LOS. Follow-Up By: 07/26/21 Additional Comments Continue monitoring food tolerance, %PO intake of meals , Hydration, and BM.
[2021-07-25] MEDS ORDERED: chlordiazePOXIDE 25 MG CAP PO SCH (22:00)
[2021-07-26 05:57] LABS: Alanine Aminotransferase 39 units/L (7-56); Albumin 3.6 g/dL (3.9-5); BUN/Creatinine Ratio 18; Blood Urea Nitrogen 14 mg/dL (9-20); Hemolysis Index 10
[2021-07-26] MEDS: POTASSIUM CHLORIDE ER 20 MEQ TAB PO SCH (09:11)
[2021-07-26] MEDS: FOLIC ACID 1 MG TAB PO SCH (09:13)
[2021-07-26] MEDS: THIAMINE 100 MG TAB PO SCH (09:13)
[2021-07-26] MEDS: atenoloL 50 MG TAB PO SCH (09:16)
--- NOTE | 2021-07-26 19:44 | Progress Note ---
Hospitalist Physical - Constitutional Vitals: Temp Pulse Resp BP Pulse Ox 98.6 F 70 22 128/68 98 07/26/21 17:44 07/26/21 17:44 07/26/21 17:44 07/26/21 17:44 07/26/21 17:44 General appearance: Present: no acute distress, other (More alert and less confused today.) Results - Labs CBC & Chem 7: 07/23/21 07:17 07/26/21 04:38 Labs: Laboratory Last Values WBC 4.7 K/mm3 (4.5-11.0) 07/23/21 07:17 RBC 4.18 M/mm3 (3.65-5.03) 07/23/21 07:17 Hgb 13.3 gm/dl (11.8-15.2) 07/23/21 07:17 Hct 40.3 % (35.5-45.6) 07/23/21 07:17 MCV 96 fl (84-94) H 07/23/21 07:17 MCH 32 pg (28-32) 07/23/21 07:17 MCHC 33 % (32-34) 07/23/21 07:17 RDW 13.3 % (13.2-15.2) 07/23/21 07:17 Plt Count 131 K/mm3 (140-440) L 07/23/21 07:17 Lymph % (Auto) 21.0 % (13.4-35.0) 07/23/21 07:17 Hanson % (Auto) 14.8 % (0.0-7.3) H 07/23/21 07:17 Eos % (Auto) 2.8 % (0.0-4.3) 07/23/21 07:17 Baso % (Auto) 2.7 % (0.0-1.8) H 07/23/21 07:17 Lymph # (Auto) 1.0 K/mm3 (1.2-5.4) L 07/23/21 07:17 Hanson # (Auto) 0.7 K/mm3 (0.0-0.8) 07/23/21 07:17 Eos # (Auto) 0.1 K/mm3 (0.0-0.4) 07/23/21 07:17 Baso # (Auto) 0.1 K/mm3 (0.0-0.1) 07/23/21 07:17 Add Manual Diff Complete 07/16/21 10:57 Total Counted 100 07/16/21 10:57 Seg Neutrophils % 58.7 % (40.0-70.0) 07/23/21 07:17 Seg Neuts % (Manual) 89.0 % (40.0-70.0) H 07/16/21 10:57 Band Neutrophils % 2.0 % 07/16/21 10:57 Lymphocytes % (Manual) 6.0 % (13.4-35.0) L 07/16/21 10:57 Monocytes % (Manual) 2.0 % (0.0-7.3) 07/16/21 10:57 Basophils % (Manual) 1.0 % (0.0-1.8) 07/16/21 10:57 Nucleated RBC % Not Reportable 07/16/21 10:57 Seg Neutrophils # 2.8 K/mm3 (1.8-7.7) 07/23/21 07:17 Seg Neutrophils # Man 6.9 K/mm3 (1.8-7.7) 07/16/21 10:57 Band Neutrophils # 0.2 K/mm3 07/16/21 10:57 Lymphocytes # (Manual) 0.5 K/mm3 (1.2-5.4) L 07/16/21 10:57 Abs React Lymphs (Man) 0.0 K/mm3 07/16/21 10:57 Monocytes # (Manual) 0.2 K/mm3 (0.0-0.8) 07/16/21 10:57 Eosinophils # (Manual) 0.0 K/mm3 (0.0-0.4) 07/16/21 10:57 Basophils # (Manual) 0.1 K/mm3 (0.0-0.1) 07/16/21 10:57 Metamyelocytes # 0.0 K/mm3 07/16/21 10:57 Myelocytes # 0.0 K/mm3 07/16/21 10:57 Promyelocytes # 0.0 K/mm3 07/16/21 10:57 Blast Cells # 0.0 K/mm3 07/16/21 10:57 WBC Morphology Not Reportable 07/16/21 10:57 Hypersegmented Neuts Not Reportable 07/16/21 10:57 Hyposegmented Neuts Not Reportable 07/16/21 10:57 Hypogranular Neuts Not Reportable 07/16/21 10:57 Smudge Cells Not Reportable 07/16/21 10:57 Toxic Granulation Not Reportable 07/16/21 10:57 Toxic Vacuolation Not Reportable 07/16/21 10:57 Dohle Bodies Not Reportable 07/16/21 10:57 Pelger-Huet Anomaly Not Reportable 07/16/21 10:57 Lanette Rods Not Reportable 07/16/21 10:57 Platelet Estimate Consistent w auto 07/16/21 10:57 Clumped Platelets Not Reportable 07/16/21 10:57 Plt Clumps, EDTA Not Reportable 07/16/21 10:57 Large Platelets Not Reportable 07/16/21 10:57 Giant Platelets Not Reportable 07/16/21 10:57 Platelet Satelliting Not Reportable 07/16/21 10:57 Plt Morphology Comment Not Reportable 07/16/21 10:57 RBC Morphology Not Reportable 07/16/21 10:57 Dimorphic RBCs Not Reportable 07/16/21 10:57 Polychromasia Not Reportable 07/16/21 10:57 Hypochromasia Not Reportable 07/16/21 10:57 Poikilocytosis Not Reportable 07/16/21 10:57 Anisocytosis Not Reportable 07/16/21 10:57 Microcytosis Not Reportable 07/16/21 10:57 Macrocytosis Not Reportable 07/16/21 10:57 Spherocytes Not Reportable 07/16/21 10:57 Pappenheimer Bodies Not Reportable 07/16/21 10:57 Sickle Cells Not Reportable 07/16/21 10:57 Target Cells Not Reportable 07/16/21 10:57 Tear Drop Cells Not Reportable 07/16/21 10:57 Ovalocytes Not Reportable 07/16/21 10:57 Helmet Cells Not Reportable 07/16/21 10:57 [place] Bodies Not Reportable 07/16/21 10:57 [place] Rings Not Reportable 07/16/21 10:57 Kimberly Cells Not Reportable 07/16/21 10:57 Bite Cells Not Reportable 07/16/21 10:57 Crenated Cell Not Reportable 07/16/21 10:57 Elliptocytes Not Reportable 07/16/21 10:57 Acanthocytes (Spur) Not Reportable 07/16/21 10:57 Rouleaux Not Reportable 07/16/21 10:57 Hemoglobin C Crystals Not Reportable 07/16/21 10:57 Schistocytes Not Reportable 07/16/21 10:57 Malaria parasites Not Reportable 07/16/21 10:57 Tay Bodies Not Reportable 07/16/21 10:57 Hem Pathologist Commnt No 07/16/21 10:57 PT 13.6 Sec. (12.2-14.9) 07/16/21 09:57 INR 0.94 (0.87-1.13) 07/16/21 09:57 APTT 26.1 Sec. (24.2-36.6) 07/16/21 09:57 Sodium 136 mmol/L (137-145) L 07/26/21 04:38 Potassium 4.2 mmol/L (3.6-5.0) 07/26/21 04:38 Chloride 101.1 mmol/L (98-107) 07/26/21 04:38 Carbon Dioxide 22 mmol/L (22-30) 07/26/21 04:38 Anion Gap 17 mmol/L 07/26/21 04:38 BUN 14 mg/dL (9-20) 07/26/21 04:38 Creatinine 0.8 mg/dL (0.8-1.3) 07/26/21 04:38 Estimated GFR > 60 ml/min 07/26/21 04:38 BUN/Creatinine Ratio 18 % 07/26/21 04:38 Glucose 141 mg/dL (75-100) H 07/26/21 04:38 POC Glucose 126 mg/dL (70-105) H 07/23/21 16:55 Calcium 9.0 mg/dL (8.4-10.2) 07/26/21 04:38 Phosphorus 3.60 mg/dL (2.5-4.5) 07/26/21 04:38 Magnesium 1.80 mg/dL (1.7-2.3) 07/26/21 04:38 Total Bilirubin 0.20 mg/dL (0.1-1.2) 07/26/21 04:38 AST 28 units/L (5-40) 07/26/21 04:38 ALT 39 units/L (7-56) 07/26/21 04:38 Alkaline Phosphatase 72 units/L (35-129) 07/26/21 04:38 Ammonia 47.0 umol/L (25-60) 07/16/21 09:57 Total Creatine Kinase 176 units/L (55-170) H 07/16/21 09:57 Total Creatine Kinase 176 units/L (55-170) H 07/16/21 09:57 Total Protein 6.9 g/dL (6.3-8.2) 07/26/21 04:38 Albumin 3.6 g/dL (3.9-5) L 07/26/21 04:38 Albumin/Globulin Ratio 1.1 % 07/26/21 04:38 Urine Color Yellow (Yellow) 07/17/21 Unknown Urine Turbidity Clear (Clear) 07/17/21 Unknown Urine pH 7.0 (5.0-7.0) 07/17/21 Unknown Ur Specific [place] 1.012 (1.003-1.030) 07/17/21 Unknown Urine Protein 100 mg/dl mg/dL (Negative) 07/17/21 Unknown Urine Glucose (UA) 50 mg/dL (Negative) 07/17/21 Unknown Urine Ketones 20 mg/dL (Negative) 07/17/21 Unknown Urine Blood Sm (Negative) 07/17/21 Unknown Urine Nitrite Neg (Negative) 07/17/21 Unknown Urine Bilirubin Neg (Negative) 07/17/21 Unknown Urine Urobilinogen 2.0 mg/dL (<2.0) 07/17/21 Unknown Ur Leukocyte Esterase Lg (Negative) 07/17/21 Unknown Urine WBC (Auto) 108.0 /HPF (0.0-6.0) H 07/17/21 Unknown Urine RBC (Auto) 30.0 /HPF (0.0-6.0) 07/17/21 Unknown U Epithel Cells (Auto) 1.0 /HPF (0-13.0) 07/17/21 Unknown Urine Bacteria (Auto) 3+ /HPF (Negative) 07/17/21 Unknown Urine Mucus Few /HPF 07/17/21 Unknown Urine Yeast (Budding) 1+ /HPF 07/17/21 Unknown Urine Sperm 1+ /HPF (INFUSION PHARMACIST) 07/17/21 Unknown Salicylates < 0.3 mg/dL (2.8-20.0) L 07/16/21 09:57 Urine Opiates Screen Negative 07/17/21 Unknown Urine Methadone Screen Negative 07/17/21 Unknown Acetaminophen 5.0 ug/mL (10.0-30.0) L 07/16/21 09:57 Ur Barbiturates Screen Negative 07/17/21 Unknown Ur Phencyclidine Scrn Negative 07/17/21 Unknown Ur Amphetamines Screen Negative 07/17/21 Unknown U Benzodiazepines Scrn Positive 07/17/21 Unknown Urine Cocaine Screen Negative 07/17/21 Unknown U Marijuana (THC) Screen Negative 07/17/21 Unknown Drugs of Abuse Note Disclamer 07/17/21 Unknown Plasma/Serum Alcohol < 0.01 % (0-0.07) 07/16/21 09:57 [place]/IV: Voiding Method Toilet Active Medications - Current Medications Current Medications: Generic Name Dose Route Start Last Admin Trade Name Freq PRN Reason Stop Dose Admin Acetaminophen 650 mg 07/16/21 17:44 Acetaminophen 325 Mg Tab PO Q4H PRN Pain MILD(1-3)/Fever >100.5/WRAY Albuterol 2.5 mg 07/16/21 17:44 Albuterol 2.5 Mg/3 Ml Nebu IH Q4HRT PRN Shortness Of Breath Atenolol 50 mg 07/22/21 10:00 07/26/21 09:16 Atenolol 50 Mg Tab PO Not Given QDAY MAU Chlordiazepoxide HCl 10 mg 07/25/21 22:00 07/26/21 09:13 Chlordiazepoxide 5 Mg Cap PO 10 mg BID MAU Administration Folic Acid 1 mg 07/17/21 10:00 07/26/21 09:13 Folic Acid 1 Mg Tab PO 1 mg QDAY MAU Administration Hydralazine HCl 10 mg 07/18/21 22:18 07/22/21 05:27 Hydralazine 20 Mg/1 Ml Inj IV 10 mg Q6H PRN Administration Hypertension Potassium Chloride 40 meq 07/22/21 10:00 07/26/21 09:11 Potassium Chloride Er 20 Meq Tab PO 07/27/21 09:59 40 meq QDAY MAU Administration Sodium Chloride 10 ml 07/16/21 22:00 07/26/21 09:13 Sodium Chloride 0.9% 10 Ml Flush Syringe IV 10 ml BID MAU Administration Sodium Chloride 10 ml 07/16/21 17:44 07/21/21 05:01 Sodium Chloride 0.9% 10 Ml Flush Syringe IV 10 ml PRN PRN Administration LINE FLUSH Thiamine HCl 100 mg 07/24/21 10:00 07/26/21 09:13 Thiamine 100 Mg Tab PO 100 mg QDAY MAU Administration Nutrition/Malnutrition Assess - Dietary Evaluation Nutrition/Malnutrition Findings: Nutrition Notes Start: 07/17/21 12:11 Freq: Status: Active Protocol: Document 07/19/21 15:21 GEORGIE (Rec: 07/19/21 15:42 GEORGIE [id number]) Nutrition Notes Initial or Follow up Reassessment Other Pertinent Diagnosis Delirium T, Met Encephalopathy & Acidosis, Transaminitis, ETOH Withdrawal S Current Diet Pureed (since D 07/18). Labs/Tests 07/19: K 3.0, Crea 0.7, Glu 149, Phos 2.2. Pertinent Medications 07/19: D5/0.45ns 1,000 ml @ 75 ml/Hr, Folic ac, Phos-NaK, others nutritionally unremarkable. Height 5 ft 6 in Weight 76.3 kg [place] Body Weight (kg) 64.54 BMI 27.1 Weight change and time frame Slight body weight change, 811 g reported. Subjective/Other Information RD consult for routine F/U on diet advancement. No report available on %PO intake of meals at the time. Percent of energy/protein needs met: Prescribed Pureed Diet provides for energy/protein needs (1,804 Kcal/77 g) during LOS. Burn Absent Trauma Absent GI Symptoms None Difficulty In Chewing Food Allergy No Skin Integrity/Comment Clear, warm, dry. Minimum of two criteria No Is patient on ventilator? No Is Patient Ambulatory and/or Out of Bed Yes REE-([place]. or-ambulatory/OOB) [ 2009.475 [id number]] Kcal/Kg value to use for calculation 30 Approximate Energy Requirements Using 2289 kcal/Kg Calculation Used for Recommendations Kcal/kg Additional Notes Protein: 1-1.2 g/Kg; 65-78 g/ day (from IBW + critical care) . Fluids: 1 ml/Kcal, or as per MD. Nutrition Intervention Change Diet Order: Continue Pureed Diet. Goal #1 Maintain body weight within +/ -3% of current BWt during LOS. Goal #2 Reach and maintain acceptable chemistry lab values during LOS. Follow-Up By: 07/26/21 Additional Comments Continue monitoring food tolerance, %PO intake of meals , Hydration, and BM.
[2021-07-27] MEDS: THIAMINE 100 MG TAB PO SCH (09:30)
[2021-07-27] MEDS: FOLIC ACID 1 MG TAB PO SCH (09:31)
[2021-07-27] MEDS: atenoloL 50 MG TAB PO SCH (09:34)
--- NOTE | 2021-07-27 16:28 | Discharge Summary ---
Providers - Providers Date of Admission: 07/16/21 17:44 Date of discharge: 07/27/21 Attending physician: ASIF FREDERICK MD 07/26/21 10:54 Physical Therapy Evaluation and Treat [CONS] Stat Comment: Reason For Exam: Eval and treat 07/26/21 10:55 Occupational Therapy Evaluate and Treat [CONS] Stat Comment: Reason For Exam: Eval and treat Primary care physician: BOOK EDITOR Hospitalization Condition: Stable Hospital course: 55 YO Male with ETOH Dependence presents to ED for evaluation. Patient is stuporous with diminished cognition and history provided by EMS staff, ED staff, as well as information gained from [facility]. As per staff EMS was notified by [facility] when patient was found to be confused and approached a neighbor for assistance. Patient found to be tremulous, with confabulations, nausea, and have clinical symptoms consistent with delirium tremens, metabolic acidosis, metabolic encephalopathy, as well as chronic liver disease complicated by elevated liver function test. Patient admitted to medical floor and initiated on CIWA protocol and treated with supportive care. Assessment and plan: (1) Delirium tremens Current Visit: Yes Status: Acute Plan to address problem: Alcohol withdrawal protocol: CIWA protocol, IV fluid resuscitation therapy, banana bag, thiamine, folic acid, multivitamin, magnesium repletion, phosphorus repletion, neuro check, seizure precautions, aspiration precautions Day 7 since admitted, remains on CIWA protocol. More alert and less confused today. Not tremulous. Will DC wrist restraints. Will DC CIWA protocol and place him on Librium 25 mg every 8 hours and monitor. (2) Metabolic encephalopathy Current Visit: Yes Status: Acute Plan to address problem: CTA, neuro check, seizure cautions, aspiration precautions, supportive care. (3) Metabolic acidosis Current Visit: Yes Status: Acute Plan to address problem: BMP, IV fluid resuscitation therapy, repeat BMP in a.m. (4) Transaminitis Current Visit: Yes Status: Acute Borderline diabetes mellitus, hemoglobin A1c ADA diet 1800 sharla, start Metformin 500 mg daily and follow-up with PCP Hypokalemia on daily potassium supplementation, 40 mg daily, continue to monitor potassium daily Hypomagnesemia Magnesium remains low, 1.5 today though replaced daily, ordered mag sulfate 3 g IV x1 dose. Hypophosphatemia Replaced and stable Disposition: HOME / SELF CARE / HOMELESS Exam - Constitutional Vitals: Temp Pulse Resp BP Pulse Ox 98.6 F 69 19 126/78 97 07/27/21 11:35 07/27/21 11:35 07/27/21 11:35 07/27/21 11:35 07/27/21 11:35 General appearance: Present: no acute distress - EENT Eyes: Present: PERRL, EOM intact ENT: clear oral mucosa - Neck Neck: Present: supple - Respiratory Respiratory effort: normal Respiratory: bilateral: CTA - Cardiovascular Rhythm: regular - Extremities Extremities: No edema - Abdominal General gastrointestinal: Present: soft, non-tender, non-distended, normal bowel sounds - Integumentary Integumentary: Absent: rash - Psychiatric Psychiatric: appropriate mood/affect - Neurologic Neurologic: no focal deficits, moves all extremities, other (Patient is alert and fully oriented. Answering questions appropriately. No tremulousness. No tremors. Walking normally.) Plan Activity: advance as tolerated Diet: regular, diabetic (1800 sharla) Additional Instructions: Do not drink alcohol. You have a mild diabetes. Use low sugar diet, ADA 1800 sharla. You are given a prescription for Metformin to take once a daily. See your family doctor in 1 week for follow-up Follow up with: PRIMARY CARE, [Primary Care Provider] - 3-5 Days Prescriptions: metFORMIN XR [Glucophage XR] 500 mg PO QDAY #30 tab Magnesium Oxide [Mag-Ox] 400 mg PO QDAY #10 tablet Multivitamin 1 each PO DAILY #30 tablet atenoloL [Tenormin] 50 mg PO QDAY #30 tablet Thiamine [Vitamin B-1] 100 mg PO QDAY #30 tablet
[2021-07-27 17:49] VITALS: BP 128/84
== END 2021-07-27 20:23 | disposition home or self-care (01) | DRG 71 ==
LOC: ED 09:27 → 3A 17:44
PROVIDERS: ADMIT Internal Medicine; ATTEND Internal Medicine
DX: G93.41 Metabolic encephalopathy (principal); F10.231 Alcohol dependence with withdrawal delirium; E87.2 Acidosis; R74.01 Elevation of levels of liver transaminase levels; E83.42 Hypomagnesemia; D69.6 Thrombocytopenia, unspecified; E87.6 Hypokalemia; E83.39 Other disorders of phosphorus metabolism; Z20.822 Contact with and (suspected) exposure to COVID-19; R73.03 Prediabetes
CPT/HCPCS: 36415; 70450; 71045; 72125; 80048; 80053; 80307; 80320; 81001; 82140; 82550; 82962; 83036; 83735; 84100; 84132; 85007; 85025; 85027; 85610; 85730; 87086; 93005; 94640; 94760; G0378; J3490; J7070; J7510; Q0162; G0480; J0360; J1630; J1953; J1956; J2060; J3360; J3411; J3475; J7030; J7040; J7120